=== PATIENT | female | born 1935 | race Caucasian/White ===

== ENCOUNTER 2021-01-14 01:06 | Emergency (ER) | payer MEDICARE, SELFPAY ==
[2021-01-14] VITALS (8 sets, daily range): BP systolic 136–152; BP diastolic 59–87; PULSE 73–75; RESP 14–22; TEMP 36.4; O2SAT 97–100
--- NOTE | ~2021-01-14 | XR_ITS ---
EXAMINATION: XR chest 2V DATE: 01/14/2021 01:43 INDICATION: Dizziness TECHNIQUE: frontal and lateral views of the chest were obtained. COMPARISON: Chest radiograph dated 01/25/[address] dated 12/04/2017 FINDINGS: The lungs remain clear with no focal airspace opacities, pulmonary edema, pleural effusion or pneumot horax. Heart size is normal. Moderate-sized hiatal hernia. Atherosclerotic thoracic aorta. Severe tho racolumbar spondylosis. IMPRESSION: 1. No acute cardiopulmonary disease. 2. Moderate-sized hiatal hernia. Reviewed, dictated and finalized at location A.
--- NOTE | 2021-01-14 01:18 | ECG_ITS ---
Measurements Intervals [place] Rate: 74 P: 44 [place]: 193 QRS: 3 QRSD: 72 T: 31 QT: 380 QTc: 424 Interpretive Statements SINUS RHYTHM CANNOT RULE OUT SEPTAL INFARCT, AGE INDETERMINATE CONSIDER INFERIOR INFARCT, AGE INDETERMINATE BASELINE ARTIFACT- II, III, AVR, AVF ABNORMAL ECG Electronically Signed On 01-14-2021 7:37:45 CDT by Alessandro Tao D.O.
--- NOTE | 2021-01-14 01:33 | PC.NURSE ---
Patient in Xray at this time.
--- NOTE | 2021-01-14 01:37 | ED.DIZZY ---
HPI - Dizziness History of Present Illness HPI Narrative: Dizziness since about 11 PM last night. Feels like light headedness. Only while standing. Mild nausea earlier in the day. No CP, SOB. She has chronic sinus issues, which have been worse recently. Related Data Allergies Allergy/AdvReac Type Severity Reaction Status Date / Time neomycin Allergy Unknown Other Verified 01/19/21 14:23 pregabalin Allergy Unknown Other Verified 01/19/21 14:23 Review of Systems Review of Systems: All systems reviewed & are unremarkable except as noted in HPI and below Constitutional: Constitutional: Denies chills, Denies fever(s) and Denies weakness ENT: Denies vertigo, Reports dizziness and Denies sore throat Cardiovascular: Cardiovascular: Denies chest pain Respiratory: Respiratory: Denies dyspnea Gastrointestinal: Gastrointestinal: Denies abdominal pain and Reports nausea Genitourinary: Genitourinary: Denies hematuria and Denies dysuria Musculoskeletal: Musculoskeletal: Denies back pain Neurologic: Denies confusion, Reports dizziness, Denies headache(s) and Denies weakness [facility] Past Medical History Medical History Anxiety Ataxia Benign essential hypertension BMI 24.0-24.9, adult Chronic rhinitis Colon cancer screening Constipation, chronic Cough Cutaneous cyst Elective procedure for unacceptable cosmetic appearance Encounter for routine adult health examination without abnormal findings Episodic weakness Follow up Hx of Cutler's palsy Hypokalemia Hyponatremia Left ankle swelling Left-sided chest pain LLQ abdominal pain Lower abdominal pain Lumbar radiculopathy Lumbar spondylosis Mixed hyperlipidemia Neuropathy Numbness and tingling of left side of face 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 [employer] Gender identity (if verbalized by the patient): Female Exam Const: General: healthy appearing, no acute distress and alert Orientation/consciousness: patient oriented x3 HENMT: Head: normal to inspection Ears: TM's normal bilaterally Mouth: Yes moist mucous membranes Eyes: Pupils: Equal, round and reactive pupils present EOM: EOMs intact bilaterally Neck: Neck: normal visual inspection Resp: Effort & Inspection: normal respiratory effort Auscultation: clear to auscultation bilaterally, no rales, no rhonchi and no wheezes Cardio: Jugular venous distension: no JVD Rate: regular rate Rhythm: regular rhythm Heart sounds: no murmurs GI: Inspection: non-distended GI Palp: Yes Soft to palpation and No Tenderness to palpation present (GI) Skin: General skin exam: normal color Neuro: General: patient oriented x3 and moves all extremities Speech: normal speech Extrem: General: no edema Psych: Appearance: well kempt Affect: normal affect Course Vital Signs Vital signs: Vital Signs Temperature 36.4 C 01/14/21 01:10 Pulse Rate 74 01/14/21 01:10 Respiratory Rate 14 01/14/21 01:10 Blood Pressure 137/87 01/14/21 01:10 Pulse Oximetry 97
[2021-01-14] MEDS: SODIUM CHLORIDE 0.9% IV 1,000 ML 999 ML IV CONT (01:42)
[2021-01-14] MEDS: MECLIZINE HCL 25 MG TABLET PO (01:42)
[2021-01-14 02:42] LABS: Alanine Aminotransferase 18 U/L (4-35); Albumin Level 3.6 g/dL (3.5-5.1); Alkaline Phosphatase 56 U/L (38-126); Anion Gap 6 mmol/L (8-16); Aspartate Amino Transferase 23 U/L (14-36); Bilirubin,Total 0.2 mg/dL (0.2-1.3); Blood Urea Nitrogen 22 mg/dL (7-17); Calcium 8.5 mg/dL (8.4-10.2); Carbon Dioxide 26 mmol/L (22-30); Chloride 105 mmol/L (98-107); Estimated CRCL calculation 46 ml/min; Estimated Glomerular Filt Rate > 60; Glucose 91 mg/dL (65-110); Potassium 3.7 mmol/L (3.4-5.0); Sodium 137 mmol/L (137-145)
[2021-01-14 02:53] LABS: Basophils Percent Auto 0.5 % (0.2-1.2); Eosinophils Absolute Auto 0.1 K/mm3 (0-0.3); Eosinophils Percent Auto 1.8 % (0-4.4); Hematocrit 36.3 % (37.0-47.0); Hemoglobin 11.4 g/dL (12.0-15.0); Immature Granulocyte Absolute 0.01 K/mm3 (0.00-0.031); Immature Granulocyte Percent A 0.2 % (0-0.5); Lymphocytes Absolute Auto 1.78 K/mm3 (0.9-3.2); Lymphocytes Percent Auto 31.2 % (18.3-44.2); Mean Corpuscular HGB Conc 31.4 g/dl (32-36); Mean Corpuscular Hemoglobin 28.8 pg (26-34); Mean Corpuscular Volume 91.7 fl (80-100); Mean Platelet Volume 9.2 fl (7.4-10.4); Monocytes Absolute Auto 0.6 K/mm3 (0.1-0.6); Monocytes Percent Auto 10.5 % (2.6-8.5); Neutrophils Absolute Auto 3.2 K/mm3 (1.3-6.7); Neutrophils Percent Auto 55.8 % (45.5-73.1); Platelet Count Result 243 k/mm3 (150-375); Red Blood Count 3.96 M/mm3 (4.2-5.4); White Blood Count 5.7 K/mm3 (4.5-10.0)
[2021-01-14 02:56] LABS: Add Urine Microscopic? YES; Appearance Urine Clear (Clear); Bilirubin Urine Negative (Negative); Blood Urine Negative (Negative); Color Urine Yellow (Yellow); Glucose Urine UA Negative (Negative); Ketones Urine Negative (Negative); Leukocyte Esterase Ur Negative LEU/UL (Negative); Nitrate Urine Negative (Negative); Protein Urine Negative (Negative); Specific Grav Ur 1.013 (1.001-1.035); Squamous Epithelial Cell Urine Rare /hpf (Few); Urobilinogen Urine Negative mg/dL (<2.0); WBC Urine 0-3 /hpf
== END 2021-01-14 04:31 ==
PROVIDERS: Emergency Provider Emergency Medicine; PCP Family Medicine
DX: R42 Dizziness and giddiness (principal); I10 Essential (primary) hypertension; E78.2 Mixed hyperlipidemia; G62.9 Polyneuropathy, unspecified; R73.03 Prediabetes; E04.1 Nontoxic single thyroid nodule; Z77.22 Contact with and (suspected) exposure to environmental tobacco smoke (acute) (chronic); R94.31 Abnormal electrocardiogram [ECG] [EKG]
CPT/HCPCS: 36415; 71046; 80053; 81001; 85025; 93005; 96360; 99283; A9270; J7030

== ENCOUNTER 2022-04-01 12:03 | Emergency (ER) | payer MEDICARE, BC, SELFPAY ==
--- NOTE | ~2022-04-01 | XR_ITS ---
EXAMINATION: XR foot LT min 3V DATE: 04/01/2022 12:47 INDICATION: Lateral pain and tenderness at the metatarsals post twisting injury TECHNIQUE: Dorsoplantar, two oblique and lateral views of the left foot were obtained. COMPARISON: 04/04/2015 FINDINGS: Diffuse osteopenia. The prior avulsion fracture at the lateral base of the fifth metatarsal has heale d in essentially anatomic alignment. No acute fractures. Stable appearance of a small amount of chron ic nonaggressive appearing periosteal reaction along the diaphysis of the second-fourth metatarsals. Mild to moderate polyarticular osteoarthritis involving the calcaneocuboid, talonavicular, first and second metatarsophalangeal and multiple tarsometatarsal and interphalangeal joints. No erosions to marks ggest inflammatory arthritis. Soft tissues are unremarkable. IMPRESSION: 1. 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 No acute osseous abnormali ty. Reviewed, dictated and finalized at location A. IMPRESSION: 1. 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 No a cute osseous abnormality.
[2022-04-01 12:07] VITALS: BP 163/78; PULSE 102; RESP 18; TEMP 36.9; O2SAT 97
--- NOTE | 2022-04-01 12:23 | ED.LOWEXIN ---
HPI - Extremity Injury (Lower) General Chief Complaint: Extremity Injury, Lower Stated Complaint: Left Foot Pain Time Seen by Provider: 04/01/22 12:15 Source: patient and family Mode of arrival: ambulatory Limitations: no limitations History of Present Illness HPI Narrative: 86 years old white female came to the ED with left foot pain laterally after getting out of a chair to stand up. No specific trauma, patient denies other injuries. History of osteopenia Related Data Allergies Allergy/AdvReac Type Severity Reaction Status Date / Time neomycin Allergy Unknown Other Verified 01/19/21 14:23 pregabalin Allergy Unknown Other Verified 01/19/21 14:23 Review of Systems Review of Systems: All systems reviewed & are unremarkable except as noted in HPI and below PMFSH Past Medical History Medical History Anxiety Ataxia Benign essential hypertension BMI 24.0-24.9, adult Chronic rhinitis Colon cancer screening Constipation, chronic Cough Cutaneous cyst Elective procedure for unacceptable cosmetic appearance Encounter for routine adult health examination without abnormal findings Episodic weakness Follow up Hx of Cutler's palsy Hypokalemia Hyponatremia Left ankle swelling Left-sided chest pain LLQ abdominal pain Lower abdominal pain Lumbar radiculopathy Lumbar spondylosis Mixed hyperlipidemia Neuropathy Numbness and tingling of left side of face 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, no gross motor deficit Course Course Emergency Course: Stable Vital Signs Vital signs: Vital Signs Temperature 36.9 C 04/01/22 12:07 Pulse Rate 102 H 04/01/22 12:07 Respiratory Rate 18 04/01/22 12:07 Blood Pressure 163/78 H 04/01/22 12:07 Pulse Oximetry 97 04/01/22 12:07 Oxygen Delivery Room Air 04/01/22 12:07 Temperature 36.9 C 04/01/22 12:07 Pulse Rate 102 H 04/01/22 12:07 Respiratory Rate 18 04/01/22 12:07 Blood Pressure 163/78 H 04/01/22 12:07 Pulse Oximetry 97 04/01/22 12:07 Oxygen Delivery Room Air 04/01/22 12:07 MDM - Extremity Injury (Lower) Differential Diagnosis Differential diagnosis: Likely other (Fracture, strain, sprain) Imaging Data Radiologist's impression: Impressions Foot X-Ray 04/01/22 12:56 IMPRESSION: 1. Mild to moderate polyarticular osteoarthritis throughout th
== END 2022-04-01 13:25 | disposition home or self-care (01) ==
PROVIDERS: Emergency Provider Emergency Medicine; PCP Family Medicine
DX: S93.602A Unspecified sprain of left foot, initial encounter (principal); X50.0XXA Overexertion from strenuous movement or load, initial encounter; I10 Essential (primary) hypertension; F41.9 Anxiety disorder, unspecified; K59.09 Other constipation; E78.2 Mixed hyperlipidemia; G62.9 Polyneuropathy, unspecified; R73.03 Prediabetes
CPT/HCPCS: 73630; 99283

== ENCOUNTER 2022-05-14 13:26 | Outpatient (CLI) | payer MEDICARE, BC, SELFPAY ==
--- NOTE | ~2022-05-14 | MMUS_ITS ---
EXAMINATION: MM diagnostic lee ann RT w wen, US breast RT limited HISTORY: Right breast tenderness, history of left mastectomy TECHNIQUE: Craniocaudal, mediolateral, and mediolateral oblique 3-D tomosynthesis images of the right breast were performed and synthetic 2-D images were generated. CAD analysis was submitted and interp reted. High resolution limited right breast ultrasound was performed. COMPARISON: 05/06/1917, 10/14/2015 BREAST PARENCHYMAL COMPOSITION: There are scattered areas of fibroglandular density. FINDINGS: MAMMOGRAPHIC FINDINGS: No suspicious mass, calcification, or architectural distortion are identified malignancy. There has been no suspicious interval change. No mammographic correlate is identified for the reported right b reast tenderness. ULTRASOUND: There is no evidence of focal abnormal solid or cystic mass in the vicinity of the patient's right br east pain. IMPRESSION: 1. No specific mammographic or sonographic correlate is identified for the patient's right breast estella n. Further evaluation at this time should be based on clinical assessment. Continued follow-up physic al examination is recommended. BI-RADS Category 1: Negative Reviewed, dictated and finalized at location A. ITION CONSULTANT IMPRESSION: 1. No specific mammographic or sonographic correlate is identified for the loi ent's right breast pain. Further evaluation at this time should be based on cli nical assessment. Continued follow-up physical examination is recommended. BI-RADS Category 1: Negative
== END 2022-05-14 13:27 | disposition home or self-care (01) ==
PROVIDERS: PCP Family Medicine; Visit Provider Nurse Practitioner Family
DX: N64.4 Mastodynia (principal)
CPT/HCPCS: 76642; 77061; 77065; G0279

== ENCOUNTER 2022-08-02 13:06 | Outpatient (CLI) | payer MEDICARE, BC, SELFPAY ==
--- NOTE | ~2022-08-02 | MR_ITS ---
EXAMINATION: MR brain/brain stem wo con DATE: 08/02/2022 13:45 INDICATION: Facial numbness. TECHNIQUE: Magnetic resonance imaging (MRI) of the brain and brainstem was performed without intraven ous contrast. COMPARISON: Brain MRI 07/04/16 FINDINGS: There are scattered areas of nonspecific increased T2-weighted signal intensity in the cere bral white matter, deep white nuclei, and rei. There is no intracranial hemorrhage, acute infarction, or abnormal intracranial mass lesion. The ventricles are normal in size. There are likely changes of ocular lens replacement surgeries. The paranasal sinuses are clear. The mastoid air cells are normal . IMPRESSION: 1. Extensive nonspecific cerebral white matter disease and disease of the deep white nuclei and rei, which likely represents chronic small vessel ischemic disease, worsened from 07/04/2016. Reviewed, dictated and finalized at location A. HOUSE SUPERVISOR IMPRESSION: 1. Extensive nonspecific cerebral white matter disease and disease of the deep white nuclei and rei, which likely represents chronic small vessel ischemic dis ease, worsened from 07/04/2016.
== END 2022-08-02 13:07 | disposition home or self-care (01) ==
PROVIDERS: PCP Family Medicine; Visit Provider Nurse Practitioner Family
DX: R20.2 Paresthesia of skin (principal); R93.0 Abnormal findings on diagnostic imaging of skull and head, not elsewhere classified
CPT/HCPCS: 70551

== ENCOUNTER 2022-11-26 09:24 | Observation (INO) | payer MEDICARE, BC, SELFPAY ==
[2022-11-26] VITALS (17 sets, daily range): BP systolic 140–178; BP diastolic 58–104; PULSE 78–100; RESP 13–27; TEMP 36.2–37; O2SAT 94–98; BMI 24.4
--- NOTE | ~2022-11-26 | CT_ITS ---
EXAMINATION: CTA brain carotid DATE: 11/26/2022 12:00 INDICATION: Left facial tingling. TECHNIQUE: Computed tomographic angiography (CTA) of the head was performed without and with 100 mL O mnipaque-350 intravenous contrast. CTA of the neck was performed with intravenous contrast. Automated exposure control and iterative reconstruction technique were employed. The dose-length product was 1 705.97 mGy-cm. Maximum intensity projection and volume rendered 3D-reconstructions were created by pradeep garcia technologist on a separate workstation. COMPARISON: Head CT 01/25/2017 FINDINGS: HEAD CTA: There are scattered areas of low attenuation in the cerebral white matter. There is an infa rct in left thalamus. There is no acute intracranial hemorrhage or abnormal mass lesion. The ventricl es are normal in size. There is mild mucosal thickening in the paranasal sinuses. The mastoid air astrid ls are normal. The vertebral arteries are codominant. There is no significant stenosis of basilar art wilfrid or the posterior cerebral arteries. There is no significant stenosis of intracranial internal car otid arteries or anterior or middle cerebral arteries. Anterior communicating artery is normal. The p osterior communicating arteries are normal. There is no aneurysm. NECK CTA: There are nodules in the thyroid measuring up to 13 mm, likely not clinically significant. Calcified mediastinal lymph nodes are consistent with old granulomatous disease. There is no signific ant stenosis of the vertebral arteries. There is plaque in the proximal internal carotid arteries. Th ere is 0% stenosis of the proximal right internal carotid artery relative to normal distal artery lum en diameter (NASCET criteria). There is 0% stenosis of the proximal left internal carotid artery rela tive to normal distal artery lumen diameter. There is severe cervical spondylosis. IMPRESSION: 1. 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 2. Stable extensive nonspecific cerebral white matter disease, which likely represents chronic small vessel ischemic disease. 3. No aneurysm or significant intracranial arterial stenosis. 4. 0% stenosis of the proximal internal carotid arteries relative to normal distal artery lumen diame ters (NASCET criteria). Reviewed, dictated and finalized at location A. IMPRESSION: 1. 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 2. Stable extensive nonspecific cerebral white matter disease, which likely rep resents chronic small vessel ischemic disease. 3. No aneurysm or significant intracranial arterial stenosis. 4. 0% stenosis of the proximal internal carotid arteries relative to normal dis martha artery lumen diameters (NASCET criteria).
--- NOTE | 2022-11-26 09:54 | ED.DIZZY ---
HPI - Dizziness General Chief Complaint: Neuro Symptoms/Deficit <Berto Kendrick PA-C - Last Filed: 11/26/22 15:26> Stated Complaint: facial numbness <ENRIQUETA Inigeuz Last Filed: 11/26/22 15:26> Time Seen by Provider: 11/26/22 09:37 <Berto Kendrick PA-C - Last Filed: 11/26/22 15:26> Source: patient <ENRIQUETA Iniguez Last Filed: 11/26/22 15:26> Mode of arrival: ambulatory <ENRIQUETA Iniguez Last Filed: 11/26/22 15:26> Limitations: no limitations <ENRIQUETA Iniguez Last Filed: 11/26/22 15:26> History of Present Illness HPI Narrative: This is an 87-year-old female with history of spinal stenosis, HTN, facial paresthesias who presents to the ED with chief complaint of left-sided facial numbness and tingling. Reports this has been an intermittent problem for several months this episode has been going on since yesterday afternoon. States she has been seen for this before and told she may have Cutler's palsy or a facial paresthesia. Patient states that she is coming here today because it is acutely worse and she is not able to get into neurology until December. Patient reports some drooping of the left corner of the mouth. Denies any fevers, chills, hearing loss, tinnitus, vision changes, dysarthria, falls, weakness. She is ambulatory with cane here. States she normally uses a rollator due to her chronic lower leg paresthesias. Per chart review MRI in July 2022 shows: 1. Extensive nonspecific cerebral white matter disease and disease of the deep white nuclei and rei, which likely represents chronic small vessel ischemic disease, worsened from 07/04/2016. <ENRIQUETA Iniguez Last Filed: 11/26/22 15:26> Related Data Home Medications: Home Medications Medication Instructions Recorded Confirmed aspirin 81 mg tablet,delayed 81 mg PO DAILY 04/24/22 11/26/22 release calcium carbonate 600 mg-vitamin 2 tablet PO DAILY 04/24/22 11/26/22 D3 5 mcg (200 unit) tablet polyethylene glycol 3350 17 17 g PO DAILY PRN Constipation 04/24/22 11/26/22 gram/dose oral powder (Miralax) vitamin B complex 1 tablet PO DAILY 04/24/22 11/26/22 acetaminophen 325 mg tablet 650 mg PO Q8H PRN Pain 11/26/22 11/26/22 (Tylenol) celecoxib 200 mg capsule (Celebrex) 400 mg PO DAILY arthritis 11/26/22 11/26/22 felodipine 10 mg tablet,extended 10 mg PO DAILY 11/26/22 11/26/22 release 24 hr losartan 25 mg tablet 25 mg PO DAILY 11/26/22 11/26/22 melatonin 1 mg tablet 1 mg PO HS PRN Insomnia 11/26/22 11/26/22 mv-mn-folic 200 mcg-vit K 15 2 cap PO DAILY 11/26/22 11/26/22 mcg-lutein 5 mg-zeaxanthin 1 mg capsule (PreserVision AREDS 2 Plus Multivit) <Berto Kendrick PA-C - Last Filed: 11/26/22 15:26> Allergies/Adverse Reactions: Allergies Allergy/AdvReac Type Severity Reaction Status Date / Time neomycin Allergy Unknown Other Verified 11/26/22 18:21 pregabalin Allergy Unknown Other Verified 11/26/22 18:21 <Berto Kendrick PA-C - Last Filed: 11/26/22 15:26> Review of Systems Review of Systems: CONSTITUTIONAL: Denies fever, chills, or sweats. EYES: Denies visual changes, redness, or discharge. ENT: Denies rhinorrhea, congestion, sore throat, or otalgia. CARDIOVASCULAR: Denies chest pain, palpitations, or edema. RESPIRATORY: Denies cough or dyspnea. GASTROINTESTINAL: Denies abdominal pain, nausea, vomiting, or diarrhea. GENITOURINARY: Denies dysuria or hematuria. SKIN: Denies rash or itching. MUSCULOSKELETAL: Denies back pain, joint pain, or myalgia. NEUROLOGIC: See HPI PSYCHIATRIC: Denies anxiety or depression. <Berto Kendrick PA-C - Last Filed: 11/26/22 15:26> [facility] Past Medical History Medical History: Medical History (Updated 11/26/22 @ 13:01 by Berto Kendrick PA-C) Anxiety Ataxia Benign essential hypertension BMI 22.0-22.9, adult BMI 23.0-23.9, adult BMI 24.0-24.9, adult Chronic rhinitis Colon cancer screening Constipation, chronic Cough Cutaneous cyst
[2022-11-26 10:37] LABS: Basophils Absolute Auto 0.1 K/mm3 (0.0-0.1); Basophils Percent Auto 0.9 % (0.2-1.2); Eosinophils Absolute Auto 0.2 K/mm3 (0-0.3); Eosinophils Percent Auto 3.4 % (0-4.4); Hematocrit 42.4 % (37.0-47.0); Immature Granulocyte Absolute 0.02 K/mm3 (0.00-0.031); Immature Granulocyte Percent A 0.4 % (0-0.5); Lymphocytes Absolute Auto 1.36 K/mm3 (0.9-3.2); Lymphocytes Percent Auto 24.6 % (18.3-44.2); Mean Platelet Volume 9.2 fl (7.4-10.4); Monocytes Absolute Auto 0.6 K/mm3 (0.1-0.6); Monocytes Percent Auto 10.3 % (2.6-8.5); Neutrophils Absolute Auto 3.3 K/mm3 (1.3-6.7); Neutrophils Percent Auto 60.4 % (45.5-73.1); Platelet Count Result 269 k/mm3 (150-375); Red Blood Count 4.51 M/mm3 (4.2-5.4); Red Cell Distribution Width 11.9 % (11.5-14.5); White Blood Count 5.5 K/mm3 (4.5-10.0)
[2022-11-26 10:44] LABS: INR 0.9; Prothrombin Time 13.1 Seconds (11.1-14.7)
[2022-11-26 10:45] LABS: Alanine Aminotransferase 23 U/L (6-35); Albumin Level 4.1 g/dL (3.5-5.1); Alkaline Phosphatase 57 U/L (38-126); Anion Gap 3 mmol/L (8-16); Aspartate Amino Transferase 30 U/L (14-36); Bilirubin,Total 0.5 mg/dL (0.2-1.3); Blood Urea Nitrogen 15 mg/dL (7-17); Calcium 9.4 mg/dL (8.4-10.2); Carbon Dioxide 32 mmol/L (22-30); Chloride 103 mmol/L (98-107); Estimated CRCL calculation 44 ml/min; Estimated Glomerular Filt Rate > 60; Glucose 93 mg/dL (65-110); Sodium 138 mmol/L (137-145)
--- NOTE | 2022-11-26 17:20 | ADMGEN ---
This patient, Patricia Fabian, was admitted to Medical Room 249-01. Patient/family oriented to hospital policies and general routines including ID bracelet, bed and alarms, visiting hours, pain management, procedures, bathroom and other care routines, personal items, smoking policy, room service/diet, and visiting hours. Information on how to activate the Rapid Response Team has been discussed. Patient/Family are encouraged to report perceived risks to care and to ask questions if they do not understand what they are told or what they should do.
--- NOTE | 2022-11-26 21:42 | PM.IMHP ---
H&P: HPI History of Present Illness Date/Time: 11/26/22 19:30 Chief Complaint: Numbness and tingling on the left side of the face. Narrative: This is a very pleasant 87-year-old female with hypertension, hyperlipidemia, and GERD who presented to the emergency department via pre vehicle from home for evaluation of numbness and tingling on the left side of the face. The patient provides the following history. She has had intermittent paresthesias on the left side of her face for years and on occasion she has some drooping of the left side of her mouth. At 1 point in time her doctor thought perhaps she had Cutler palsy but could not say for certain. Brain MRI done in July 2022 showed extensive nonspecific cerebral white matter disease and disease of the deep white nuclei and rei likely representing chronic small-vessel ischemic disease. She was referred to Neurology for evaluation of the symptoms however does not have an appointment until February. Today she had worsening symptoms including numbness and tingling on the left forehead and left cheek including the left side of her lips. She also reports having a fullness in her ears and when she tried to clean it out with a Q-tip she noticed a small amount of blood so she came in for evaluation. Aside from a small amount of blood on the Q-tip, none of these symptoms are new today or acutely worse. CT of the head and neck today showed an age-indeterminate infarct in the left thalamus which is new from 01/25/2017, and no aneurysm or significant intracranial stenosis, and no stenosis of the proximal internal carotid arteries, and stable extensive nonspecific cerebral white matter disease. ED provider discussed the case with Dr. Orellana who recommends admitting her for further evaluation. At the time my evaluation she is resting comfortably and has no specific complaints. She denies fever, chills, sweats, headache, ear pain, sinus congestion, sore throat, difficulty speaking and swallowing, chest pain, nausea, vomiting, diarrhea, dysuria, and edema. Review of Systems Review of Systems: Twelve systems were reviewed and are negative except for as per HPI. [facility] Past Medical History Medical History (Updated 11/27/22 @ 00:13 by Lis Rosado PA-C) Anxiety Benign essential hypertension Cancer of left breast Gastroesophageal reflux disease History of Cutler's palsy Lumbar radiculopathy Lumbar spondylosis Mixed hyperlipidemia Peripheral neuropathy Pre-diabetes Pulmonary nodule Transient ischemic attack Vascular malformation Surgical History Surgical History (Updated 11/26/22 @ 21:51 by Lis Rosado PA-C) History of appendectomy History of cataract extraction History of left knee replacement History of left mastectomy Family History Family History Father Carcinoma of colon Mother No problems noted. Sibling Neuropathy Other Malignant neoplasm of prostate Social History Social History (Updated 11/26/22 @ 21:52 by Lis Rosado PA-C) Social History: Surrogate medical decision maker: Nate Fabian, son. Code status: Full code. Smoking status: Never smoker Second hand tobacco smoke exposure: Yes Alcohol intake: current Drinks per week: 1 Substance use: never Substance use type: does not use Lack of Transportation: No Lack of Food: Never True Current Housing: I Have Housing Concerned About Future Housing: No Difficulty Paying Gas/Electric Bills: No Difficulty Paying for Meds: No Currently Unemployed: No Education: High School Diploma/GED Difficulty w/ Childcare or Family Care: No Living arrangements: alone Additional living arrangements comments: Independent living at [facility]. 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 Spiritual care concerns: No Meds Home M
[2022-11-27] VITALS: PULSE 81
--- NOTE | 2022-11-27 00:17 | ECHO_ITS ---
Patient Info Name: Patricia Fabian Age: 87 years : 1935 Gender: Female Ht: 62 in Wt: 133 lbs BSA: 1.64 m2 HR: 68 bpm BP: 142 / 57 mmHg Heart Rhythm: Sinus Rhythm Technical Quality: Good Exam Date: 11/27/2022 10:15 AM Exam Location: [facility] Pulmonary Patient Status: Outpatient Admit Date: 11/26/2022 Staff Ordering Physician: Lis Rosado PA-C Power Hair Clipper: Shari Boyer RDCS Attending Provider: Alfredo Michael MD Referring Physician: Ashlee WHYTE; Exam Type: CA echo doppler w bubble study Study Info Indications - neurologic symptoms, htn Complete two-dimensional, color flow and Doppler transthoracic echocardiogram is performed with agitated saline. Contrast/Agitated Saline Contrast/Ag. Saline: Agitated Saline Amount: 20.00 ml Administered By: Sallie Armstrong RDCS Existing IV Access: Yes IV Access Condition: patent with no signs of infiltration Summary 1. Left ventricular chamber dimension is normal. 2. Left ventricular systolic function is hyperdynamic, estimated at >70%. Abnormal LVOT contour without significant gradient. 3. There is mildly increased left ventricular wall thickness. 4. The left ventricular diastolic function is grade I diastolic dysfunction. 5. No clear evidence for [id number] atrial shunt with injection of agitated saline with and without Valsalva. 6. There is mild mitral valve regurgitation. 7. There is no aortic valve stenosis. 8. There is mild tricuspid valve regurgitation. 9. No pulmonary hypertension, estimated pulmonary arterial systolic pressure is 30 mmHg. Left Ventricle Left ventricular chamber dimension is normal. Left ventricular systolic function is hyperdynamic, estimated at >70%. Abnormal LVOT contour without significant gradient. There is mildly increased left ventricular wall thickness. The left ventricular diastolic function is grade I diastolic dysfunction. Right Ventricle Right ventricular chamber dimension is normal. Right ventricular systolic function is normal. Left Atria Left atrial chamber dimension is normal. Right Atria Right atrial chamber dimension is normal. Atrial Septum No clear evidence for [id number]-[id number] atrial shunt with injection of agitated saline with and without Valsalva. Aortic Valve The aortic valve is trileaflet. There is mild aortic valve sclerosis. There is no aortic valve stenosis. There is no aortic valve regurgitation. Pulmonic Valve The pulmonic valve is not well visualized. There is mild pulmonic regurgitation. Mitral Valve The mitral valve has thickened leaflets. There is mild mitral valve regurgitation. The mitral valve annulus is moderately calcified. Tricuspid Valve The tricuspid valve leaflets are normal. There is mild tricuspid valve regurgitation. No pulmonary hypertension, estimated pulmonary arterial systolic pressure is 30 mmHg. Pericardium/Pleural The pericardium appears normal. There is no pericardial effusion. Inferior Vena Cava Normal inferior vena cava with >50% collapse upon inspiration consistent with normal right atrial pressure, 5 mmHg. Aorta The aortic root size at the sinus of Valsalva is normal. There is mild aortic atherosclerosis. Left Ventricular Outflow Tract Name Value Normal LVOT 2D LVOT Diameter
[2022-11-27 04:00] VITALS: PULSE 65
[2022-11-27 05:06] VITALS: BP 142/59; PULSE 68; RESP 18; TEMP 36.1; O2SAT 97
[2022-11-27 08:00] VITALS: PULSE 78
[2022-11-27] MEDS: FERROUS SULFATE 324 MG TABLET PO (08:01)
[2022-11-27] MEDS: CELECOXIB 200 MG CAPSULE 400 MG PO (08:01)
[2022-11-27] MEDS: PANTOPRAZOLE 40 MG TABLET PO (08:02)
[2022-11-27] MEDS: ASPIRIN 81 MG ENTERIC TABLET PO (08:02)
[2022-11-27] MEDS: VITAMIN B COMPLEX CAPSULE 1 CAP PO (08:02)
[2022-11-27] MEDS: PRAVASTATIN SODIUM 20 MG TABLET PO (08:03)
[2022-11-27] MEDS: OPTI-GEN TAB 1 TABLET PO (08:03)
[2022-11-27] MEDS: FELODIPINE 5 MG TAB CR 10 MG PO (08:03)
[2022-11-27] MEDS: MIRABEGRON 25 MG ER TABLET PO (08:03)
[2022-11-27] MEDS: LOSARTAN POTASSIUM 25 MG TABLET PO (08:03)
--- NOTE | 2022-11-27 11:03 | WPDNEURCNPN ---
Assessment and Plan Assessment and plan (1) Peripheral neuropathy: Code(s): G62.9 - Polyneuropathy, unspecified Status: Acute (2) Facial paresthesia: Code(s): R20.2 - Paresthesia of skin Status: Acute Plan Left-sided facial symptomatology with no evidence of abnormalities on the MRI of the brain or CTA of the brain could be related to the local problem the investigations have been ordered to rule out the possibility of the TIA on the basis of the cardiac origin that is echocardiogram otherwise she can continue only on aspirin and I will make a thorough discussion with her while her her son is listening to our discussion she is taking all the medications accordingly she does have a 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 Consult date: 11/27/22 HPI: Patricia Fabian is a 87 year old femaleAdmitted to the hospital through the emergency room the complaints of facial paresthesia and left-sided facial numbness of intermittent in nature but of long duration though with recent x-rays survey gaona as per the patient she had been told in the past that it could be related to the Cutler's palsy the reason she came to the emergency room because it was worse than before she also reported that she noted the drooping of the left corner of the mouth but she gave no history of any other generalized symptomatology her medications included aspirin 81 mg daily losartan 25 mg daily she is allergic to neomycin and pregabalin and has ongoing history of in the past anxiety and ataxia also pre diabetes She drinks only 1 drink per week and initial exam in the emergency room was documented as normal except the subjectively altered sensation in V2 and V3 distribution on the left side. Vital signs were normal with blood pressure 160/72, CBC was normal X so as the CMP and complete lab was normal also.. Pertinent radiological investigations include CTA of the brain which documents infarct in the left thalamus which is new from January 25, 2017 and extensive nonspecific white matter changes but no aneurysm or intracranial arterial stenosis jann proximal internal carotid arteries bilaterally. MRI of the brain in July was with extensive nonspecific white matter disease and disease of the deep white nuclei and rei on the basis of chronic Review of Systems Review of Systems: All systems reviewed & are unremarkable except as noted in HPI and below PMFSH Past Medical History Medical History (Updated 11/27/22 @ 00:13 by Lis Rosado PA-C) Anxiety Benign essential hypertension Cancer of left breast Gastroesophageal reflux disease History of Cutler's palsy Lumbar radiculopathy Lumbar spondylosis Mixed hyperlipidemia Peripheral neuropathy Pre-diabetes Pulmonary nodule Transient ischemic attack Vascular malformation Surgical History Surgical History (Updated 11/26/22 @ 21:51 by Lis Rosado PA-C) History of appendectomy History of cataract extraction History of left knee replacement History of left mastectomy Family History Family History Father Carcinoma of colon Mother No problems noted. Sibling Neuropathy Other Malignant neoplasm of prostate Social History Social History (Updated 11/26/22 @ 21:52 by Lis Rosado PA-C) Social History: Surrogate medical decision maker: Nate Fabian, son. Code status: Full code. Smoking status: Never smoker Second hand tobacco smoke exposure: Yes Alcohol intake: current Drinks per week: 1 Substance use: never Substance use type: does not use Lack of Transportation: No Lack of Food: Never True Current Housing: I Have Housing Concerned About Future Housing: No Difficulty Paying Gas/Electric Bills: No Difficulty Paying for Meds: No Currently Unemployed: No Educatio
--- NOTE | 2022-11-27 12:35 | PM.DS ---
DS: Admitting Diagnosis Discharge Date 11/27/2022 Admitting Diagnosis Numbness and tingling on the left side of the face. DS: Discharge Diagnosis Discharge Diagnosis Plan The patient presented to the emergency department for evaluation of left-sided paresthesias as detailed in HPI. This is unfortunately been an ongoing issue for several years and seems to come and go. Today her symptoms worse than usual and she noticed a small amount of blood on a Q-tip when she went to clean out her left ear and this prompted her to come in for evaluation. CTA of the brain and carotids showed an age-indeterminate infarct in the left thalamus which is new from 01/25/2017, stable extensive nonspecific cerebral white matter disease which likely represents chronic small-vessel ischemic disease, no aneurysm or significant arterial stenosis, and 0.7 stenosis of the proximal internal carotid arteries. Brain MRI in July showed extensive nonspecific cerebral white matter disease in disease of the deep white nuclei and rei which likely represents chronic small-vessel ischemic disease. Due to her ongoing symptoms in inability to see a neurologist for almost another 6 months, she is being admitted for close monitoring and neurology consultation. She has minimal deficits on exam, mainly subjective change in touch and slight left-sided mouth droop. She will be monitor on telemetry. Echocardiogram with bubble has been ordered. Check vitamin B12 levels. Continue neurologic checks. She does have idiopathic peripheral neuropathy in her feet and was tried on Lyrica previously but she had allergic reaction to that. Her blood pressures have been running in the 150s to 160 systolic. Continue current antihypertensives and trend for now. The rest of her home medications will be reviewed and resumed as appropriate. DS: Summary Hospital Course Reason for hospitalization: Numbness and tingling on the left side of the face. Narrative: This is a very pleasant 87-year-old female with hypertension, hyperlipidemia, and GERD who presented to the emergency department via pre vehicle from home for evaluation of numbness and tingling on the left side of the face. The patient provides the following history. She has had intermittent paresthesias on the left side of her face for years and on occasion she has some drooping of the left side of her mouth. At 1 point in time her doctor thought perhaps she had Cutler palsy but could not say for certain. Brain MRI done in July 2022 showed extensive nonspecific cerebral white matter disease and disease of the deep white nuclei and rei likely representing chronic small-vessel ischemic disease. She was referred to Neurology for evaluation of the symptoms however does not have an appointment until February. Today she had worsening symptoms including numbness and tingling on the left forehead and left cheek including the left side of her lips. She also reports having a fullness in her ears and when she tried to clean it out with a Q-tip she noticed a small amount of blood so she came in for evaluation. Aside from a small amount of blood on the Q-tip, none of these symptoms are new today or acutely worse. CT of the head and neck today showed an age-indeterminate infarct in the left thalamus which is new from 01/25/2017, and no aneurysm or significant intracranial stenosis, and no stenosis of the proximal internal carotid arteries, and stable extensive nonspecific cerebral white matter disease. ED provider discussed the case with Dr. Orellana who recommends admitting her for further evaluation. At the time my evaluation she is resting comfortably and has no specific complaints. She denies fever, chills, sweats, headache, ear pain, sinus congestion, sore throat, difficulty speaking and swallowing, chest pain, nausea, vomiting, diarrhea, dysuria, and edema. Hospital Course: 87-year-old feel presents with an complaint of numbness and tingling on left side her face CTA scan of the head a
== END 2022-11-27 13:35 | disposition home or self-care (01) ==
LOC: ANHED 13:01 → ANH2MED 11-27 10:24 → ANH3MEDSUR 11-29 09:43
PROVIDERS: Physician Assistant; Admitting Provider Hospitalist; Emergency Provider Physician Assistant; PCP Family Medicine; Visit Provider Family Medicine
DX: R20.2 Paresthesia of skin (principal); R20.0 Anesthesia of skin; R29.810 Facial weakness; H93.90 Unspecified disorder of ear, unspecified ear; I11.9 Hypertensive heart disease without heart failure; G62.9 Polyneuropathy, unspecified; M48.00 Spinal stenosis, site unspecified; R90.82 White matter disease, unspecified; F41.9 Anxiety disorder, unspecified; K59.09 Other constipation; I08.3 Combined rheumatic disorders of mitral, aortic and tricuspid valves; E78.2 Mixed hyperlipidemia; R73.03 Prediabetes; Z77.22 Contact with and (suspected) exposure to environmental tobacco smoke (acute) (chronic); F10.90 Alcohol use, unspecified, uncomplicated; Z87.898 Personal history of other specified conditions; Z79.82 Long term (current) use of aspirin; Z79.1 Long term (current) use of non-steroidal anti-inflammatories (NSAID); Z79.899 Other long term (current) drug therapy; Z82.0 Family history of epilepsy and other diseases of the nervous system
CPT/HCPCS: 36415; 70496; 70498; 80053; 82607; 84443; 85025; 85610; 93306; 96375; 99285; A9270; G0378; Q9967

== ENCOUNTER 2023-08-02 10:50 | Inpatient (IN) | payer MEDICARE, BC, SELFPAY ==
[2023-08-02] VITALS (15 sets, daily range): BP systolic 151–186; BP diastolic 63–94; PULSE 85–112; RESP 14–19; TEMP 36.3–37.1; O2SAT 96–98; BMI 21.9
--- NOTE | ~2023-08-02 | MR_ITS ---
EXAMINATION: MR brain/brain stem wo con DATE: 08/03/2023 12:45 INDICATION: Confusion TECHNIQUE: Magnetic resonance imaging (MRI) of the brain and brainstem was performed without intraven ous contrast. Sequences included sagittal and axial T1-weighted SE, axial diffusion-weighted FS SE, a xial T2*-weighted GRE, axial T2-weighted FLAIR, and axial T2-weighted FSE. Postcontrast axial and cor onal T1-weighted SE was obtained. Apparent diffusion coefficient (ADC) maps were created. COMPARISON: None. FINDINGS: There are no areas of restricted diffusion to suggest acute infarction. Small old lacunar infarct at the left thalamus. No intracranial hemorrhage or abnormal intracranial mass lesion. There are scatter ed areas of nonspecific increased T2-weighted signal intensity in the pontine and cerebral white rosalba er, predominantly involving the deep and periventricular white matter. There are no intraparenchymal signal abnormalities seen on the other pulse sequences. The ventricles are symmetric and normal in si ze. There are no abnormal extra-axial fluid collections. Flow voids are seen in the cerebral arteries on the T2-weighted sequences consistent with their expected patency. Changes of bilateral intraocula r lens replacement. Visualized orbits and soft tissues are unremarkable. IMPRESSION: 1. 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 No acute intracranial process. 2. Moderate scattered nonspecific pontine common cerebral white matter T2 hyperintensity consistent w ith chronic small vessel ischemic disease. Reviewed, dictated and finalized at location A. URE FINISHER IMPRESSION: 1. 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 No acute intracranial process. 2. Moderate scattered nonspecific pontine common cerebral white matter T2 hyper intensity consistent with chronic small vessel ischemic disease.
--- NOTE | ~2023-08-02 | CT_ITS ---
EXAMINATION: CTA BRAIN/CAROTID DATE: 08/02/2023 14:32 INDICATION: Confusion with altered mental status TECHNIQUE: Computed tomographic angiography (CTA) of the head and neck was performed with 100 mL Omni paque-350 intravenous contrast. Multiplanar reconstructions and maximum intensity projection 3D-recon structions of the carotid arteries and of the intracranial arteries were created by the technologist on a separate workstation. Automated exposure control and iterative reconstruction technique were emp loyed.The dose-length product was 1059.02 mGy-cm. COMPARISON: None. FINDINGS: Carotid arteries: There is motion artifact at the level of the odontoid process which he does not affect assessment at the right carotid bulb where there is a small amount of atherosclerotic plaque with 0% stenosis of th e right carotid bulb relative to normal distal artery lumen diameter (NASCET criteria). There is reuben on artifact at the level of the left carotid bulb. There is a small amount of nonhemodynamically sign ificant atherosclerotic plaque at the distalmost left common carotid artery but no discernible athero sclerotic plaque at the level of the right carotid bulb. Calcified nodule at the right upper lobe. Vi sualized upper lungs are otherwise unremarkable. Severe cervical spondylosis. Intracranial arteries There is significant motion artifact at the level of the carotid canals at the petrous bones as well as at the level of the distal vertebral and proximal basilar arteries which are unable to be diagnost ically assessed at this level. The bilateral vertebral arteries are codominant. There is atherosclero tic calcification without hemodynamic significant stenosis at the bilateral vertebral arteries and at the bilateral carotid siphons. No other hemodynamically significant stenosis in the non obscured por tions of the vertebral, basilar and internal carotid arteries. There are no aneurysms identified. Wero th A1 and P1 segments are patent. Cerebral arterial arborization appears symmetric. IMPRESSION: 1. Limited assessment at the level of the left carotid bulb, distal vertebral and proximal basilar ar teries and at the petrous portion of the bilateral internal carotid arteries due to significant motio n artifact at these levels. 2. 0% stenosis of the right carotid bulb relative to normal distal artery lumen diameter (NASCET crit eria). 3. No discernible atherosclerotic plaque at the left carotid bulb however assessment is moderately li mited by motion. 4. Scattered nonhemodynamically significant atherosclerotic plaque at the visualized portions of the bilateral vertebral arteries and at the bilateral carotid siphons. No aneurysm, hemodynamically signi ficant stenosis or necrosis of the cerebral arteries At or above the level of the [place]. Reviewed, dictated and finalized at location A. CTION WAX MOLDER IMPRESSION: 1. Limited assessment at the level of the left carotid bulb, distal vertebral a nd proximal basilar arteries and at the petrous portion of the bilateral qa intern al carotid arteries due to significant motion artifact at these levels. 2. 0% stenosis of the right carotid bulb relative to normal distal artery lumen diameter (NASCET criteria). 3. No discernible atherosclerotic plaque at the left carotid bulb however asses sment is moderately limited by motion. 4. Scattered nonhemodynamically significant atherosclerotic plaque at the visua lized portions of the bilateral vertebral arteries and at the bilateral carotid siphons. No aneurysm, hemodynamically significant stenosis or necrosis of the cerebral arteries At or above the level of the [place].
--- NOTE | ~2023-08-02 | CT_ITS ---
EXAMINATION: CT brain wo con DATE: 08/02/2023 14:03 INDICATION: Confusion TECHNIQUE: Computed tomography (CT) of the head was performed without intravenous contrast. The mA wa s adjusted according to patient size. Iterative reconstruction technique was employed. Exam dose: 60 5.33 mGy-cm total exam DLP. COMPARISON: 11/26/2022 CTA brain carotid 08/02/2022 MRI brain/brainstem FINDINGS: Bilateral vertebral artery, basilar artery and carotid siphon internal carotid artery calci fications. Bilateral basal ganglia calcifications. There is prominent patchy diminished attenuation of the cerebral white matter, nonspecific, likely du e to chronic small vessel ischemic changes. Chronic lacunar infarct of left thalamus. No intracranial mass lesion or hemorrhage or cerebrovascular accident, midline shift or mass effect i s detected otherwise. No subdural or epidural hematoma. The orbital contents are unremarkable. Included paranasal sinuses and mastoid air cells are normally developed and aerated. No fracture or bone destruction of the cranial vault. IMPRESSION: Chronic lacunar infarct of the thalamus Cerebral atherosclerosis and chronic small vessel ischemic changes of the cerebral white matter No acute intracranial finding Reviewed, dictated and finalized at Location A. Reviewed, dictated and finalized at location B. ITY ENGINEER MEDICAL DEVICE IMPRESSION: Chronic lacunar infarct of the thalamus Cerebral atherosclerosis and chronic small vessel ischemic changes of the cereb ral white matter No acute intracranial finding
--- NOTE | ~2023-08-02 | CT_ITS ---
EXAMINATION: CT abdomen pelvis wo con DATE: 08/03/2023 13:17 INDICATION: right flank pain, mciroscopic hematuria TECHNIQUE: Computed tomography (CT) of the abdomen and pelvis was performed without intravenous contr ast. Automated exposure control and iterative reconstruction technique were employed. The dose-length product was 292.83 mGy-cm. COMPARISON: 09/20/2016; CT chest 12/04/2017. FINDINGS: Lower thorax: Multiple right lung pulmonary nodules, all of which demonstrate slight interval increas e in size since the prior study. Large hiatal hernia. Mitral annulus calcification. Liver: Normal. Biliary/Gallbladder: Gallbladder contains excreted contrast. No bile duct dilation. Pancreas: No mass. Stable chronic duct dilation. Spleen: Normal. Adrenals: Bilateral adrenal thickening, likely hyperplasia. Kidneys: No suspicious mass, obstructing stone, or hydronephrosis. Punctate bilateral nonobstructing calcifications. Subcentimeter left midpole hypodensity may represent hemorrhagic or proteinaceous cys t. GI tract: No small or large bowel dilation. The appendix is not confidently visualized. Diverticulosi s without diverticulitis. Mesentery/Peritoneum: No ascites, mass, or free air. Retroperitoneum: No mass. Atherosclerotic abdominal aortic and/or arterial calcifications. Pelvis: Excreted contrast in the urinary bladder. Contrast in the vaginal cuff, likely refluxed urine . Normal uterus. Ovaries not identified. Soft Tissues: Soft tissues and body wall unremarkable. Bones: No acute osseous finding. Multilevel severe degenerative disc disease. Grade 1/2 anterolisthe sis at L4-5 with severe central canal stenosis. IMPRESSION: Multiple right lung pulmonary nodules demonstrating slow interval growth since the prior study in 201 8. Given the slow growth, benign disease is favored. No CT evidence of obstructive uropathy. Bilateral adrenal hyperplasia. Reviewed, dictated and finalized at location K. NG MACHINE OPERATOR IMPRESSION: Multiple right lung pulmonary nodules demonstrating slow interval growth since the prior study in 2018. Given the slow growth, benign disease is favored. No CT evidence of obstructive uropathy. Bilateral adrenal hyperplasia.
--- NOTE | ~2023-08-02 | CT_ITS ---
EXAMINATION: CTA neck DATE: 08/03/2023 13:17 INDICATION: altered LOC, previous images insufficient TECHNIQUE: Computed tomographic angiography (CTA) of the neck was performed with 100 mL Omnipaque-350 intravenous contrast. Automated exposure control and iterative reconstruction technique were employe d. The dose-length product was 510.45 mGy-cm. Maximum intensity projection and volume rendered 3D-re constructions were created by the technologist on a separate workstation. COMPARISON: 08/02/2023. FINDINGS: CTA NECK: Aortic arch and proximal great vessels: Bovine arch anatomy. Moderate arch calcifications. Right common carotid, carotid bifurcation, and internal carotid artery: Mild calcification at the bif urcation.There is 0% stenosis of the proximal right internal carotid artery relative to normal distal artery lumen diameter (NASCET criteria). Left common carotid, carotid bifurcation, and internal carotid artery: Mild calcification at the bifu rcation.There is 0% stenosis of the proximal left internal carotid artery relative to normal distal a rtery lumen diameter (NASCET criteria). Vertebral arteries: No significant plaque or stenosis. Vertebral arteries co-dominant. Other findings: Cervical spondylosis. Thyroid nodules, previously evaluated by thyroid ultrasound. IMPRESSION: No carotid or vertebral artery occlusion, dissection, or significant stenosis. Reviewed, dictated and finalized at location K. CAR PUSHER
--- NOTE | ~2023-08-02 | MR_ITS ---
EXAMINATION: MRA brain wo con DATE: 08/03/2023 13:00 INDICATION: Altered level of consciousness EXAMINATION: MRA brain wo con TECHNIQUE: Magnetic resonance angiography (MRA) of the brain was performed without intravenous contrast by the 3 D [id number] technique. COMPARISON: Brain CT angiogram dated 08/02/2023 and 11/26/2022 FINDINGS: There is normal flow related signal seen within the vertebral, basilar and internal carotid arteries. Bilateral vertebral arteries are codominant. No evident hemodynamically significant stenosis or aneu rysms identified. Both A1 and P1 segments are patent. There appears to also be a patent anterior com municating artery. Flow in the cerebral arteries is symmetric. IMPRESSION: 1. No aneurysm or significant intracranial arterial stenosis. Reviewed, dictated and finalized at location A. NSE EXAMINER
--- NOTE | 2023-08-02 11:23 | ECG_ITS ---
Measurements Intervals [place] Rate: 89 P: 63 FL: 173 QRS: 37 QRSD: 76 T: 52 QT: 336 QTc: 411 Interpretive Statements SINUS RHYTHM POSSIBLE LEFT ATRIAL ENLARGEMENT [-0.1mV P WAVE IN V1/V2] ANTEROSEPTAL MYOCARDIAL INFARCTION , OF INDETERMINATE AGE [40+ ms Q WAVE IN V1-V4] ABNORMAL ECG COMPARED TO ECG 01/14/2021 01:21:41 NO SIGNIFICANT CHANGES Electronically Signed On 08-02-2023 15:27:14 TUMBLER TENDER by Greg Ureña M.D.
[2023-08-02 11:43] LABS: Basophils Percent Auto 0.6 % (0.2-1.2); Eosinophils Percent Auto 0.3 % (0-4.4); Hematocrit 44.2 % (37.0-47.0); Hemoglobin 14.3 g/dL (12.0-15.0); Immature Granulocyte Absolute 0.01 K/mm3 (0.00-0.031); Immature Granulocyte Percent A 0.1 % (0-0.5); Lymphocytes Absolute Auto 0.85 K/mm3 (0.9-3.2); Lymphocytes Percent Auto 12.1 % (18.3-44.2); Mean Corpuscular HGB Conc 32.4 g/dl (32-36); Mean Corpuscular Hemoglobin 30.6 pg (26-34); Mean Corpuscular Volume 94.4 fl (80-100); Mean Platelet Volume 9.1 fl (7.4-10.4); Monocytes Absolute Auto 0.5 K/mm3 (0.1-0.6); Monocytes Percent Auto 6.4 % (2.6-8.5); Neutrophils Absolute Auto 5.7 K/mm3 (1.3-6.7); Neutrophils Percent Auto 80.5 % (45.5-73.1); Platelet Count Result 299 k/mm3 (150-375); Red Blood Count 4.68 M/mm3 (4.2-5.4); Red Cell Distribution Width 12.1 % (11.5-14.5)
[2023-08-02 11:56] LABS: Alanine Aminotransferase 21 U/L (6-35); Albumin Level 4.3 g/dL (3.5-5.1); Alkaline Phosphatase 59 U/L (38-126); Anion Gap 5 mmol/L (8-16); Aspartate Amino Transferase 25 U/L (14-36); Bilirubin,Total 0.8 mg/dL (0.2-1.3); Blood Urea Nitrogen 19 mg/dL (7-17); Calcium 9.9 mg/dL (8.4-10.2); Carbon Dioxide 31 mmol/L (22-30); Chloride 98 mmol/L (98-107); Estimated CRCL calculation 41 ml/min; Estimated Glomerular Filt Rate > 60; Glucose 144 mg/dL (65-110); Sodium 134 mmol/L (137-145)
[2023-08-02 11:59] LABS: INR 0.9; Partial Thromboplastin Time 24.8 SECONDS (22.3-36.8); Prothrombin Time 12.1 Seconds (11.1-14.7)
--- NOTE | 2023-08-02 12:50 | ED.AMS ---
HPI - Altered Mental Status General Chief Complaint: Altered Mental Status Stated Complaint: confusion, not talking right Time Seen by Provider: 08/02/23 12:50 History of Present Illness HPI narrative: Patient is an 88-year-old female with history of prior TIA with left facial deficits at that time, HTN here with confusion. Daughter believes sometime this morning she must have become more altered because when she went to see her, her pants were on backwards and her shoes were on the wrong feet. She was also using her purse like an ipad and told her daughter that her manual was broken when describing her symptoms. Daughter is unsure of witnessed last known normal, believes it was likely some time yesterday by staff as she lives independently at an assisted living facility. She reportedly told EMS that her left face felt numb, she denies numbness now. Of note, she did have some diarrhea last week, otherwise no recent illnesses. Daughter does not believe she is on blood thinners. Related Data Home Medications Medication Instructions Recorded Confirmed aspirin 81 mg tablet,delayed 81 mg PO DAILY 04/24/22 07/11/23 release calcium carbonate 600 mg-vitamin 2 tablet PO DAILY 04/24/22 07/11/23 D3 5 mcg (200 unit) tablet polyethylene glycol 3350 17 17 g PO DAILY PRN Constipation 04/24/22 07/11/23 gram/dose oral powder (Miralax) vitamin B complex 1 tablet PO DAILY 04/24/22 07/11/23 acetaminophen 325 mg tablet 650 mg PO Q8H PRN Pain 11/26/22 07/11/23 (Tylenol) mv-mn-folic 200 mcg-vit K 15 2 cap PO DAILY 11/26/22 07/11/23 mcg-lutein 5 mg-zeaxanthin 1 mg capsule (PreserVision AREDS 2 Plus Multivit) Allergies Allergy/AdvReac Type Severity Reaction Status Date / Time neomycin Allergy Unknown Other Verified 07/11/23 11:02 pregabalin Allergy Unknown Other Verified 07/11/23 11:02 linzess AdvReac Severe diarrhea Uncoded 07/11/23 11:02 Review of Systems Review of Systems: ROS unobtainable: Yes unobtainable due to mental status PMFSH Past Medical History Medical History (Updated 08/02/23 @ 17:42 by Lis Rosado PA-C) Anxiety Benign essential hypertension Cancer of left breast Gastroesophageal reflux disease History of Cutler's palsy Lumbar radiculopathy Lumbar spondylosis Mixed hyperlipidemia Peripheral neuropathy Pre-diabetes Pulmonary nodule Transient ischemic attack Vascular malformation Surgical History Surgical History History of appendectomy History of cataract extraction History of left knee replacement History of left mastectomy Family History Family History Father Carcinoma of colon Mother No problems noted. Sibling Neuropathy Brain tumor Other Malignant neoplasm of prostate Social History Social History Social History: Surrogate medical decision maker: Nate Fabian, son. Code status: Full code. Smoking status: Never smoker Second hand tobacco smoke exposure: Yes Alcohol intake: current Drinks per week: 1 Substance use: never Substance use type: does not use Lack of Transportation: No Lack of Food: Never True Current Housing: I Have Housing Concerned About Future Housing: No Difficulty Paying Gas/Electric Bills: No Difficulty Paying for Meds: No Currently Unemployed: No Education: High School Diploma/GED Difficulty w/ Childcare or Family Care: No Living arrangements: alone Additional living arrangements comments: Independent living at [facility]. 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 Spiritual care concerns: No Exam Narrative: GENERAL: Well-appearing, well-nourished, and in no acute distress. HEAD: Normocephalic, atraumatic. EYES: PERRLA and
[2023-08-02 16:16] LABS: Troponin I < 0.012 ng/mL (0.000-0.034)
[2023-08-02] MEDS: SODIUM CHLORIDE 0.9% IV 1,000 ML 999 ML IV CONT (17:02)
[2023-08-02 17:19] LABS: Influenza A QL RT-PCR Negative (Negative); Influenza B QL RT-PCR Negative (Negative); RSV RNA, RT-PCR Negative (Negative); SARS-CoV-2 RNA PCR Negative (Negative)
[2023-08-02 17:23] LABS: Appearance Urine Clear (Clear); Bacteria Urine None Seen /hpf; Bilirubin Urine Negative (Negative); Blood Urine 2+ (Negative); Color Urine Yellow (Yellow); Glucose Urine UA Negative (Negative); Ketones Urine 2+ mg/dL (Negative); Leukocyte Esterase Ur 1+ LEU/UL (Negative); Need Manual Microscopic Reviewed; Nitrate Urine Negative (Negative); Non Pathogenic Casts 0-2; Protein Urine 1+ mg/dL (Negative); Squamous Epithelial Cell Urine Occasional /hpf (Few); Urobilinogen Urine 0.2 mg/dL (<2.0); WBC Urine 51-100 /hpf
[2023-08-02 17:38] LABS: Add Urine Microscopic? YES; Specific Grav Ur 1.039 (1.001-1.035)
--- NOTE | 2023-08-02 17:40 | PM.IMHP ---
H&P: HPI History of Present Illness Date/Time: 08/02/23 20:15 Chief Complaint: Confusion. Narrative: This is an 87-year-old female with hypertension, hyperlipidemia, and GERD who presented to the emergency department for evaluation of confusion. She remains confused and is not an accurate historian and thus a majority the following is obtained via a review of her EMR as well as information provided by her daughter. Daughter went to visit the patient this morning and she found the patient wearing her clothes backwards with shoes on the wrong feet. She was noted to be using her pursed as a laptop and told her daughter that she was working on something because ?her manual was broken.? Daughter called 911 and on EMS arrival she reportedly told them that the left side of her face felt numb. It is noted that she was previously admitted with left face paresthesias in November 2022 at which time her workup was really unremarkable. The patient is very independent and this confusion is extraordinarily unusual behavior for her. Her last known normal was about 16:00 yesterday. She has not had any recent illnesses though daughter reports she had diarrhea last week. No reports of recent changes in medications. No evidence of recent fall. At the time my evaluation the patient has no complaints though she remains quite confused. She is aware that she is in the hospital but does not remember why she was brought here today. She denies headache, visual changes, focal weakness, paresthesias, chest pain, slurred speech, difficulty swallowing, chest pain, and palpitations. In the ED: She was afebrile on arrival. Blood pressures have been running in the 160s to 180s systolic. Heart rate has been in the low 100s, in a sinus tachycardia. Labs were pretty unremarkable with the only outliers being a sodium of 131, carbon dioxide 31, BUN 19. Urine specific gravity was elevated with 1+ protein, 2+ ketones, 2+ blood, 1+ leukocyte esterase, 11 to 20 RBC, 51 to 100 WBC, and occasional squamous cells. No bacteria were noted. She was negative for influenza, RSV, and COVID. CTA of the head and neck showed no acute findings but was a bit limited due to motion artifact. Review of Systems Review of Systems: Twelve systems were reviewed and are negative except for as per HPI. [facility] Past Medical History Medical History (Updated 08/02/23 @ 17:54 by Lis Rosado PA-C) Anxiety Benign essential hypertension Cancer of left breast Gastroesophageal reflux disease History of Cutler's palsy Lumbar radiculopathy Lumbar spondylosis Mixed hyperlipidemia Peripheral neuropathy Pre-diabetes Pulmonary nodule Transient ischemic attack Vascular malformation Surgical History Surgical History History of appendectomy History of cataract extraction History of left knee replacement History of left mastectomy Family History Family History Father Carcinoma of colon Mother No problems noted. Sibling Neuropathy Brain tumor Other Malignant neoplasm of prostate Social History Social History Social History: Surrogate medical decision maker: Nate Fabian, son. Code status: Full code. Smoking status: Never smoker Second hand tobacco smoke exposure: Yes Alcohol intake: current Drinks per week: 1 Substance use: never Substance use type: does not use Do You Feel Safe in your Home?: Yes Lack of Transportation: No Lack of Food: Never True Current Housing: I Have Housing Concerned About Future Housing: No Difficulty Paying Gas/Electric Bills: No Difficulty Paying for Meds: No Currently Unemployed: No Education: High School Diploma/GED Difficulty w/ Childcare or Family Care: No Living arrangements: alone Additional living arrangements comments:
[2023-08-02 18:24] LABS: Ammonia < 9 umol/L (9-30)
[2023-08-02 18:33] LABS: Amphetamine Screen Urine Negative (Negative); Barbiturate Screen Urine Negative (Negative); Benzodiazepines Screen Urine Negative (Negative); Cannabinoid Screen Urine Negative (Negative); Cocaine Screen Urine Negative (Negative); Methadone Screen Urine Negative (Negative); Opiate Screen Urine Negative (Negative); Phencyclidine Screen Urine Negative (Negative)
--- NOTE | 2023-08-02 18:55 | ADMGEN ---
This patient, Patricia Fabian, was admitted to Medical Room 250-01. Patient/family oriented to hospital policies and general routines including ID bracelet, bed and alarms, visiting hours, pain management, procedures, bathroom and other care routines, personal items, smoking policy, room service/diet, and visiting hours. Information on how to activate the Rapid Response Team has been discussed. Patient/Family are encouraged to report perceived risks to care and to ask questions if they do not understand what they are told or what they should do.
--- NOTE | 2023-08-02 19:51 | PC.NURSE ---
Pt unable to answer questions due to confusion, Nate son answered questions to his knowledge and recalled information from previous visit
--- NOTE | 2023-08-02 19:58 | PC.NURSE ---
Verified meds with external records unable to verify OTC medication.
[2023-08-03] VITALS (9 sets, daily range): BP systolic 136–169; BP diastolic 56–61; PULSE 74–99; RESP 14–18; TEMP 36.5–37.1; O2SAT 96–97
--- NOTE | 2023-08-03 | ECHO_ITS ---
Patient Info Name: Patricia Fabian Age: 88 years : 1935 Gender: Female Ht: 62 in Wt: 130 lbs BSA: 1.62 m2 HR: 81 bpm BP: 160 / 61 mmHg Heart Rhythm: Sinus Rhythm Technical Quality: Good Exam Date: 08/03/2023 10:32 AM Exam Location: Echo Lab Patient Status: Inpatient Admit Date: 08/02/2023 Staff Ordering Physician: Hema Talley APRN Routing Clerk: Ricky Chavis RDCS Attending Provider: Sade Tello MD Referring Physician: Mayank BOWER; Exam Type: CA echo doppler w bubble study Study Info Indications - confusion Complete two-dimensional, color flow and Doppler transthoracic echocardiogram is performed with agitated saline. Summary 1. Mild left ventricular hypertrophy with hyperdynamic systolic function and grade 1 diastolic noncompliance. 2. Mild sclerosis of the aortic valve with well maintained leaflet excursion. 3. Trivial amount of mitral regurgitation. 4. Agitated saline contrast injection demonstrates no shunt. 5. Echocardiogram done in this laboratory in November of 2022 demonstrated identical findings. Left Ventricle Left ventricular chamber dimension is normal. Left ventricular systolic function is hyperdynamic, estimated at >70%. There is mild concentric increased left ventricular wall thickness. The left ventricular diastolic function is grade I diastolic dysfunction. Right Ventricle Right ventricular chamber dimension is normal. Left Atria Left atrial chamber dimension is normal. Right Atria Right atrial chamber dimension is normal. Atrial Septum Intact interatrial septum visualized by agitated saline imaging. Aortic Valve The aortic valve is trileaflet. There is mild aortic valve sclerosis. Pulmonic Valve The pulmonic valve is normal. Mitral Valve The mitral valve has normal leaflets. There is trace mitral valve regurgitation. The mitral valve annulus is mildly calcified. Tricuspid Valve The tricuspid valve leaflets are normal. Pericardium/Pleural The pericardium appears normal. Aorta The aortic root size at the sinus of Valsalva is normal. Left Ventricular Outflow Tract Name Value Normal LVOT 2D LVOT Diameter 1.8 cm LVOT Doppler LVOT Peak Gradient 12 mmHg LVOT Mean Gradient 9 mmHg LVOT VTI 34 cm LVOT VTI/AV VTI Ratio 1.0 LVOT Stroke Volume 84 ml LVOT CO 6.4 l/min LVOT CI 4.0 l/min/m2 Pulmonic Valve Name Value Normal RVOT Doppler RVOT Peak Gradient 4 mmHg PV Doppler PV Peak Gradient 3 mmHg Mitral Valve Name Value Normal
[2023-08-03 05:50] LABS: Basophils Percent Auto 0.4 % (0.2-1.2); Eosinophils Percent Auto 0.3 % (0-4.4); Hematocrit 41.6 % (37.0-47.0); Hemoglobin 13.6 g/dL (12.0-15.0); Immature Granulocyte Absolute 0.01 K/mm3 (0.00-0.031); Immature Granulocyte Percent A 0.1 % (0-0.5); Lymphocytes Absolute Auto 1.27 K/mm3 (0.9-3.2); Lymphocytes Percent Auto 16.6 % (18.3-44.2); Mean Corpuscular HGB Conc 32.7 g/dl (32-36); Mean Corpuscular Hemoglobin 30.9 pg (26-34); Mean Corpuscular Volume 94.5 fl (80-100); Mean Platelet Volume 9.3 fl (7.4-10.4); Monocytes Absolute Auto 0.9 K/mm3 (0.1-0.6); Monocytes Percent Auto 11.4 % (2.6-8.5); Neutrophils Absolute Auto 5.5 K/mm3 (1.3-6.7); Neutrophils Percent Auto 71.2 % (45.5-73.1); Platelet Count Result 288 k/mm3 (150-375); White Blood Count 7.7 K/mm3 (4.5-10.0)
[2023-08-03 05:51] LABS: Anion Gap 5 mmol/L (8-16); Blood Urea Nitrogen 16 mg/dL (7-17); Calcium 9.5 mg/dL (8.4-10.2); Carbon Dioxide 28 mmol/L (22-30); Chloride 100 mmol/L (98-107); Cholesterol 183 mg/dL (0-200); Estimated CRCL calculation 41 ml/min; Estimated Glomerular Filt Rate > 60; Glucose 98 mg/dL (65-110); HDL Direct 85 mg/dL; Potassium 3.8 mmol/L (3.4-5.0); Sodium 133 mmol/L (137-145); Triglycerides 55 mg/dL (<150)
[2023-08-03 06:02] LABS: LDL Cholesterol Direct 76 mg/dL
[2023-08-03] MEDS: PRAVASTATIN SODIUM 20 MG TABLET 40 MG PO (08:22)
[2023-08-03] MEDS: ASPIRIN 81 MG CHEWABLE TABLET PO (08:22)
[2023-08-03] MEDS: ACETAMINOPHEN 325 MG TABLET 650 MG PO (08:36)
--- NOTE | 2023-08-03 09:33 | WPDNEURCNPN ---
Assessment and Plan Assessment and plan (1) Confusion: Code(s): R41.0 - Disorientation, unspecified Status: Acute (2) Abnormal urinalysis: Code(s): R82.90 - Unspecified abnormal findings in urine Status: Acute (3) Numbness and tingling of left side of face: Code(s): R20.0 - Anesthesia of skin; R20.2 - Paresthesia of skin Status: Acute Plan Patricia Fabian is a 88 year old female with a history of prior L thalamic stroke, HTN, breast cancer, GERD, lumbar spondylosis, HLD, prediabetes presenting for evaluation of L facial numbness and confusion. She was found to have a UTI, which likely explains the change in mental status. Etiology of recurrent L facial numbness is unclear. She has had several episodes over the past few years, with multiple MRI's that have been negative. The old left thalamic stroke would not explain the symptoms as that would cause R facial numbness. CTA brain/carotid from November 2022 did not show any significant vessel disease on the R side that would explain her symptoms either. Could be dysfunction of trigeminal nerve. She denies any pain that would suggest trigeminal neuralgia. - Obtain MRI brain with and without contrast - Obtain MRA brain for evaluation of neurovascular compression of trigeminal nerve - CTA of the carotid arteries - Increase statin dose, goal LDL should be less than 70 given the old stroke - Check HgA1c Consult date: 08/03/23 Reason for consult: Altered mental status, L facial numbness HPI: Patricia Fabian is a 88 year old female with a history of prior L thalamic stroke, HTN, breast cancer, GERD, lumbar spondylosis, HLD, prediabetes presenting for evaluation of L facial numbness and confusion. Patient was brought in after daughter noted that patient was wearing her clothes backwards and shoes on the wrong feet. She was using her purse as a laptop. Daughter called EMS, and at that time, patient told them that the left side of her face felt numb. Patient previously had an episode of L facial paraesthesias in November 2022 -- she had a negative MRI brain, CTA brain/carotid, and negative shunt on bubble study. Patient is independent at baseline and confusion is very unusual for her. She did have diarrhea the week prior. In the ED she was afebrile. Her BP was in the 160-180s systolic. EKG showed sinus rhythm. Her sodium was slightly low at 131. Her UA was concerning for UTI. CT head showed chronic L lacunar infarct in the L thalamus. CTA brain/carotid had movement artifact so that carotids were not well-visualized, but did not bilateral vertebral and bilateral carotid siphon plaque formation. Her LDL is 76 from this admission. She takes a baby aspirin and pravastatin 20mg daily. She lives at [facility]. B12 level is normal. Patient has had episodes of intermittent paraesthesias on the L side of her face for years, and has also on occasion noted some drooping of the L side of her mouth. She has never had any alteration in consciousness of LOC with these episodes. They usually last a few days and then go away on their own. It happens a few times per month. There are no triggers. No stabbling pain. At one point her PCP thought maybe she had Cutler's Palsy. She had an MRI brain done in July 2022 that only showed nonspecific cerebral white matter disease but no other changes. Review of Systems Review of Systems: All systems reviewed & are unremarkable except as noted in HPI and below PMFSH Past Medical History Medical History Anxiety Benign essential hypertension Cancer of left breast Gastroesophageal reflux disease History of Cutler's palsy Lumbar radiculopathy Lumbar spondylosis Mixed hyperlipidemia Peripheral neuropathy Pre-diabetes Pulmonary nodule Transient ischemic attack Vascular malformation Surgical History Surgical History History of appendectomy His
--- NOTE | 2023-08-03 10:31 | PM.IMPN ---
Progress Note: A&P Assessment and Plan (1) Confusion: Code(s): R41.0 - Disorientation, unspecified Status: Acute Assessment and Plan: Patient is back to baseline mental status. Possibly related to encephalopathy from urine infection verses acute neurologic event. Neurology is consulted. (2) Abnormal urinalysis: Code(s): R82.90 - Unspecified abnormal findings in urine Status: Acute Assessment and Plan: UA suspicious for urinary tract infection. Started on ceftriaxone now completely oriented. Continue ceftriaxone pending urine culture. (3) Benign essential hypertension: Code(s): I10 - Essential (primary) hypertension Status: Acute Assessment and Plan: Continue home antihypertensives (4) Mixed hyperlipidemia: Code(s): E78.2 - Mixed hyperlipidemia Status: Acute Assessment and Plan: Lipid panel indicates slightly elevated LDL, increase pravastatin to 40 mg daily (5) Peripheral neuropathy: Qualifiers: Peripheral neuropathy type: polyneuropathy, unspecified Qualified Code(s): G62.9 - Polyneuropathy, unspecified Code(s): G62.9 - Polyneuropathy, unspecified Status: Acute Assessment and Plan: Stable, continue home medications Time Spent With Patient Time with patient: 25 - 35 minutes Subjective Date/time seen: 08/03/23 10:31 Interval history: This is an 88-year-old female patient admitted to the hospital due to altered mental status for and confusion. Patient has evidence of urinary tract infection and was started on Rocephin which has been continued. This morning she is back to baseline mental status completely normal. Patient is very alert and oriented. She lives at independent living at [facility]. Neurology is consulting for possible TIA. Patient reports that yesterday she had some left-sided cheek paresthesia but she states that this has been ongoing for several years and comes and goes. Patient reports that her last known well was actually yesterday morning and she started feeling bad after breakfast, around 10:00 am. Review of Systems Review of Systems: All systems reviewed & are unremarkable except as noted in HPI and below Exam Narrative: GENERAL: Well-appearing, well-nourished, and in no acute distress. Appears younger than stated age. HEAD: Normocephalic, atraumatic. ENT:? Mucous membranes moist. CHEST: Clear to auscultation.? No respiratory distress. HEART: Regular rate and rhythm. ? Normal peripheral pulses. ABDOMEN: Soft, nontender, nondistended. EXTREMITIES: Normal range of motion. No peripheral edema. SKIN: Warm dry normal color NEURO: Alert and oriented x3. PSYCH: Normal mood and affect Objective Data Vital Signs Vital Signs: Vital Signs - 24 hr 08/02/23 11:19 08/02/23 15:01 08/02/23 15:31 Temperature 36.4 C 36.7 C Pulse Rate 90 112 H Respiratory Rate 16 16 Blood Pressure 159/76 H 186/94 H 169/87 H Pulse Oximetry 97 98 Oxygen Delivery Room Air 08/02/23 16:13 08/02/23 12:00 08/02/23 13:00 Temperature 36.6 C 36.6 C 36.6 C Pulse Rate 110 H 112 H 112 H Respiratory Rate 19 18 18 Blood Pressure 180/82 H 176/78 H 182/80 H Pulse Oximetry 98 96 97 Oxygen Delivery 08/02/23 14:00 08/02/23 16:16 08/02/23 16:46 Temperature 36.6 C 36.6 C Pulse Rate 108 H 108 H 102 H Respiratory Rate 16 17 18 Blood Pressure 178/90 H 166/82 H 168/80 H Pulse Oximetry 98 98 97 Oxygen Delivery 08/02/23 17:31 08/02/23 17:46 08/02/23 18:01 Temperature 36.3 C L 37.1 C Pulse Rate 104 H 103 H 107 H Respiratory Rate 18 19 16 Blood Pressure 156/70 H 151/63 H 152/79 H Pulse Oximetry 97 96 Oxygen Delivery 08/02/23 19:28 08/02/23 19:38 08/03/23 06:17 Temperature 36.8 C 36.5 C Pulse Rate 94 91 81 Respiratory Rate 14 16 Blood Pressure 154/74 H 169/61 H Pulse Oximetry 97 97 Oxygen Delivery 08/02/23 20:00 08/02/23 20:00 08/03/23 00:00 Temperature Pu
[2023-08-03] MEDS: SODIUM CHLORIDE 0.9% IV 1,000 ML 150 ML IV CONT (11:26)
--- NOTE | 2023-08-03 12:20 | PC.NURSE ---
Patient taken down to MRI/CT
[2023-08-03 13:26] LABS: Hemoglobin A1C 5.7 % (<5.7)
--- NOTE | 2023-08-03 15:16 | PC.NURSE ---
Student, Rick Britt, charted assessment under financial writer. Assembler Dc Field Ring reviewed and agrees with all assessment findings.
[2023-08-04 05:56] LABS: Basophils Percent Auto 0.7 % (0.2-1.2); Eosinophils Absolute Auto 0.1 K/mm3 (0-0.3); Eosinophils Percent Auto 1.7 % (0-4.4); Hematocrit 39.4 % (37.0-47.0); Hemoglobin 12.8 g/dL (12.0-15.0); Immature Granulocyte Absolute 0.01 K/mm3 (0.00-0.031); Immature Granulocyte Percent A 0.2 % (0-0.5); Lymphocytes Absolute Auto 1.17 K/mm3 (0.9-3.2); Lymphocytes Percent Auto 19.6 % (18.3-44.2); Mean Corpuscular HGB Conc 32.5 g/dl (32-36); Mean Corpuscular Hemoglobin 30.7 pg (26-34); Mean Corpuscular Volume 94.5 fl (80-100); Mean Platelet Volume 9.4 fl (7.4-10.4); Monocytes Absolute Auto 0.6 K/mm3 (0.1-0.6); Monocytes Percent Auto 10.2 % (2.6-8.5); Neutrophils Absolute Auto 4.1 K/mm3 (1.3-6.7); Neutrophils Percent Auto 67.6 % (45.5-73.1); Platelet Count Result 254 k/mm3 (150-375); Red Blood Count 4.17 M/mm3 (4.2-5.4); Red Cell Distribution Width 12.2 % (11.5-14.5)
[2023-08-04 06:00] VITALS: BP 158/72; PULSE 79; RESP 18; TEMP 36.6; O2SAT 95
[2023-08-04 06:15] LABS: Alanine Aminotransferase 17 U/L (6-35); Albumin Level 3.6 g/dL (3.5-5.1); Alkaline Phosphatase 55 U/L (38-126); Anion Gap 4 mmol/L (8-16); Aspartate Amino Transferase 24 U/L (14-36); Bilirubin,Total 0.8 mg/dL (0.2-1.3); Blood Urea Nitrogen 18 mg/dL (7-17); Calcium 9.1 mg/dL (8.4-10.2); Carbon Dioxide 26 mmol/L (22-30); Chloride 104 mmol/L (98-107); Estimated CRCL calculation 40 ml/min; Estimated Glomerular Filt Rate > 60; Glucose 101 mg/dL (65-110); Potassium 3.5 mmol/L (3.4-5.0); Sodium 134 mmol/L (137-145)
--- NOTE | 2023-08-04 07:08 | PM.DS ---
DS: Admitting Diagnosis Discharge Date 08/04/2023 Admitting Diagnosis Confusion, abnormal urinalysis, benign essential hypertension, mixed hyperlipidemia, peripheral neuropathy DS: Discharge Diagnosis Discharge Diagnosis (1) Confusion: Code(s): R41.0 - Disorientation, unspecified Status: Acute (2) Abnormal urinalysis: Code(s): R82.90 - Unspecified abnormal findings in urine Status: Acute (3) Benign essential hypertension: Code(s): I10 - Essential (primary) hypertension Status: Acute (4) Mixed hyperlipidemia: Code(s): E78.2 - Mixed hyperlipidemia Status: Acute (5) Peripheral neuropathy: Qualifiers: Peripheral neuropathy type: polyneuropathy, unspecified Qualified Code(s): G62.9 - Polyneuropathy, unspecified Code(s): G62.9 - Polyneuropathy, unspecified Status: Acute DS: Summary Hospital Course Hospital Course: This is an 88-year-old female patient who was admitted to the hospital for severe alteration in mental status. She underwent stroke workup without any specific findings except old infarct. Her lipid panel was not optimized so we increased her pravastatin dose. She is on aspirin daily now. She received IV fluids and IV antibiotics with drastic improvement in mental status. Urine culture was negative but patient improved so much on antibiotics that we will continue to treat with Keflex on discharge. Status at Discharge Cognitive/behavioral status at discharge: Awake alert oriented and very pleasant Functional status at discharge: uses cane/walker Overall status at discharge: patient is back to baseline Time Spent with Patient Time attestation: Total time spent providing and/or coordinating discharge services: 35 minutes Time spent: Greater than 30 minutes Exam Narrative: GENERAL: Well-appearing, well-nourished, and in no acute distress. Appears younger than stated age. HEAD: Normocephalic, atraumatic. ENT:? Mucous membranes moist. CHEST: Clear to auscultation.? No respiratory distress. HEART: Regular rate and rhythm. ? Normal peripheral pulses. ABDOMEN: Soft, nontender, nondistended. EXTREMITIES: Normal range of motion. No peripheral edema. SKIN: Warm dry normal color NEURO: Alert and oriented x3. PSYCH: Normal mood and affect DS: Data Data Completed and Pending Completed studies during hospitalization: CT head, CTA head neck, brain MRI, brain MRA, abdomen pelvis CT noncontrast and CTA of the neck repeat imaging Labs on day of discharge: Labs from last 24 hours 08/04/23 08/03/23 05:16 05:14 WBC 6.0 RBC 4.17 L Hgb 12.8 Hct 39.4 MCV 94.5 MCH 30.7 MCHC 32.5 RDW 12.2 Plt Count 254 MPV 9.4 Immature Gran % (Auto) 0.2 Neut % (Auto) 67.6 Lymph % (Auto) 19.6 Camp % (Auto) 10.2 H Eos % (Auto) 1.7 Baso % (Auto) 0.7 Lymph # (Auto) 1.17 Camp # (Auto) 0.6 Eos # (Auto) 0.1 Baso # (Auto) 0.0 Abs Immat Gran (auto) 0.01 Absolute Neuts (auto) 4.1 Absolute Nucleated RBC 0.0 Nucleated RBC % 0.0 Sodium 134 L Potassium 3.5 Chloride 104 Carbon Dioxide 26 Anion Gap 4 L BUN 18 H Creatinine 0.70 Estim Creat Clear Calc 40 Estimated GFR > 60 Glucose 101 Hemoglobin A1c 5.7 Calcium 9.1 Magnesium 2.0 Total Bilirubin 0.8 AST 24 ALT 17 Alkaline Phosphatase 55 Total Protein 6.0 L Albumin 3.6 Imaging Radiologist's impression: Exam Type: ? ? CA echo doppler w bubble study Study Info Indications ?? ? - confusion Complete two-dimensional, color flow and Doppler transthoracic echocardiogram is performed with agitated saline. Account #: ? ? [id number] Summary ? 1. Mild left ventricular hypertrophy with hyperdynamic systolic function and grade 1 diastolic noncompliance. ? 2. Mild sclerosis of the aortic valve with well maintained leaflet excursion. ? 3. Trivial amount of mitral regurgitation. ? 4. Agitated saline contr
[2023-08-04] MEDS: ASPIRIN 81 MG CHEWABLE TABLET PO (08:12)
[2023-08-04] MEDS: PRAVASTATIN SODIUM 20 MG TABLET 40 MG PO (08:25)
[2023-08-04] MEDS: LOSARTAN POTASSIUM 25 MG TABLET PO (10:24)
[2023-08-04] MEDS: amLODIPine BESYLATE 5 MG TABLET 10 MG PO (10:24)
== END 2023-08-04 14:10 | DRG 690 ==
LOC: ANHED 17:47 → ANH3MEDSUR 18:08 → ANH2MED 18:27
PROVIDERS: Emergency Medicine; Physician Assistant; Admitting Provider Hospitalist; Emergency Provider Student in an Organized Health Care Education/Training Program; PCP Family Medicine; Visit Provider Nurse Practitioner
DX: N39.0 Urinary tract infection, site not specified (principal); I10 Essential (primary) hypertension; K21.9 Gastro-esophageal reflux disease without esophagitis; E78.2 Mixed hyperlipidemia; G62.9 Polyneuropathy, unspecified; M47.26 Other spondylosis with radiculopathy, lumbar region; R41.0 Disorientation, unspecified; R73.03 Prediabetes; R91.1 Solitary pulmonary nodule; F41.9 Anxiety disorder, unspecified; Z20.822 Contact with and (suspected) exposure to COVID-19; Z96.652 Presence of left artificial knee joint; Z79.82 Long term (current) use of aspirin; Z86.73 Personal history of transient ischemic attack (TIA), and cerebral infarction without residual deficits; Z85.3 Personal history of malignant neoplasm of breast
CPT/HCPCS: 36415; 70450; 70496; 70498; 70544; 70551; 74176; 80048; 80053; 80061; 80307; 81001; 82140; 82607; 83036; 83735; 84443; 84484; 85025; 85610; 85730; 87040; 87086; 87637; 93005; 93306; 96361; 96365; 96375; 97161; 99285; A9270; G0378; J0696; J7030; Q9967

== ENCOUNTER 2023-08-17 14:38 | Emergency (ER) | payer MEDICARE, BC, SELFPAY ==
[2023-08-17 14:41] VITALS: BP 149/62; PULSE 98; RESP 17; TEMP 36.9; O2SAT 96
[2023-08-17 15:23] LABS: Basophils Percent Auto 0.5 % (0.2-1.2); Eosinophils Percent Auto 0.5 % (0-4.4); Hemoglobin 12.6 g/dL (12.0-15.0); Immature Granulocyte Absolute 0.02 K/mm3 (0.00-0.031); Immature Granulocyte Percent A 0.2 % (0-0.5); Lymphocytes Absolute Auto 1.49 K/mm3 (0.9-3.2); Lymphocytes Percent Auto 17.9 % (18.3-44.2); Mean Corpuscular HGB Conc 33.2 g/dl (32-36); Mean Corpuscular Hemoglobin 31.2 pg (26-34); Mean Corpuscular Volume 94.1 fl (80-100); Mean Platelet Volume 8.8 fl (7.4-10.4); Monocytes Absolute Auto 0.7 K/mm3 (0.1-0.6); Monocytes Percent Auto 8.6 % (2.6-8.5); Neutrophils Percent Auto 72.3 % (45.5-73.1); Platelet Count Result 313 k/mm3 (150-375); Red Blood Count 4.04 M/mm3 (4.2-5.4); Red Cell Distribution Width 12.1 % (11.5-14.5); White Blood Count 8.3 K/mm3 (4.5-10.0)
[2023-08-17 15:25] LABS: Appearance Urine Clear (Clear); Bilirubin Urine Negative (Negative); Blood Urine Negative (Negative); Color Urine Dark Yellow (Yellow); Glucose Urine UA Negative (Negative); Ketones Urine Negative (Negative); Leukocyte Esterase Ur Negative LEU/UL (Negative); Nitrate Urine Negative (Negative); Protein Urine Negative (Negative); Specific Grav Ur 1.021 (1.001-1.035); pH Urine 5.5 (5.0-9.0)
[2023-08-17 15:26] LABS: Add Urine Microscopic? NO
[2023-08-17 15:34] LABS: INR 0.9; Partial Thromboplastin Time 23.2 SECONDS (22.3-36.8); Prothrombin Time 12.4 Seconds (11.1-14.7)
[2023-08-17 15:38] LABS: Lactic Acid Reflex 2.2 mmol/L (0.7-2.0)
[2023-08-17 15:39] LABS: Alanine Aminotransferase 21 U/L (6-35); Albumin Level 3.9 g/dL (3.5-5.1); Alkaline Phosphatase 57 U/L (38-126); Anion Gap 5 mmol/L (8-16); Aspartate Amino Transferase 28 U/L (14-36); Bilirubin,Total 0.4 mg/dL (0.2-1.3); Blood Urea Nitrogen 21 mg/dL (7-17); Calcium 9.3 mg/dL (8.4-10.2); Carbon Dioxide 27 mmol/L (22-30); Chloride 97 mmol/L (98-107); Estimated CRCL calculation 38 ml/min; Estimated Glomerular Filt Rate > 60; Glucose 126 mg/dL (65-110); Potassium 4.1 mmol/L (3.4-5.0); Sodium 129 mmol/L (137-145)
[2023-08-17 15:58] LABS: Influenza A QL RT-PCR Negative (Negative); Influenza B QL RT-PCR Negative (Negative); RSV RNA, RT-PCR Negative (Negative); SARS-CoV-2 RNA PCR Negative (Negative)
--- NOTE | 2023-08-17 16:44 | ED.GENADULT ---
HPI - General Adult General Chief complaint: Urogenital-Female Stated complaint: UTI like [id number] [id number] Time Seen by Provider: 08/17/23 14:53 History of Present Illness HPI narrative: 88-year-old female presenting to the emergency department for evaluation of intermittent abdominal pain. Patient had a recent urinary tract infection and was admitted. Patient was discharged approximately 2 weeks ago. Patient states that she began to have some various lower abdominal pains. Related Data Home Medications Medication Instructions Recorded Confirmed aspirin 81 mg tablet,delayed 81 mg PO DAILY 04/24/22 07/11/23 release calcium carbonate 600 mg-vitamin 2 tablet PO DAILY 04/24/22 07/11/23 D3 5 mcg (200 unit) tablet polyethylene glycol 3350 17 17 g PO DAILY PRN Constipation 04/24/22 07/11/23 gram/dose oral powder (Miralax) vitamin B complex 1 tablet PO DAILY 04/24/22 07/11/23 acetaminophen 325 mg tablet 650 mg PO Q8H PRN Pain 11/26/22 07/11/23 (Tylenol) mv-mn-folic 200 mcg-vit K 15 2 cap PO DAILY 11/26/22 07/11/23 mcg-lutein 5 mg-zeaxanthin 1 mg capsule (PreserVision AREDS 2 Plus Multivit) vibegron 75 mg tablet (Gemtesa) 75 mg PO DAILY 08/02/23 08/02/23 Allergies Allergy/AdvReac Type Severity Reaction Status Date / Time neomycin Allergy Unknown Other Verified 08/17/23 14:41 pregabalin Allergy Unknown Other Verified 08/17/23 14:41 linzess AdvReac Severe diarrhea Uncoded 07/11/23 11:02 Review of Systems Review of Systems: All systems reviewed & are unremarkable except as noted in HPI and below PMFSH Past Medical History Medical History Anxiety Benign essential hypertension Cancer of left breast Gastroesophageal reflux disease History of Cutler's palsy Lumbar radiculopathy Lumbar spondylosis Mixed hyperlipidemia Peripheral neuropathy Pre-diabetes Pulmonary nodule Transient ischemic attack Vascular malformation Surgical History Surgical History History of appendectomy History of cataract extraction History of left knee replacement History of left mastectomy Family History Family History Father Carcinoma of colon Mother No problems noted. Sibling Neuropathy Brain tumor Other Malignant neoplasm of prostate Social History Social History Social History: Surrogate medical decision maker: Nate Fabian, son. Code status: Full code. Smoking status: Never smoker Second hand tobacco smoke exposure: Yes Alcohol intake: current Drinks per week: 1 Substance use: never Substance use type: does not use Do You Feel Safe in your Home?: Yes Lack of Transportation: No Lack of Food: Never True Current Housing: I Have Housing Concerned About Future Housing: No Difficulty Paying Gas/Electric Bills: No Difficulty Paying for Meds: No Currently Unemployed: No Education: High School Diploma/GED Difficulty w/ Childcare or Family Care: No Living arrangements: alone Additional living arrangements comments: Independent living at [facility]. 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 Spiritual care concerns: No Exam Narrative: APPEARANCE: Well appearing, no pain, no distress, well-nourished. HEAD: normocephalic, atraumatic. EYES: PERRLA/EOMI, conjunctivae clear. NOSE: Normal no drainage EARS:TMS clear with good light reflex. THROAT: Pharynx clear, no exudate. NECK: Supple. No adenopathy, no masses. RESPIRATORY: Airway patent, respirations nonlabored. Clear to auscultation bilaterally, no rales, rhonchi, wheezing. CARDIOVASCULAR: Regular rate and rhythm without murmurs rubs or gallops. ABDOMINAL: Soft, nontender, nondistended, normal bowel sound
[2023-08-17 16:51] VITALS: BP 140/84; PULSE 89; RESP 16; O2SAT 99
[2023-08-17 18:20] LABS: Reflex Lactic Acid Yes or No Add Lactic
== END 2023-08-17 16:53 | disposition home or self-care (01) ==
PROVIDERS: Emergency Provider Emergency Medicine; PCP Family Medicine
DX: R10.9 Unspecified abdominal pain (principal); Z20.822 Contact with and (suspected) exposure to COVID-19; I10 Essential (primary) hypertension; E78.2 Mixed hyperlipidemia; R73.03 Prediabetes; G62.9 Polyneuropathy, unspecified; K21.9 Gastro-esophageal reflux disease without esophagitis; Z96.652 Presence of left artificial knee joint; Z85.3 Personal history of malignant neoplasm of breast; Z87.440 Personal history of urinary (tract) infections; Z98.49 Cataract extraction status, unspecified eye; Z90.12 Acquired absence of left breast and nipple; Z79.82 Long term (current) use of aspirin; Z77.22 Contact with and (suspected) exposure to environmental tobacco smoke (acute) (chronic)
CPT/HCPCS: 36415; 80053; 81003; 83605; 85025; 85610; 85730; 87637; 99283

== ENCOUNTER 2023-09-08 10:37 | Emergency (ER) | payer MEDICARE, BC, SELFPAY ==
[2023-09-08 10:48] VITALS: BP 153/60; PULSE 93; RESP 18; TEMP 37.2; O2SAT 97
--- NOTE | 2023-09-08 10:50 | ED.GENADULT ---
HPI - General Adult General Chief complaint: Unspecified Stated complaint: ELEVATED BLOOD PRESSURE Source: patient, RN notes reviewed and old records reviewed Mode of arrival: ambulatory Limitations: no limitations History of Present Illness HPI narrative: 80-year-old female presents to [facility] with complaint of elevated blood pressure and feeling jittery this started on Saturday. Patient states Saturday was blood pressure check at [facility] and her blood pressure was 148/68. Patient states checked today and it was 150\70 patient denies any other symptoms. Patient denies chest pain, shortness of breath, recent illness. Related Data Home Medications Medication Instructions Recorded Confirmed aspirin 81 mg tablet,delayed 81 mg PO DAILY 04/24/22 09/08/23 release calcium carbonate 600 mg-vitamin 2 tablet PO DAILY 04/24/22 09/08/23 D3 5 mcg (200 unit) tablet polyethylene glycol 3350 17 17 g PO DAILY PRN Constipation 04/24/22 09/08/23 gram/dose oral powder (Miralax) vitamin B complex 1 tablet PO DAILY 04/24/22 09/08/23 acetaminophen 325 mg tablet 650 mg PO Q8H PRN Pain 11/26/22 09/08/23 (Tylenol) mv-mn-folic 200 mcg-vit K 15 2 cap PO DAILY 11/26/22 09/08/23 mcg-lutein 5 mg-zeaxanthin 1 mg capsule (PreserVision AREDS 2 Plus Multivit) Allergies Allergy/AdvReac Type Severity Reaction Status Date / Time neomycin Allergy Unknown Other Verified 09/08/23 10:52 pregabalin Allergy Unknown Other Verified 09/08/23 10:52 vibegron [From Gemtesa] AdvReac Other Verified 09/08/23 11:02 linzess AdvReac Severe diarrhea Uncoded 08/19/23 16:26 Review of Systems Constitutional: Constitutional: Reports no additional constitutional complaints, Denies body ache(s), Denies chills, Denies fatigue, Denies fever(s) and Denies headache(s) Comments: Feeling jittery Eyes: Eyes: Reports no additional eye complaints and Denies blurry vision ENT: Reports system reviewed and no additional complaints, except as documented, Denies vertigo, Denies dizziness, Denies ear discharge, Denies otalgia, Denies facial pain, Denies headache(s), Denies nasal congestion, Denies nasal discharge, Denies sinus pain, Denies sinus pressure and Denies sore throat Cardiovascular: Cardiovascular: Reports no additional cardiovascular complaints, Denies chest pain, Denies chest pain at rest, Denies rapid heart rate and Denies dyspnea Respiratory: Respiratory: Reports no additional respiratory complaints, Denies chest congestion, Denies cough, Denies pain on inspiration, Denies pain with cough and Denies dyspnea Gastrointestinal: Gastrointestinal: Denies abdominal pain, Denies diarrhea, Denies nausea and Denies vomiting Integumentary/Breasts: Skin/Breast: Denies rash Neurologic: Reports system reviewed and no additional complaints, except as documented, Denies vertigo, Denies dizziness and Denies headache(s) Endocrine: Endocrine: Denies fatigue [facility] Past Medical History Medical History Anxiety Benign essential hypertension Cancer of left breast Confusion Diarrhea Gastroesophageal reflux disease History of Cutler's palsy Lumbar radiculopathy Lumbar spondylosis Mixed hyperlipidemia Peripheral neuropathy Pre-diabetes Pulmonary nodule Transient ischemic attack Vascular malformation Surgical History Surgical History History of appendectomy History of cataract extraction History of left knee replacement History of left mastectomy Family History Family History Father Carcinoma of colon Mother No problems noted. Sibling Neuropathy Brain tumor Other Malignant neoplasm of prostate Social History Social History Social History: Surrogate medical decision maker: Nate Grossman
[2023-09-08 11:08] LABS: Glucose Point of Care 107 mg/dl (65-105)
== END 2023-09-08 11:08 | disposition home or self-care (01) ==
PROVIDERS: Emergency Provider Registered Nurse; PCP Family Medicine
DX: R45.0 Nervousness (principal); I10 Essential (primary) hypertension; K21.9 Gastro-esophageal reflux disease without esophagitis; E78.2 Mixed hyperlipidemia; R73.03 Prediabetes; G62.9 Polyneuropathy, unspecified; Z86.73 Personal history of transient ischemic attack (TIA), and cerebral infarction without residual deficits; Z85.3 Personal history of malignant neoplasm of breast; Z90.12 Acquired absence of left breast and nipple; Z96.652 Presence of left artificial knee joint; Z79.82 Long term (current) use of aspirin; F41.9 Anxiety disorder, unspecified
CPT/HCPCS: 82948; 99212; G0463

== ENCOUNTER 2023-09-25 07:40 | Emergency (ER) | payer MEDICARE, BC, SELFPAY ==
--- NOTE | ~2023-09-25 | XR_ITS ---
Clinical Indication: Cough PA and lateral views of the chest: Comparison: None Findings: The lungs are clear, aside from calcified right upper lobe granuloma, without evidence of f ocal consolidation or pleural effusion. Cardiomediastinal silhouette is within normal limits. Bones and soft tissues are unremarkable. Impression: No significant abnormality. Reviewed, dictated and finalized at [facility]. Impression: No significant abnormality.
[2023-09-25 07:36] VITALS: BP 190/82; PULSE 79; RESP 18; TEMP 36.9; O2SAT 97
[2023-09-25 07:41] VITALS: O2SAT 99
--- NOTE | 2023-09-25 07:56 | ED.GENADULT ---
HPI - General Adult General Chief complaint: Unspecified Stated complaint: anxiety Time Seen by Provider: 09/25/23 07:43 History of Present Illness HPI narrative: Patient is an 80-year-old female who presents ER with reports of anxiety. She reports she is very sensitive anxiety in today was triggered by having some postnasal drip overnight. She reports her mind is working faster and she becomes overwhelmed. She has been started on Effexor for this. No episodic anti anxiety medications. No fevers or chills or sweats. No chest pain or chest pressure. No nausea or vomiting. No additional concerns. Related Data Home Medications Medication Instructions Recorded Confirmed aspirin 81 mg tablet,delayed 81 mg PO DAILY 04/24/22 09/11/23 release calcium carbonate 600 mg-vitamin 2 tablet PO DAILY 04/24/22 09/11/23 D3 5 mcg (200 unit) tablet polyethylene glycol 3350 17 17 g PO DAILY PRN Constipation 04/24/22 09/11/23 gram/dose oral powder (Miralax) vitamin B complex 1 tablet PO DAILY 04/24/22 09/11/23 acetaminophen 325 mg tablet 650 mg PO Q8H PRN Pain 11/26/22 09/11/23 (Tylenol) mv-mn-folic 200 mcg-vit K 15 2 cap PO DAILY 11/26/22 09/11/23 mcg-lutein 5 mg-zeaxanthin 1 mg capsule (PreserVision AREDS 2 Plus Multivit) Allergies Allergy/AdvReac Type Severity Reaction Status Date / Time neomycin Allergy Unknown Other Verified 09/11/23 11:29 pregabalin Allergy Unknown Other Verified 09/11/23 11:29 vibegron [From Gemtesa] AdvReac Other Verified 09/11/23 11:29 linzess AdvReac Severe diarrhea Uncoded 09/11/23 11:29 Review of Systems Review of Systems: All systems reviewed & are unremarkable except as noted in HPI and below Constitutional: Constitutional: Reports no additional constitutional complaints ENT: Reports nasal congestion and Reports sore throat Cardiovascular: Cardiovascular: Reports no additional cardiovascular complaints Respiratory: Respiratory: Reports no additional respiratory complaints Gastrointestinal: Gastrointestinal: Reports no additional gastrointestinal complaints PMFSH Past Medical History Medical History Anxiety Benign essential hypertension Cancer of left breast Confusion Diarrhea Gastroesophageal reflux disease History of Cutler's palsy Lumbar radiculopathy Lumbar spondylosis Mixed hyperlipidemia Peripheral neuropathy Pre-diabetes Pulmonary nodule Transient ischemic attack Vascular malformation Surgical History Surgical History History of appendectomy History of cataract extraction History of left knee replacement History of left mastectomy Family History Family History Father Carcinoma of colon Mother No problems noted. Sibling Neuropathy Brain tumor Other Malignant neoplasm of prostate Social History Social History Social History: Surrogate medical decision maker: Nate Fabian, amrita. Code status: Full code. Smoking status: Never smoker Second hand tobacco smoke exposure: Yes Alcohol intake: current Drinks per week: 1 Substance use: never Substance use type: does not use Do You Feel Safe in your Home?: Yes Lack of Transportation: No Lack of Food: Never True Current Housing: I Have Housing Concerned About Future Housing: No Difficulty Paying Gas/Electric Bills: No Difficulty Paying for Meds: No Currently Unemployed: No Education: High School Diploma/GED Difficulty w/ Childcare or Family Care: No Living arrangements: alone Additional living arrangements comments: Independent living at [facility]. 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 Spiritual care concerns: No Exam Narrative:
[2023-09-25] MEDS: ALPRAZolam (*CRX) 0.5 MG TABLET PO (08:03)
--- NOTE | 2023-09-25 08:10 | PC.NURSE ---
Pt to XR
[2023-09-25 08:15] LABS: Basophils Percent Auto 0.5 % (0.2-1.2); Eosinophils Absolute Auto 0.1 K/mm3 (0-0.3); Eosinophils Percent Auto 0.6 % (0-4.4); Hematocrit 42.2 % (37.0-47.0); Hemoglobin 14.1 g/dL (12.0-15.0); Immature Granulocyte Absolute 0.01 K/mm3 (0.00-0.031); Immature Granulocyte Percent A 0.1 % (0-0.5); Lymphocytes Absolute Auto 1.99 K/mm3 (0.9-3.2); Lymphocytes Percent Auto 25.1 % (18.3-44.2); Mean Corpuscular HGB Conc 33.4 g/dl (32-36); Mean Corpuscular Hemoglobin 31.1 pg (26-34); Mean Corpuscular Volume 93.2 fl (80-100); Mean Platelet Volume 8.5 fl (7.4-10.4); Monocytes Absolute Auto 0.8 K/mm3 (0.1-0.6); Monocytes Percent Auto 9.6 % (2.6-8.5); Neutrophils Absolute Auto 5.1 K/mm3 (1.3-6.7); Neutrophils Percent Auto 64.1 % (45.5-73.1); Platelet Count Result 311 k/mm3 (150-375); Red Blood Count 4.53 M/mm3 (4.2-5.4); Red Cell Distribution Width 11.9 % (11.5-14.5); White Blood Count 7.9 K/mm3 (4.5-10.0)
[2023-09-25 08:19] LABS: Appearance Urine Clear (Clear); Bacteria Urine None Seen /hpf; Bilirubin Urine Negative (Negative); Blood Urine Non-Hemolyzed Trace (Negative); Color Urine Yellow (Yellow); Glucose Urine UA Negative (Negative); Ketones Urine Negative (Negative); Leukocyte Esterase Ur Negative LEU/UL (Negative); Nitrate Urine Negative (Negative); Non Pathogenic Casts 0-2; Protein Urine Negative (Negative); RBC Urine 0-2 /hpf (0-2); Specific Grav Ur 1.007 (1.001-1.035); Squamous Epithelial Cell Urine None Seen /hpf (Few); Urobilinogen Urine 0.2 mg/dL (<2.0); WBC Urine 0-5 /hpf (0-3)
[2023-09-25 08:27] LABS: Alanine Aminotransferase 26 U/L (6-35); Albumin Level 4.3 g/dL (3.5-5.1); Alkaline Phosphatase 61 U/L (38-126); Anion Gap 7 mmol/L (4-12); Aspartate Amino Transferase 26 U/L (14-36); Bilirubin,Total 0.8 mg/dL (0.2-1.3); Blood Urea Nitrogen 16 mg/dL (7-17); Calcium 9.7 mg/dL (8.4-10.2); Carbon Dioxide 27 mmol/L (22-30); Chloride 93 mmol/L (98-107); Estimated CRCL calculation 42 ml/min; Estimated Glomerular Filt Rate > 60; Glucose 122 mg/dL (65-110); Potassium 4.4 mmol/L (3.4-5.0); Sodium 127 mmol/L (137-145)
[2023-09-25 08:30] VITALS: BP 153/76; PULSE 72; RESP 20; O2SAT 98
[2023-09-25 08:30] LABS: Add Urine Microscopic? YES
--- NOTE | 2023-09-25 09:15 | PC.NURSE ---
PO challenge of celia crackers and apple juice given to pt.
--- NOTE | 2023-09-25 09:41 | PC.NURSE ---
[facility] called, no available transport at this time. Daughter Bonifacio called, currently at work, will be coming to take pt home to [facility].
[2023-09-25 09:43] VITALS: BP 145/69; PULSE 64; RESP 18; O2SAT 98
== END 2023-09-25 10:24 | disposition home or self-care (01) ==
PROVIDERS: Emergency Provider Emergency Medicine; PCP Family Medicine
DX: F41.9 Anxiety disorder, unspecified (principal); E87.1 Hypo-osmolality and hyponatremia; Z79.82 Long term (current) use of aspirin; I10 Essential (primary) hypertension; K21.9 Gastro-esophageal reflux disease without esophagitis; E78.5 Hyperlipidemia, unspecified; Z86.73 Personal history of transient ischemic attack (TIA), and cerebral infarction without residual deficits
CPT/HCPCS: 36415; 71046; 80053; 81001; 85025; 99283; A9270

== ENCOUNTER 2023-11-08 15:09 | Inpatient (IN) | payer MEDICARE, BC, SELFPAY ==
[2023-11-08] VITALS (10 sets, daily range): BP systolic 117–193; BP diastolic 47–81; PULSE 83–97; RESP 16–21; TEMP 37.1; O2SAT 94–98
--- NOTE | ~2023-11-08 | MR_ITS ---
EXAMINATION: MR brain/brain stem wo/w con DATE: 11/09/2023 10:43 INDICATION: Altered mental status. TECHNIQUE: Magnetic resonance imaging (MRI) of the brain and brainstem was performed without and with 11 mL MultiHance intravenous contrast. COMPARISON: Brain MRI 08/03/2023, head CT 11/08/2023 FINDINGS: There are scattered areas of nonspecific increased T2-weighted signal intensity in the cere bral white matter, deep white nuclei, and rei. There is an old infarct in the right cerebellum. There is an old infarct in the left thalamus. There is no intracranial hemorrhage, acute infarction, or ab normal intracranial mass lesion. The ventricles are normal in size. There are likely changes of ocula r lens replacement surgeries. There is mild mucosal thickening in the ethmoid sinuses. The mastoid ai r cells are normal. IMPRESSION: 1. 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 2. Stable extensive nonspecific cerebral white matter disease and disease of the deep white nuclei and rei, which likely represents chronic small vessel ischemic disease. Reviewed, dictated and finalized at location A. IMPRESSION: 1. 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 2. Stable extensive nonspecific cerebral white matter disease and disease of th e deep white nuclei and rei, which likely represents chronic small vessel ische heather disease.
--- NOTE | ~2023-11-08 | XR_ITS ---
EXAMINATION: XR chest 1V portable DATE: 11/08/2023 20:19 INDICATION: Cough. Altered mental status. TECHNIQUE: frontal view of the chest was obtained. COMPARISON: Chest radiograph dated 09/25/23 and 01/14/2021 FINDINGS: Patient is rotated towards the left. Calcified nodules in the right midlung and calcified mediastinal lymph nodes consistent with old granulomatous disease. Chronic mild streaky lingular atelectasis/sca rring near the apex of the heart. No other airspace opacities, pulmonary edema, pleural effusion or p neumothorax. Heart size is normal. Retrocardiac opacity corresponding to a large sized hiatal hernia. Tortuous and atherosclerotic thoracic aorta. Severe thoracolumbar spondylosis. IMPRESSION: 1. Chronic mild lingular atelectasis/scarring. No acute cardiopulmonary disease. Reviewed, dictated and finalized at location A. IMPRESSION: 1. Chronic mild lingular atelectasis/scarring. No acute cardiopulmonary disease .
--- NOTE | ~2023-11-08 | CT_ITS ---
EXAMINATION: CT brain wo con DATE: 11/08/2023 16:38 INDICATION: Altered level of consciousness. TECHNIQUE: Computed tomography (CT) of the head was performed without intravenous contrast. The mA wa s adjusted according to patient size. Iterative reconstruction technique was employed. The dose-lengt h product was 1362.00 mGy-cm. COMPARISON: Head CT 08/02/2023 FINDINGS: There are scattered areas of low attenuation in the cerebral white matter. There is an old infarct in the left thalamus. There is no intracranial hemorrhage, acute infarction, or abnormal intr acranial mass lesion. The ventricles are normal in size. The mastoid air cells are normal. There is m ild mucosal thickening in the ethmoid sinuses. There are likely changes of ocular lens replacement marks rgeries. IMPRESSION: 1. 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 2. Stable extensive nonspecific cerebral white matter disease, which likely represents chronic small vessel ischemic disease. Reviewed, dictated and finalized at location A. IMPRESSION: 1. 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 2. Stable extensive nonspecific cerebral white matter disease, which likely rep resents chronic small vessel ischemic disease.
--- NOTE | ~2023-11-08 | US_ITS ---
Procedure: Duplex Doppler examination of the bilateral carotids. Indication: Altered mental status Technique: Real time, color-flow and pulse wave Doppler examination of the bilateral carotids was performed. Findings: Zepeda scale ultrasonography of the right neck demonstrated no significant plaque. There was demonstrat ion of normal color-flow and Doppler waveforms within the right common, internal and external carotid arteries. The peak systolic velocities in the right common, internal and external carotid arteries w ere demonstrated to be 94 cm/sec, 94 cm/sec and 96 cm/sec respectively. The right ICA/CCA ratio was 1 .0.The proximal right internal carotid artery demonstrates 0% stenosis relative to the normal distal artery lumen diameter. Zepeda scale sonography of the left neck demonstrated moderate calcified plaques in the left common car otid artery. There was demonstration of normal color-flow and wave forms within the left common, inte rnal and external carotid arteries. The peak systolic velocities in the left common, internal and ext ernal carotid arteries were demonstrated to be 100 andcm/sec, 86 cm/sec and 62 cm/sec respectively. T he left ICA/CCA ratio was 0.8. The proximal left internal carotid artery demonstrates 0% stenosis rel ative to the normal distal artery lumen diameter. There was antegrade flow demonstrated in the bilateral vertebral arteries. Impression: No hemodynamically significant stenosis of the bilateral internal carotid arteries. Antegrade flow in the bilateral vertebral arteries. Note: The methodology used is an indirect measurement validated against a direct method (such as the NASCET criteria) that compares diameters at the stenosis to the distal ICA. Reviewed, dictated and finalized at location . Impression: No hemodynamically significant stenosis of the bilateral internal carotid arter ies. Antegrade flow in the bilateral vertebral arteries. Note: The methodology used is an indirect measurement validated against a direct meth od (such as the NASCET criteria) that compares diameters at the stenosis to the distal ICA.
--- NOTE | 2023-11-08 15:33 | ECG_ITS ---
SEE SCANNED COPY FOR CONFIRMED REPORT MTDD
[2023-11-08] MEDS: LORazepam INJ (*CRX) 2 MG/ML VIAL 0.5 MG IV PUSH (15:50)
[2023-11-08 16:18] LABS: Appearance Urine Cloudy (Clear); Bacteria Urine None Seen /hpf; Bilirubin Urine Negative (Negative); Blood Urine Non-Hemolyzed Trace (Negative); Color Urine Yellow (Yellow); Glucose Urine UA Negative (Negative); Ketones Urine Negative (Negative); Leukocyte Esterase Ur Trace LEU/UL (Negative); Need Manual Microscopic Reviewed; Nitrate Urine Negative (Negative); Protein Urine Negative (Negative); Specific Grav Ur 1.009 (1.001-1.035); Squamous Epithelial Cell Urine None Seen /hpf (Few); Urobilinogen Urine 0.2 mg/dL (<2.0); WBC Urine 0-5 /hpf (0-3); pH Urine 8.5 (5.0-9.0)
[2023-11-08 16:19] LABS: Add Urine Microscopic? YES
[2023-11-08 16:28] LABS: Glucose Point of Care 116 mg/dl (65-105)
[2023-11-08 16:37] LABS: Basophils Percent Auto 0.5 % (0.2-1.2); Eosinophils Absolute Auto 0.1 K/mm3 (0-0.3); Eosinophils Percent Auto 1.4 % (0-4.4); Hemoglobin 13.2 g/dL (12.0-15.0); Immature Granulocyte Absolute 0.02 K/mm3 (0.00-0.031); Immature Granulocyte Percent A 0.3 % (0-0.5); Lymphocytes Percent Auto 14.3 % (18.3-44.2); Mean Corpuscular Hemoglobin 31.6 pg (26-34); Mean Corpuscular Volume 95.7 fl (80-100); Mean Platelet Volume 8.8 fl (7.4-10.4); Monocytes Absolute Auto 0.8 K/mm3 (0.1-0.6); Monocytes Percent Auto 10.4 % (2.6-8.5); Neutrophils Absolute Auto 5.6 K/mm3 (1.3-6.7); Neutrophils Percent Auto 73.1 % (45.5-73.1); Platelet Count Result 309 k/mm3 (150-375); Red Blood Count 4.18 M/mm3 (4.2-5.4); Red Cell Distribution Width 12.4 % (11.5-14.5); White Blood Count 7.7 K/mm3 (4.5-10.0)
[2023-11-08 16:48] LABS: INR 0.9; Prothrombin Time 12.1 Seconds (11.1-14.7)
[2023-11-08 16:49] LABS: Alanine Aminotransferase 24 U/L (6-35); Alkaline Phosphatase 61 U/L (38-126); Anion Gap 5 mmol/L (4-12); Aspartate Amino Transferase 26 U/L (14-36); Bilirubin,Total 0.6 mg/dL (0.2-1.3); Blood Urea Nitrogen 19 mg/dL (7-17); Calcium 9.3 mg/dL (8.4-10.2); Carbon Dioxide 29 mmol/L (22-30); Chloride 99 mmol/L (98-107); Estimated Glomerular Filt Rate > 60; Glucose 110 mg/dL (65-110); Potassium 3.6 mmol/L (3.4-5.0); Sodium 133 mmol/L (137-145)
[2023-11-08 17:01] LABS: Troponin I < 0.012 ng/mL (0.000-0.034)
--- NOTE | 2023-11-08 18:06 | ED.AMS ---
HPI - Altered Mental Status General Chief Complaint: Altered Mental Status <Dixon Dawson MD - Last Filed: 11/08/23 18:21> Stated Complaint: ams <Dixon Dawson MD - Last Filed: 11/08/23 18:21> Time Seen by Provider: 11/08/23 15:30 <Dixon Dawson MD - Last Filed: 11/08/23 18:21> Source: family <Dixon Dawson MD - Last Filed: 11/08/23 18:21> Mode of arrival: wheelchair <Dixon Dawson MD - Last Filed: 11/08/23 18:21> Limitations: altered mental status <Dixon Dawson MD - Last Filed: 11/08/23 18:21> History of Present Illness HPI narrative: 88-year-old with a history of anxiety, hypertension, TIA, confusion was brought in by daughter with a sudden onset of change in mental status, daughter states that she was fine this morning on Saturday had mental status change she is being very aggressive and not talking. Daughter thinks she may be having UTI . No history of falls denies any fever or chills. <Dixon Dawson MD - Last Filed: 11/08/23 18:21> Related Data Home Medications: Home Medications Medication Instructions Recorded Confirmed buspirone 10 mg tablet mg 11/08/23 escitalopram oxalate 20 mg tablet mg 11/08/23 hydroxyzine HCl 25 mg tablet mg 11/08/23 <Dixon Dawson MD - Last Filed: 11/08/23 18:21> Allergies/Adverse Reactions: Allergies Allergy/AdvReac Type Severity Reaction Status Date / Time linaclotide [From Linzess] Allergy Mild Unknown Verified 11/05/23 09:50 neomycin Allergy Unknown Other Verified 11/05/23 09:50 pregabalin Allergy Unknown Other Verified 11/05/23 09:50 vibegron [From Gemtesa] AdvReac Other Verified 11/05/23 09:50 <Dixon Dawson MD - Last Filed: 11/08/23 18:21> Review of Systems Review of Systems: ROS unobtainable: Yes unobtainable due to mental status <Dixon Dawson MD - Last Filed: 11/08/23 18:21> PMFSH Past Medical History Medical History: Medical History Anxiety Benign essential hypertension Cancer of left breast Chronic cough Confusion Diarrhea Gastroesophageal reflux disease History of Cutler's palsy Lumbar radiculopathy Lumbar spondylosis Mixed hyperlipidemia Peripheral neuropathy Pre-diabetes Pulmonary nodule Transient ischemic attack Vascular malformation <Dixon Dawson MD - Last Filed: 11/08/23 18:21> Surgical History Surgical History: Surgical History History of appendectomy History of cataract extraction History of left knee replacement History of left mastectomy <Dixon Dawson MD - Last Filed: 11/08/23 18:21> Family History Family History: Family History Father Carcinoma of colon Mother No problems noted. Sibling Neuropathy Brain tumor Other Malignant neoplasm of prostate <Dixon Dawson MD - Last Filed: 11/08/23 18:21> Social History Social History: Social History Social History: Surrogate medical decision maker: Nate Fabian, son. Code status: Full code. Smoking status: Never smoker Second hand tobacco smoke exposure: Yes Alcohol intake: current Drinks per week: 1 Substance use: never Substance use type: does not use Do You Feel Safe in your Home?: Yes Lack of Transportation: No Lack of Food: Never True Current Housing: I Have Housing Concerned About Future Housing: No Difficulty Paying Gas/Electric Bills: No Difficulty Paying for Meds: No Currently Unemployed: No Education: High School Diploma/GED Difficulty w/ Childcare or Family Care: No Living arrangements: alone Additional living arrangements comments: Independent living at [facility]. 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
[2023-11-08 19:30] LABS: SARS-CoV-2 RNA PCR Negative (Negative)
[2023-11-09] VITALS (11 sets, daily range): BP systolic 121–170; BP diastolic 53–65; PULSE 78–109; RESP 14–20; TEMP 36.6–37.8; O2SAT 96–99
--- NOTE | 2023-11-09 01:12 | PC.NURSE ---
Per EDP Dr. Galaviz cancel crisis and patient will be admitted here.
--- NOTE | 2023-11-09 02:15 | ADMGEN ---
This patient, Patricia Fabian, was admitted to [facility] Surg Room 315-02. Patient/family oriented to hospital policies and general routines including ID bracelet, bed and alarms, visiting hours, pain management, procedures, bathroom and other care routines, personal items, smoking policy, room service/diet, and visiting hours. Information on how to activate the Rapid Response Team has been discussed. Patient/Family are encouraged to report perceived risks to care and to ask questions if they do not understand what they are told or what they should do.
--- NOTE | 2023-11-09 05:37 | PC.NURSE ---
This RN called pt daughter Bonifacio to discuss admission questions and went over home meds.
--- NOTE | 2023-11-09 09:31 | PM.IMHP ---
H&P: HPI History of Present Illness Date/Time: 11/09/23 09:31 Chief Complaint: confusion Narrative: 88-year-old female with history of depression and anxiety 1st noted in 2016 around the time she moved into assisted living. Since that time her has . She initially was treated with Effexor low-dose and did well with that. she did counseling as well. She stopped the counseling as she was doing better. The Effexor was discontinued at some point. More recently she was given Lexapro. However this made her nauseated and caused more depression. She was in the process of tapering off that to start Effexor XR 37.5 mg daily again but had not started it yet. She was taking 5 mg of Lexapro. Recently to she had been given a prescription for guaifenesin with codeine for a cough and congestion. She is no longer taking that stopped it a few days ago. She presented to the emergency department because of sudden onset of confusion when she was on her way to exercise on November 07. The confusion progressed to agitation and combative behavior. She was brought to the emergency room her CT of the brain was unchanged from July when she was admitted for similar symptoms. She has not received any of her home medications since admission yesterday. And today she is back at her baseline mental status. Daughter is at bedside and confirms this. Mrs. Fabian denied any chest pain or breathing issues. No GI or issues other than frequent urination. Her constipation is controlled by Metamucil. No abnormal bleeding. No focal weakness or numbness. No dizziness. No loss of consciousness. No recent falls. In retrospect patient and daughter recall that her depression began at about the time she started taking Linzess for constipation. She also had a similar reaction to a medication for overactive bladder, Gemtesa. in the past she saw Dr. Gilbert for Psychiatry. More recently she has been treated by her primary care providers and the nurse practitioner affiliated with the psychiatrist for [facility]. She was not aware of a heart valve issue but did have an echocardiogram that showed mild mitral regurgitation and aortic valve sclerosis in July of this year. In July she was admitted for similar episode. She was treated for urinary infection with p.o. Keflex even though her urine culture was negative. She rapidly improved at that time as she did at this time. At home she does administer her own medications. She does not use the pill organizer but takes them out of the bottle. Review of Systems Review of Systems: All systems reviewed & are unremarkable except as noted in HPI and below PMFSH Past Medical History Medical History (Updated 11/09/23 @ 09:57 by Adam Bailey MD) Anxiety Benign essential hypertension Cancer of left breast Chronic cough Confusion Depression Diarrhea Gastroesophageal reflux disease History of Cutler's palsy History of completed stroke Lumbar radiculopathy Lumbar spondylosis Mixed hyperlipidemia Peripheral neuropathy Pre-diabetes Pulmonary nodule Transient ischemic attack Vascular malformation Surgical History Surgical History History of appendectomy History of cataract extraction History of left knee replacement History of left mastectomy Family History Family History Father Carcinoma of colon Mother No problems noted. Sibling Neuropathy Brain tumor Other Malignant neoplasm of prostate Social History Social History (Updated 11/09/23 @ 09:48 by Adam Bailey MD) Social History: Surrogate medical decision maker: Nate Fabian, son. Code status: DNR. Smoking status: Never smoker Second hand tobacco smoke exposure: Yes Alcohol intake: never Drinks per week: 1 Substance use: never Do You Feel Safe in your Ho
[2023-11-09 11:19] LABS: Cholesterol 193 mg/dL (0-200); HDL Direct 94 mg/dL; Hemoglobin A1C 5.6 % (<5.7); Triglycerides 63 mg/dL (<150)
[2023-11-09 11:24] LABS: Anion Gap 5 mmol/L (4-12); Blood Urea Nitrogen 20 mg/dL (7-17); CRP < 0.5 mg/dL (<1.0); Calcium 9.8 mg/dL (8.4-10.2); Carbon Dioxide 31 mmol/L (22-30); Chloride 97 mmol/L (98-107); Estimated CRCL calculation 41 ml/min; Estimated Glomerular Filt Rate > 60; Glucose 160 mg/dL (65-110); Potassium 4.1 mmol/L (3.4-5.0); Sodium 133 mmol/L (137-145)
[2023-11-09 11:31] LABS: LDL Cholesterol Direct 87 mg/dL
[2023-11-09 12:38] LABS: Folic Acid > 20.0 ng/mL (2.76->20)
[2023-11-09 14:14] LABS: Creatinine Urine 50.8 mg/dL
[2023-11-09 14:16] LABS: Sodium Urine Random 90 meq/L
[2023-11-09] MEDS: PANTOPRAZOLE 40 MG TABLET PO (14:52)
[2023-11-09] MEDS: FELODIPINE 5 MG TAB CR 10 MG PO (14:52)
[2023-11-09] MEDS: LOSARTAN POTASSIUM 50 MG TABLET PO (14:53)
[2023-11-09] MEDS: ASPIRIN 81 MG ENTERIC TABLET PO (14:53)
--- NOTE | 2023-11-09 21:18 | PC.NURSE ---
Patient has been disoriented and getting out of bed since creative services writer took shift at 1900. Patient is not able to be directed and doesn't follow any verbal commands or practice any safety precautions. House sup contacted for sitter and non available at this time.
[2023-11-09] MEDS: ACETAMINOPHEN 325 MG TABLET 650 MG PO (23:07)
[2023-11-10] VITALS (11 sets, daily range): BP systolic 130–149; BP diastolic 58–88; PULSE 75–93; RESP 14–16; TEMP 36.4–37.3; O2SAT 97–98
[2023-11-10] MEDS: FELODIPINE 5 MG TAB CR 10 MG PO (08:50)
[2023-11-10] MEDS: ACETAMINOPHEN 325 MG TABLET 650 MG PO ×2 (08:50→14:05)
[2023-11-10] MEDS: PANTOPRAZOLE 40 MG TABLET PO (08:50)
[2023-11-10] MEDS: ASPIRIN 81 MG ENTERIC TABLET PO (08:50)
[2023-11-10] MEDS: ROSUVASTATIN 20 MG TABLET PO (08:50)
[2023-11-10] MEDS: LOSARTAN POTASSIUM 50 MG TABLET PO (08:50)
--- NOTE | 2023-11-10 10:33 | P.PNIM_ITS ---
Progress Note: A&P Assessment and Plan (1) Altered mental status: Code(s): R41.82 - Altered mental status, unspecified Status: Acute Assessment and Plan: * suspect drug reaction with underlying depression and anxiety * TIA is possible given known cerebral vascular disease however is clinically less likely * seizure and postictal confusion is clinically unlikely * hypoglycemia is clinically unlikely * no evidence for acute infection * reviewed echocardiogram results from July 2023 * monitor on telemetry * obtain TSH and vitamin B12 * MRI brain pending * withhold psychotropic medications * initiate PT and OT * 11/08 discussed at length with patient and daughter outpatient psychiatric consultation and resumption of CBT, also discussed transition to assisted living for medication administration and closer monitoring (2) History of completed stroke: Code(s): Z86.73 - Personal history of transient ischemic attack (TIA), and cerebral infarction without residual deficits Status: Acute Assessment and Plan: * continue antihypertensives and statin * 11/08 added low-dose aspirin * 11/09 added rosuvastatin * 11/08 carotid doppler negative (as was prior MRA and CTA) * 11/08 MRI brain showed old stroke left thalamus plus old stroke in right cerebellum (latter not seen on prior scan) * 11/08-11/09 telemetry with no afib * 11/09 discussed findings and treatment and Mrs. Fabian's wishes by phone with sonNate (3) Low sodium levels: Code(s): E87.1 - Hypo-osmolality and hyponatremia Status: Acute Assessment and Plan: * Sodium levels in recent passive range from 07/13 133. 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, age, or both * TSH and urine sodium WNL (4) Peripheral neuropathy: Qualifiers: Peripheral neuropathy type: polyneuropathy, unspecified Qualified Code(s): G62.9 - Polyneuropathy, unspecified Code(s): G62.9 - Polyneuropathy, unspecified Status: Acute Assessment and Plan: * by history * clinically mild * etiology unclear (5) Mixed hyperlipidemia: Code(s): E78.2 - Mixed hyperlipidemia Status: Acute Assessment and Plan: * 11/09 changed from pravastatin to rosuvastatin for secondary stroke prevention (6) Benign essential hypertension: Code(s): I10 - Essential (primary) hypertension Status: Acute Assessment and Plan: * continue felodipine and losartan (7) History of left mastectomy: Code(s): Z90.12 - Acquired absence of left breast and nipple Status: Acute Assessmen
--- NOTE | 2023-11-10 10:33 | PM.IMPN ---
Progress Note: A&P Assessment and Plan (1) Altered mental status: Code(s): R41.82 - Altered mental status, unspecified Status: Acute Assessment and Plan: suspect drug reaction with underlying depression and anxiety TIA is possible given known cerebral vascular disease however is clinically less likely seizure and postictal confusion is clinically unlikely hypoglycemia is clinically unlikely no evidence for acute infection reviewed echocardiogram results from July 2023 monitor on telemetry obtain TSH and vitamin B12 MRI brain pending withhold psychotropic medications initiate PT and OT 11/08 discussed at length with patient and daughter outpatient psychiatric consultation and resumption of CBT, also discussed transition to assisted living for medication administration and closer monitoring (2) History of completed stroke: Code(s): Z86.73 - Personal history of transient ischemic attack (TIA), and cerebral infarction without residual deficits Status: Acute Assessment and Plan: continue antihypertensives and statin 11/08 added low-dose aspirin 11/09 added rosuvastatin 11/08 carotid doppler negative (as was prior MRA and CTA) 11/08 MRI brain showed old stroke left thalamus plus old stroke in right cerebellum (latter not seen on prior scan) 11/08-11/09 telemetry with no afib 11/09 discussed findings and treatment and Mrs. Fabian's wishes by phone with son, Nate (3) Low sodium levels: Code(s): E87.1 - Hypo-osmolality and hyponatremia Status: Acute Assessment and Plan: Sodium levels in recent passive range from 07/13 133. 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, age, or both TSH and urine sodium WNL (4) Peripheral neuropathy: Qualifiers: Peripheral neuropathy type: polyneuropathy, unspecified Qualified Code(s): G62.9 - Polyneuropathy, unspecified Code(s): G62.9 - Polyneuropathy, unspecified Status: Acute Assessment and Plan: by history clinically mild etiology unclear (5) Mixed hyperlipidemia: Code(s): E78.2 - Mixed hyperlipidemia Status: Acute Assessment and Plan: 11/09 changed from pravastatin to rosuvastatin for secondary stroke prevention (6) Benign essential hypertension: Code(s): I10 - Essential (primary) hypertension Status: Acute Assessment and Plan: continue felodipine and losartan (7) History of left mastectomy: Code(s): Z90.12 - Acquired absence of left breast and nipple Status: Acute Assessment and Plan: clinically no sign of CA recurrence (8) Depression: Code(s): F32.A - Depression, unspecified Status: Acute Assessment and Plan: associated with anxiety not responding well to current regimen consider trial of Effexor XR 37.5 mg (responded well to that in past) (9) Gastroesophageal reflux disease: Code(s): K21.9 - Gastro-esophageal reflux disease without esophagitis Status: Acute Assessment and Plan: continue low dose PPI (10) Fever: Qualifiers: Fever type: unspecified Qualified Code(s): R50.9 - Fever, unspecified Code(s): R50.9 - Fever, unspecified Status: Acute Assessment and Plan: 11/09 100.0 w/o focal symptoms or findings 11/08 CRP undetectable Monitor and f/u CBC, CRP Subjective Date/time seen: 11/10/23 10:33 Interval history: Confuse last night. Had a low-grade temperature today of 100.0 not feeling well overall. Symptoms. Tired. Denied pain. Denied shortness of breath. Denied nausea and I GI or difficulties. Denied focal weakness. Does not want to return to her apt. Feels she cannot manage independently. Review of Systems Review of Systems: All systems reviewed & are unremarkable except as noted in HPI and below Exam Narrative: HEENT: EOMI, PERRL, sclerae nonicteric, pharyngeal mucosa
[2023-11-10] MEDS: VENLAFAXINE HCL XR 37.5 MG CAP PO (14:05)
[2023-11-10] MEDS: MELATONIN 5 MG TABLET PO (20:56)
[2023-11-11] VITALS (9 sets, daily range): BP systolic 126–169; BP diastolic 54–62; PULSE 66–95; RESP 14–18; TEMP 36.3–36.6; O2SAT 96–97
[2023-11-11 06:41] LABS: Basophils Percent Auto 0.7 % (0.2-1.2); Eosinophils Absolute Auto 0.2 K/mm3 (0-0.3); Eosinophils Percent Auto 2.9 % (0-4.4); Hematocrit 40.7 % (37.0-47.0); Hemoglobin 13.3 g/dL (12.0-15.0); Immature Granulocyte Absolute 0.03 K/mm3 (0.00-0.031); Immature Granulocyte Percent A 0.5 % (0-0.5); Lymphocytes Absolute Auto 1.24 K/mm3 (0.9-3.2); Lymphocytes Percent Auto 20.8 % (18.3-44.2); Mean Corpuscular HGB Conc 32.7 g/dl (32-36); Mean Corpuscular Volume 94.9 fl (80-100); Mean Platelet Volume 8.6 fl (7.4-10.4); Monocytes Absolute Auto 0.8 K/mm3 (0.1-0.6); Monocytes Percent Auto 12.8 % (2.6-8.5); Neutrophils Absolute Auto 3.7 K/mm3 (1.3-6.7); Neutrophils Percent Auto 62.3 % (45.5-73.1); Platelet Count Result 312 k/mm3 (150-375); Red Blood Count 4.29 M/mm3 (4.2-5.4)
[2023-11-11 07:17] LABS: Alanine Aminotransferase 22 U/L (6-35); Albumin Level 3.8 g/dL (3.5-5.1); Alkaline Phosphatase 55 U/L (38-126); Anion Gap 6 mmol/L (4-12); Aspartate Amino Transferase 23 U/L (14-36); Bilirubin,Total 0.9 mg/dL (0.2-1.3); Blood Urea Nitrogen 16 mg/dL (7-17); CRP 0.5 mg/dL (<1.0); Calcium 9.2 mg/dL (8.4-10.2); Carbon Dioxide 27 mmol/L (22-30); Chloride 94 mmol/L (98-107); Estimated CRCL calculation 41 ml/min; Estimated Glomerular Filt Rate > 60; Glucose 117 mg/dL (65-110); Potassium 3.9 mmol/L (3.4-5.0); Sodium 127 mmol/L (137-145)
[2023-11-11 07:37] LABS: Glucose Point of Care 119 mg/dl (65-105)
[2023-11-11] MEDS: FELODIPINE 5 MG TAB CR 10 MG PO (08:48)
[2023-11-11] MEDS: LOSARTAN POTASSIUM 50 MG TABLET PO (08:48)
[2023-11-11] MEDS: ASPIRIN 81 MG ENTERIC TABLET PO (08:48)
[2023-11-11] MEDS: VENLAFAXINE HCL XR 37.5 MG CAP PO (08:49)
[2023-11-11] MEDS: ROSUVASTATIN 20 MG TABLET PO (08:49)
[2023-11-11] MEDS: PANTOPRAZOLE 40 MG TABLET PO (08:49)
--- NOTE | 2023-11-11 14:00 | P.PNIM_ITS ---
Progress Note: A&P Assessment and Plan (1) Altered mental status: Code(s): R41.82 - Altered mental status, unspecified Status: Acute Assessment and Plan: * suspect drug reaction with underlying depression and anxiety * TIA is possible given known cerebral vascular disease however is clinically less likely * seizure and postictal confusion is clinically unlikely * hypoglycemia is clinically unlikely * no evidence for acute infection * reviewed echocardiogram results from July 2023 * monitor on telemetry * obtain TSH and vitamin B12 * MRI brain pending * withhold psychotropic medications * initiate PT and OT * 11/08 discussed at length with patient and daughter outpatient psychiatric consultation and resumption of CBT, also discussed transition to assisted living for medication administration and closer monitoring 11/10:Patient continuesTo feelDepressedAnd is lookingForFacilityPlacement rather thanReturn to independentLiving status (2) History of completed stroke: Code(s): Z86.73 - Personal history of transient ischemic attack (TIA), and cerebral infarction without residual deficits Status: Acute Assessment and Plan: * continue antihypertensives and statin * 11/08 added low-dose aspirin * 11/09 added rosuvastatin * 11/08 carotid doppler negative (as was prior MRA and CTA) * 11/08 MRI brain showed old stroke left thalamus plus old stroke in right cerebellum (latter not seen on prior scan) * 11/08-11/09 telemetry with no afib * 11/09 discussed findings and treatment and Mrs. Fabian's wishes by phone with son, Nate 11/10:Complaints of intermittent visionDisturbance but deniesWeakness or difficultySwallowing. (3) Low sodium levels: Code(s): E87.1 - Hypo-osmolality and hyponatremia Status: Acute Assessment and Plan: * Sodium levels in recent passive range from 127 to 133. 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, age, or both * TSH and urine sodium WNL 11/10:Sodium 127 again today (4) Peripheral neuropathy: Qualifiers: Peripheral neuropathy type: polyneuropathy, unspecified Qualified Code(s): G62.9 - Polyneuropathy, unspecified Code(s): G62.9 - Polyneuropathy, unspecified Status: Acute Assessment and Plan: * by history * clinically mild * etiology unclear (5) Mixed hyperlipidemia: Code(s): E78.2 - Mixed hyperlipidemia Status: Acute Assessment and Plan: * 11/09 changed from pravastatin to rosuvastatin for secondary stroke prevention (6) Benign essential hypertension: Code(s): I10 - Essential (primary) hypertension Status: Acute Assessment and Plan: * continue felodipine and losartan
--- NOTE | 2023-11-11 14:00 | PM.IMPN ---
Progress Note: A&P Assessment and Plan (1) Altered mental status: Code(s): R41.82 - Altered mental status, unspecified Status: Acute Assessment and Plan: suspect drug reaction with underlying depression and anxiety TIA is possible given known cerebral vascular disease however is clinically less likely seizure and postictal confusion is clinically unlikely hypoglycemia is clinically unlikely no evidence for acute infection reviewed echocardiogram results from July 2023 monitor on telemetry obtain TSH and vitamin B12 MRI brain pending withhold psychotropic medications initiate PT and OT 11/08 discussed at length with patient and daughter outpatient psychiatric consultation and resumption of CBT, also discussed transition to assisted living for medication administration and closer monitoring 11/10:Patient continuesTo feelDepressedAnd is lookingForFacilityPlacement rather thanReturn to independentLiving status (2) History of completed stroke: Code(s): Z86.73 - Personal history of transient ischemic attack (TIA), and cerebral infarction without residual deficits Status: Acute Assessment and Plan: continue antihypertensives and statin 11/08 added low-dose aspirin 11/09 added rosuvastatin 11/08 carotid doppler negative (as was prior MRA and CTA) 11/08 MRI brain showed old stroke left thalamus plus old stroke in right cerebellum (latter not seen on prior scan) 11/08-11/09 telemetry with no afib 11/09 discussed findings and treatment and Mrs. Fabian's wishes by phone with son, Nate 11/10:Complaints of intermittent visionDisturbance but deniesWeakness or difficultySwallowing. (3) Low sodium levels: Code(s): E87.1 - Hypo-osmolality and hyponatremia Status: Acute Assessment and Plan: Sodium levels in recent passive range from 127 to 133. 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, age, or both TSH and urine sodium WNL 11/10:Sodium 127 again today (4) Peripheral neuropathy: Qualifiers: Peripheral neuropathy type: polyneuropathy, unspecified Qualified Code(s): G62.9 - Polyneuropathy, unspecified Code(s): G62.9 - Polyneuropathy, unspecified Status: Acute Assessment and Plan: by history clinically mild etiology unclear (5) Mixed hyperlipidemia: Code(s): E78.2 - Mixed hyperlipidemia Status: Acute Assessment and Plan: 11/09 changed from pravastatin to rosuvastatin for secondary stroke prevention (6) Benign essential hypertension: Code(s): I10 - Essential (primary) hypertension Status: Acute Assessment and Plan: continue felodipine and losartan (7) History of left mastectomy: Code(s): Z90.12 - Acquired absence of left breast and nipple Status: Acute Assessment and Plan: clinically no sign of CA recurrence (8) Depression: Code(s): F32.A - Depression, unspecified Status: Acute Assessment and Plan: associated with anxiety not responding well to current regimen consider trial of Effexor XR 37.5 mg (responded well to that in past) 11/10:PlansTo reestablish with outpatient psychiatry (9) Gastroesophageal reflux disease: Code(s): K21.9 - Gastro-esophageal reflux disease without esophagitis Status: Acute Assessment and Plan: continue low dose PPI (10) Fever: Qualifiers: Fever type: unspecified Qualified Code(s): R50.9 - Fever, unspecified Code(s): R50.9 - Fever, unspecified Status: Acute Assessment and Plan: 11/09 100.0 w/o focal symptoms or findings 11/08 CRP undetectable Monitor and f/u CBC, CRP Time Spent With Patient Time with patient: 25 - 35 minutes Subjective Date/time seen: 11/11/23 14:01 Interval history: Patient denies fever chills over the last 24 hours states that she just feels run down and tired. Awaiting placement as patient previously l
[2023-11-11] MEDS: MELATONIN 5 MG TABLET PO (20:14)
[2023-11-11 20:37] LABS: Glucose Point of Care 116 mg/dl (65-105)
[2023-11-12] VITALS: PULSE 76
[2023-11-12 04:00] VITALS: PULSE 70
[2023-11-12 04:27] VITALS: BP 139/49; PULSE 77; RESP 16; TEMP 36.1; O2SAT 98
--- NOTE | 2023-11-12 07:44 | PM.DS ---
DS: Admitting Diagnosis Discharge Date 11/12/2023 Admitting Diagnosis Altered mental status, low sodium levels, peripheral neuropathy, mixed hyperlipidemia, history of left mastectomy, depression, history of completed stroke, GERD DS: Discharge Diagnosis Discharge Diagnosis (1) Altered mental status: Code(s): R41.82 - Altered mental status, unspecified Status: Acute (2) Low sodium levels: Code(s): E87.1 - Hypo-osmolality and hyponatremia Status: Acute (3) History of completed stroke: Code(s): Z86.73 - Personal history of transient ischemic attack (TIA), and cerebral infarction without residual deficits Status: Chronic (4) Peripheral neuropathy: Qualifiers: Peripheral neuropathy type: polyneuropathy, unspecified Qualified Code(s): G62.9 - Polyneuropathy, unspecified Code(s): G62.9 - Polyneuropathy, unspecified Status: Chronic (5) Mixed hyperlipidemia: Code(s): E78.2 - Mixed hyperlipidemia Status: Chronic (6) Benign essential hypertension: Code(s): I10 - Essential (primary) hypertension Status: Chronic (7) History of left mastectomy: Code(s): Z90.12 - Acquired absence of left breast and nipple Status: Chronic (8) Depression: Code(s): F32.A - Depression, unspecified Status: Chronic (9) Gastroesophageal reflux disease: Code(s): K21.9 - Gastro-esophageal reflux disease without esophagitis Status: Chronic (10) Fever: Qualifiers: Fever type: unspecified Qualified Code(s): R50.9 - Fever, unspecified Code(s): R50.9 - Fever, unspecified Status: Resolved DS: Summary Hospital Course Hospital Course: From history and physical: 88-year-old female with history of depression and anxiety 1st noted in 2017 around the time she moved into assisted living.? Since that time her has .? She initially was treated with Effexor low-dose and did well with that. ? she did counseling as well.? She stopped the counseling as she was doing better.? The Effexor was discontinued at some point.? More recently she was given Lexapro.? However this made her nauseated and caused more depression.? She was in the process of tapering off that to start Effexor XR 37.5 mg daily again but had not started it yet.? She was taking 5 mg of Lexapro.? Recently to she had been given a prescription for guaifenesin with codeine for a cough and congestion.? She is no longer taking that stopped it a few days ago. ? She presented to the emergency department because of sudden onset of confusion when she was on her way to exercise on November 07.? The confusion progressed to agitation and combative behavior.? She was brought to the emergency room her CT of the brain was unchanged from July when she was admitted for similar symptoms.? She has not received any of her home medications since admission yesterday.? And today she is back at her baseline mental status.? Daughter is at bedside and confirms this. Mrs. Fabian denied any chest pain or breathing issues.? No GI or issues other than frequent urination. Her constipation is controlled by Metamucil.? No abnormal bleeding.? No focal weakness or numbness.? No dizziness.? No loss of consciousness.? No recent falls. ? In retrospect patient and daughter recall that her depression began at about the time she started taking Linzess for constipation.? She also had a similar reaction to a medication for overactive bladder, Gemtesa. ?in the past she saw Dr. Gilbert for Psychiatry.? More recently she has been treated by her primary care providers and the nurse practitioner affiliated with the psychiatrist for [facility]. ? She was not aware of a heart valve issue but did have an echocardiogram that showed mild mitral regurgitation and aortic valve sclerosis in July of this year.? In July she was admitted for similar episode.? She was treated for urinary infection with p.
[2023-11-12] MEDS: PANTOPRAZOLE 40 MG TABLET PO (07:59)
[2023-11-12] MEDS: FELODIPINE 5 MG TAB CR 10 MG PO (07:59)
[2023-11-12] MEDS: VENLAFAXINE HCL XR 37.5 MG CAP PO (07:59)
[2023-11-12] MEDS: ROSUVASTATIN 20 MG TABLET PO (07:59)
[2023-11-12] MEDS: ASPIRIN 81 MG ENTERIC TABLET PO (07:59)
[2023-11-12] MEDS: LOSARTAN POTASSIUM 50 MG TABLET PO (07:59)
[2023-11-12 08:00] VITALS: PULSE 87
[2023-11-12 11:49] LABS: Hematocrit 41.3 % (37.0-47.0); Hemoglobin 13.7 g/dL (12.0-15.0); Mean Corpuscular HGB Conc 33.2 g/dl (32-36); Mean Corpuscular Hemoglobin 31.4 pg (26-34); Mean Corpuscular Volume 94.7 fl (80-100); Mean Platelet Volume 8.7 fl (7.4-10.4); Platelet Count Result 338 k/mm3 (150-375); Red Blood Count 4.36 M/mm3 (4.2-5.4); White Blood Count 7.5 K/mm3 (4.5-10.0)
[2023-11-12 12:01] LABS: Anion Gap 5 mmol/L (4-12); Blood Urea Nitrogen 15 mg/dL (7-17); Calcium 9.2 mg/dL (8.4-10.2); Carbon Dioxide 31 mmol/L (22-30); Chloride 95 mmol/L (98-107); Estimated CRCL calculation 48 ml/min; Estimated Glomerular Filt Rate > 60; Glucose 90 mg/dL (65-110); Potassium 3.9 mmol/L (3.4-5.0); Sodium 131 mmol/L (137-145)
[2023-11-12 13:42] LABS: Appearance Urine Clear (Clear); Bacteria Urine None Seen /hpf; Bilirubin Urine Negative (Negative); Blood Urine Trace (Negative); Color Urine Yellow (Yellow); Glucose Urine UA Negative (Negative); Ketones Urine Negative (Negative); Leukocyte Esterase Ur Negative LEU/UL (Negative); Nitrate Urine Negative (Negative); Non Pathogenic Casts 0-2; Protein Urine Negative (Negative); Specific Grav Ur 1.014 (1.001-1.035); Squamous Epithelial Cell Urine None Seen /hpf (Few); WBC Urine 0-5 /hpf (0-3)
[2023-11-12 13:44] LABS: Add Urine Microscopic? YES
[2023-11-12 14:00] VITALS: BP 130/52; PULSE 68; RESP 18; TEMP 36.6; O2SAT 99
== END 2023-11-12 14:40 | DRG 641 ==
LOC: ANHED 11-09 01:05 → ANH3MEDSUR 11-09 02:08
PROVIDERS: Family Medicine; Internal Medicine; Admitting Provider Internal Medicine; Emergency Provider Emergency Medicine; PCP Family Medicine; Visit Provider Nurse Practitioner
DX: E87.1 Hypo-osmolality and hyponatremia (principal); R44.3 Hallucinations, unspecified; I10 Essential (primary) hypertension; K21.9 Gastro-esophageal reflux disease without esophagitis; E78.2 Mixed hyperlipidemia; M47.26 Other spondylosis with radiculopathy, lumbar region; G62.9 Polyneuropathy, unspecified; R73.03 Prediabetes; T43.215A Adverse effect of selective serotonin and norepinephrine reuptake inhibitors, initial encounter; F50.9 Eating disorder, unspecified; F41.9 Anxiety disorder, unspecified; Z20.822 Contact with and (suspected) exposure to COVID-19; Z96.652 Presence of left artificial knee joint; Z86.73 Personal history of transient ischemic attack (TIA), and cerebral infarction without residual deficits; Z85.3 Personal history of malignant neoplasm of breast
CPT/HCPCS: 36415; 70450; 70553; 71045; 80048; 80053; 80061; 81001; 82570; 82607; 82746; 82948; 83036; 84300; 84443; 84484; 85025; 85027; 85610; 86140; 87635; 93005; 93880; 96374; 97110; 97116; 97161; 97165; 99285; A9270; A9577; G0378; J2060

== ENCOUNTER 2024-02-17 12:54 | Emergency (ER) | payer MEDICARE, BC, SELFPAY ==
--- NOTE | 2024-02-17 13:02 | ED.FEMALEGU ---
HPI - Female Genitourinary General Chief complaint: Urogenital-Female Stated complaint: Uti Symptoms Time Seen by Provider: 02/17/24 13:10 Source: patient Mode of arrival: ambulatory Limitations: no limitations History of Present Illness HPI Narrative: Surely is a 88-year-old female patient presenting to the clinic today with complaints of burning with urination that began yesterday. She denies any urinary frequency or urgency. She denies any back pain, abdominal pain, fever, chills, or body aches. Related Data Allergies Allergy/AdvReac Type Severity Reaction Status Date / Time linaclotide [From Linzess] Allergy Mild Unknown Verified 12/31/23 13:20 neomycin Allergy Unknown Other Verified 12/31/23 13:20 pregabalin Allergy Unknown Other Verified 12/31/23 13:20 vibegron [From Gemtesa] AdvReac Other Verified 12/31/23 13:20 Review of Systems Review of Systems: Pertinent positives per HPI. Patient denies any fever, chills, rash, headache, visual changes, dizziness, cough, runny nose, sore throat, shortness of breath, chest pain, palpitations, nausea, vomiting, diarrhea, constipation, abdominal pain PMFSH Past Medical History Medical History Anxiety Benign essential hypertension Cancer of left breast Chronic cough Confusion Depression Diarrhea Gastroesophageal reflux disease History of Cutler's palsy History of completed stroke Lumbar radiculopathy Lumbar spondylosis Mixed hyperlipidemia Peripheral neuropathy Pre-diabetes Pulmonary nodule Transient ischemic attack Vascular malformation Surgical History Surgical History History of appendectomy History of cataract extraction History of left knee replacement History of left mastectomy Family History Family History Father Carcinoma of colon Mother No problems noted. Sibling Neuropathy Brain tumor Other Malignant neoplasm of prostate Social History Social History Social History: Surrogate medical decision maker: Nate Fabian, amrita. Code status: DNR. Smoking status: Never smoker Second hand tobacco smoke exposure: Yes Alcohol intake: never Drinks per week: 1 Substance use: never Do You Feel Safe in your Home?: Yes Lack of Transportation: No Lack of Food: Never True Current Housing: I Have Housing Concerned About Future Housing: No Difficulty Paying Gas/Electric Bills: No Difficulty Paying for Meds: No Currently Unemployed: No Education: High School Diploma/GED Difficulty w/ Childcare or Family Care: No [facility] Additional living arrangements comments: Independent living at [facility]. 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 Spiritual care concerns: No Comments At the time of my signature, I reviewed and agree with the nursing past medical, surgical, social, and family history. There is no relevant family history pertinent to the patient complaint. Exam Narrative: General: Well-developed, well nourished, in no apparent distress. Head: Normocephalic, atraumatic. Cardio: Regular rate and rhythm, s1 and s2 normal, no murmur appreciated. Resp: Clear to auscultation bilaterally, no rhonchi, rales, wheezing or rubs. Abdomen: Soft, pliable, bowel sounds present in all quadrants, non-tender to palpation, no organomegly, no CVAT tenderness. Course Course Emergency Course: Portions of this record may have been created with voice recognition software. Level of Care: Express Care Visit Vital Signs Vital signs: Vital signs reviewed MDM - Female Genitourinary MDM Narrative Medical decision making narrative: At the time of visit
[2024-02-17 13:08] VITALS: BP 152/70; PULSE 92; RESP 16; TEMP 36.6; O2SAT 98
[2024-02-17 13:16] LABS: EDUAAPPEAR Clear; EDUABILI Negative; EDUABLOOD Negative; EDUACOLOR1 Yellow; EDUAGLUCOSE Negative; EDUAKETONE 1+; EDUALEUKO Negative; EDUANITRATE Negative; EDUAPH 5.5; EDUAPROTEIN Trace
== END 2024-02-17 14:34 | disposition home or self-care (01) ==
PROVIDERS: Emergency Provider Nurse Practitioner Family; PCP Family Medicine
DX: R30.0 Dysuria (principal); I10 Essential (primary) hypertension; K21.9 Gastro-esophageal reflux disease without esophagitis; E78.2 Mixed hyperlipidemia; G62.9 Polyneuropathy, unspecified; Z86.73 Personal history of transient ischemic attack (TIA), and cerebral infarction without residual deficits; Z85.3 Personal history of malignant neoplasm of breast; Z90.12 Acquired absence of left breast and nipple; Z96.652 Presence of left artificial knee joint
CPT/HCPCS: 81003; 87086; 99213; G0463

== ENCOUNTER 2024-04-17 17:24 | Emergency (ER) | payer MEDICARE, BC, SELFPAY ==
--- NOTE | ~2024-04-17 | XR_ITS ---
XR chest 2V Ordering provider: Zari Lin PA-C History: 88 years Female with . SOB . Comparison: November 08, 2023 FINDINGS: MEDIASTINUM: The cardiac silhouette is not enlarged. Sliding hiatus hernia is noted. LUNGS: No infiltrates, effusions or pneumothorax. Granuloma in the right upper lobe unchanged. OTHER: No free air under the diaphragm. Degenerative changes of the spine. IMPRESSION: No acute cardiopulmonary pathology. Reviewed, dictated and finalized at location A.
[2024-04-17 17:36] VITALS: BP 186/101; PULSE 101; RESP 18; TEMP 36.5; O2SAT 100
--- NOTE | 2024-04-17 17:39 | ED.RECABL ---
HPI - Recheck/Abnormal Lab/Rx General Chief Complaint: Recheck/Abnormal Lab/Rx Stated Complaint: high blood pressure Time Seen by Provider: 04/17/24 17:39 Focused HPI: This is a 88 year old female that presents to the ER for elevated blood pressure. Her blood pressure gets checked every Saturday. Reports it was elevated to the 190s-200s today. She takes Felodipine and Losartan for hypertension. She believes she took these this morning. She lives in assisted living and is given all of her medications. Reports recently starting Mirabegron and Meloxicam. Reports some shortness of breath and feeling flushed. Denies chest pain, headache. GENERAL: Well-appearing, well-nourished, and in no acute distress. HEAD: Normocephalic, atraumatic. CHEST: Clear to auscultation. ?No respiratory distress. HEART: Regular rate and rhythm.? NEURO: ?Alert and oriented x3. Patient screened in triage and initial orders placed.? ?Additional care and disposition to be based upon?diagnostic testing and treatment. Related Data Allergies Allergy/AdvReac Type Severity Reaction Status Date / Time linaclotide [From Linzess] Allergy Mild Unknown Verified 03/16/24 13:10 neomycin Allergy Unknown Other Verified 03/16/24 13:10 pregabalin Allergy Unknown Other Verified 03/16/24 13:10 vibegron [From Gemtesa] AdvReac Other Verified 03/16/24 13:10 [facility] Past Medical History Medical History (Updated 03/16/24 @ 13:45 by Brayan Ojeda MD) Anxiety Benign essential hypertension Cancer of left breast Chronic cough Confusion Depression Diarrhea Gastroesophageal reflux disease History of Cutler's palsy History of completed stroke Lumbar radiculopathy Lumbar spondylosis Mixed hyperlipidemia Peripheral neuropathy Pre-diabetes Pulmonary nodule Thalamic pain syndrome Transient ischemic attack Vascular malformation Surgical History Surgical History History of appendectomy History of cataract extraction History of left knee replacement History of left mastectomy Family History Family History Father Carcinoma of colon Mother No problems noted. Sibling Neuropathy Brain tumor Other Malignant neoplasm of prostate Social History Social History Social History: Surrogate medical decision maker: Nate Fabian, son. Code status: DNR. Smoking status: Never smoker Second hand tobacco smoke exposure: Yes Alcohol intake: never Drinks per week: 1 Substance use: never Do You Feel Safe in your Home?: Yes Lack of Transportation: No Lack of Food: Never True Current Housing: I Have Housing Concerned About Future Housing: No Difficulty Paying Gas/Electric Bills: No Difficulty Paying for Meds: No Currently Unemployed: No Education: High School Diploma/GED Difficulty w/ Childcare or Family Care: No Living arrangements: [facility] Additional living arrangements comments: Independent living at [facility]. 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 Spiritual care concerns: No Course Vital Signs Vital signs: Vital Signs Temperature 97.7 F 04/17/24 17:36 Pulse Rate 101 H 04/17/24 17:36 Respiratory Rate 18 04/17/24 17:36 Blood Pressure 186/101 H 04/17/24 17:36 Pulse Oximetry 100 04/17/24 17:36 Oxygen Delivery Room Air 04/17/24 17:36 Temperature 97.7 F 04/17/24 17:36 Pulse Rate 101 H 04/17/24 17:36 Respiratory Rate 18 04/17/24 17:36 Blood Pressure 186/101 H 04/17/24 17:36 Pulse Oximetry 100 04/17/24 17:36 Oxygen Delivery Room Air 04/17/24 17:36 Discharge Plan Discharge Prescriptions: No Action calcium-vitamin D3-vitamin K 500-500-40 mg-unit-mcg tablet,chewable 1 tablet PO DAILY Qty: 90 0RF aspirin 81 mg Tablet,Delayed Release (Dr/Ec) 81 mg PO QAM Qty: 90 3RF benzonatate 100 mg capsule 100 mg PO TID PRN (Reason: cough) Qty: 30 0RF esomeprazole magnesium 20 mg capsule,delayed release(DR/EC) 20 mg PO DAILY Qty: 90 2RF felodipine 10 mg tablet extended release 24 hr 10 mg PO DAILY Qty: 90 1RF rosuvastatin 20 mg tablet 20 mg PO QAM Qty: 90 3RF biotin 1 mg tablet See Rx Instructions .ROUTE .COMPLEX Qty: 90 3RF Dose Instruction: TAKE ONE TABLET BY MOUTH EVERY DAY IN THE EVENING DIRECTED Rx Instructions: TAKE ONE TABLET BY MOUTH EVERY DAY IN THE EVENING DIRECTED PreserVision AREDS 4,296 mcg-226 mg-90 mg capsule 1 cap PO BID Qty: 60 5RF buspirone 10 mg tablet 10 mg PO BID Qty: 180 4RF meloxicam 15 mg tablet 15 mg PO DAILY Qty: 90 0RF losartan 50 mg tablet See Rx Instructions .ROUTE .COMPLEX Qty: 90 0RF Dose Instruction: TAKE ONE TABLET BY MOUTH EVERY DAY Rx Instructions: TAKE ONE TABLET BY MOUTH EVERY DAY mirabegron [Myrbetriq] 25 mg tablet extended release 24 hr 25 mg PO DAILY Qty: 30 4RF ferrous sulfate [FeroSul] 325 mg (65 mg iron) tablet See Rx Instructions .ROUTE .COMPLEX Qty: 14 0RF Dose Instruction: TAKE ONE TABLET BY MOUTH IN THE EVENING Rx Instructions: TAKE ONE TABLET BY MOUTH IN THE EVENING melatonin 5 mg tablet See Rx Instructions .ROUTE .COMPLEX Qty: 90 0RF Dose Instruction: TAKE ONE TABLET BY MOUTH EVERY DAY AT BEDTIME Rx Instructions: TAKE ONE TABLET BY MOUTH EVERY DAY AT BEDTIME Follow-up/Referrals: Abelino Rock MD [Primary Care Provider] -
--- NOTE | 2024-04-17 17:43 | ECG_ITS ---
Test Date: 2024-04-17 17:47:05 Measurements Intervals [place] Rate: 96 P: 43 ID: [id number] QRS: 4 QRSD: 81 T: 46 QT: 334 QTc: 422 Interpretive Statements SINUS RHYTHM POSSIBLE LEFT ATRIAL ENLARGEMENT CANNOT R/O SEPTAL INFARCT, AGE INDETERMINATE CONSIDER INFERIOR INFARCT, AGE INDETERMINATE BASELINE ARTIFACT- I, II, III, AVR, AVL, AVF ABNORMAL ECG No previous ECG available for comparison Electronically Signed On 04-17-2024 18:22:46 CDT by Alessandro Tao D.O.
[2024-04-17 17:55] LABS: Basophils Percent Auto 0.6 % (0.2-1.2); Eosinophils Absolute Auto 0.1 K/mm3 (0-0.3); Eosinophils Percent Auto 1.4 % (0-4.4); Hematocrit 41.1 % (37.0-47.0); Hemoglobin 13.7 g/dL (12.0-15.0); Immature Granulocyte Absolute 0.03 K/mm3 (0.00-0.031); Immature Granulocyte Percent A 0.4 % (0-0.5); Lymphocytes Percent Auto 25.2 % (18.3-44.2); Mean Corpuscular HGB Conc 33.3 g/dl (32-36); Mean Corpuscular Hemoglobin 31.6 pg (26-34); Mean Corpuscular Volume 94.9 fl (80-100); Mean Platelet Volume 8.9 fl (7.4-10.4); Monocytes Absolute Auto 0.7 K/mm3 (0.1-0.6); Monocytes Percent Auto 9.2 % (2.6-8.5); Neutrophils Absolute Auto 4.5 K/mm3 (1.3-6.7); Neutrophils Percent Auto 63.2 % (45.5-73.1); Platelet Count Result 288 k/mm3 (150-375); Red Blood Count 4.33 M/mm3 (4.2-5.4); Red Cell Distribution Width 12.3 % (11.5-14.5); White Blood Count 7.2 K/mm3 (4.5-10.0)
[2024-04-17 18:05] LABS: INR 0.9; Prothrombin Time 12.5 Seconds (11.1-14.7)
[2024-04-17 18:14] LABS: Alanine Aminotransferase 29 U/L (6-35); Albumin Level 4.5 g/dL (3.5-5.1); Alkaline Phosphatase 81 U/L (38-126); Anion Gap 6 mmol/L (4-12); Aspartate Amino Transferase 30 U/L (14-36); Bilirubin,Total 0.5 mg/dL (0.2-1.3); Blood Urea Nitrogen 17 mg/dL (7-17); Calcium 9.8 mg/dL (8.4-10.2); Carbon Dioxide 31 mmol/L (22-30); Chloride 97 mmol/L (98-107); Estimated CRCL calculation 40 ml/min; Estimated Glomerular Filt Rate > 60; Glucose 129 mg/dL (65-110); Potassium 4.4 mmol/L (3.4-5.0); Sodium 134 mmol/L (137-145)
[2024-04-17 18:23] LABS: NT Pro B Type Natriuretic Pept 144 pg/mL (19.9-100)
--- NOTE | 2024-04-17 19:14 | ED_ITS ---
HPI - Recheck/Abnormal Lab/Rx General Chief Complaint: Recheck/Abnormal Lab/Rx Stated Complaint: high blood pressure Time Seen by Provider: 04/17/24 17:39 Source: patient History of Present Illness HPI narrative: 88 YEARS OLD WHITE FEMALE CAME FROM [facility] WITH ELEVATED BLOOD PRESSURE. SHE IS TELLING ME THAT SHE CHECKED HER BLOOD PRESSURE ONCE A WEEK, BLOOD PRESSURE WAS 212 OVER HIGH NUMBER, PATIENT WAS ASYMPTOMATIC, DID NOT RECEIVE ANY MEDICATION AT THAT TIME, CAME TO OUR EMERGENCY ROOM WITH BLOOD PRESSURE 186/101. PATIENT DENIES ANY FEVER, CHILLS, NAUSEA, VOMITING, CHEST PAIN, SHORTNESS OF BREATH, HEADACHE, BACK PAIN OR ABDOMINAL PAIN. PATIENT GOT ANXIOUS ABOUT ELEVATED BLOOD PRESSURE AND SHE HAD NUMBNESS OF THE FACE AFTER 5 FIND OUT THAT HER BLOOD PRESSURE IS HIGH. Related Data Allergies Allergy/AdvReac Type Severity Reaction Status Date / Time linaclotide [From Linzess] Allergy Mild Unknown Verified 03/16/24 13:10 neomycin Allergy Unknown Other Verified 03/16/24 13:10 pregabalin Allergy Unknown Other Verified 03/16/24 13:10 vibegron [From Gemtesa] AdvReac Other Verified 03/16/24 13:10 Review of Systems Review of Systems: All systems reviewed & are unremarkable except as noted in HPI and below PMFSH Past Medical History Medical History Anxiety Benign essential hypertension Cancer of left breast Chronic cough Confusion Depression Diarrhea Gastroesophageal reflux disease History of Cutler's palsy History of completed stroke Lumbar radiculopathy Lumbar spondylosis Mixed hyperlipidemia Peripheral neuropathy Pre-diabetes Pulmonary nodule Thalamic pain syndrome Transient ischemic attack Vascular malformation Surgical History Surgical History History of appendectomy History of cataract extraction History of left knee replacement History of left mastectomy Family History Family History Father Carcinoma of colon Mother No problems noted. Sibling Neuropathy Brain tumor Other Malignant neoplasm of prostate Social History Social History Social History: Surrogate medical decision maker: Nate Fabian, son. Code status: DNR. Smoking status: Never smoker Second hand tobacco smoke exposure: Yes Alcohol intake: never Drinks per week: 1 Substance use: never Do You Feel Safe in your Home?: Yes Lack of Transportation: No Lack of Food: Never True Current Housing: I Have Housing Concerned About Future Housing: No Difficulty Paying Gas/Electric Bills: No Difficulty Paying for Meds: No Currently Unemployed: No Education: High School Diploma/GED Difficulty w/ Childcare or Family Care: No Living arrangements: [facility] Additional living arrangements comments: Independent living at [facility]. 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 Spiritual care concerns: No Exam Narrative: GENERAL APPEARANCE: WELL-DEVELOPED, WELL-NOURISHED SKIN: NORMAL COLOR HEAD: NORMOCEPHALIC, NONTRAUMATIC EYES: CLEAR CONJUNCTIVA ENT: OROPHARYNX NORMAL, EARS NORMAL, NOSE NORMAL NECK: SUPPLE, NONTENDER CHEST AND RESPIRATORY: AIRWAY PATENT, NO RESPIRATORY DISTRESS, NO ACCESSORY MUSCLE USE HEART: REGULAR RATE/RHYTHM ABDOMEN: SOFT, NONTENDER, NO ORGANOMEGALY, QUIET BOWEL SOUNDS VASCULAR: NORMAL PERIPHERAL PULSES, NORMAL CAPILLARY REFILL. 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, NO GROSS MOTOR DEFICIT Course Vital Signs Vital signs: Vital Signs Temperature 36.5 C 04/17/24 17:36 Pulse Rate 101 H 04/17/24 17:36 Respiratory Rate 18 04/17/24 17:36 Blood Pressure 186/101 H 04/17/24 17:36 Pulse Oximetry 100 04/17/24 17:36 Oxygen Delivery Room Air 04/17/24 17:36 Temperature 36.5 C 04/17/24 17:36 Pulse Rate 80 04/17/24 19:27 Respiratory Rate 17 04/17/24 19:27 Blood Pressure 163/63 H 04/17/24 19:27 Pulse Oximetry 98 04/17/24 19:27 Oxygen Delivery Room Air 04/17/24 18:15 MDM - Recheck/Abnormal Lab/Rx MDM Narrative Medical decision making narrative: DIFFERENTIAL DIAGNOSIS INCLUDE ANXIETY, INSOMNIA, STRESS REACTION. PATIENT BLOOD PRESSURE AT THE [facility]ED [facility] WAS 212 OVER HIGH NUMBER, ON ARR IVAL TO THE ED 186/101, 1 A1C THE PATIENT WAS 163/63. PATIENT DID NOT RECEIVE ANY MEDICATIONS AT THE ASSISTING LIVING OR ON ARRIVAL TO OUR EMERGENCY ROOM. CURRENTLY PATIENT IS ASYMPTOMATIC, BLOOD WORKUP TODAY SHOWED NO ACUTE ABNORMALITIES Lab Data 04/17/24 17:47 04/17/24 17:47 Labs: Lab Results 04/17/24 04/17/24 Range/Units 17:47 17:47 WBC 7.2 (4.5-10.0) K/mm3 RBC 4.33 (4.2-5.4) M/mm3 Hgb 13.7 (12.0-15.0) g/dL Hct 41.1 (37.0-47.0) % MCV 94.9 (80-100) fl MCH 31.6 (26-34) pg MCHC 33.3 (32-36) g/dl RDW 12.3 (11.5-14.5) % Plt Count 288 (150-375) k/mm3 MPV 8.9 (7.4-10.4) fl Immature Gran % (Auto) 0.4 (0-0.5) % Neut % (Auto) 63.2 (45.5-73.1) % Lymph % (Auto) 25.2 (18.3-44.2) % Geary % (Auto) 9.2 H (2.6-8.5) % Eos % (Auto) 1.4 (0-4.4) % Baso % (Auto) 0.6 (0.2-1.2) % Lymph # (Auto) 1.80 (0.9-3.2) K/mm3 Geary # (Auto) 0.7 H (0.1-0.6) K/mm3 Eos # (Auto) 0.1 (0-0.3) K/mm3 Baso # (Auto) 0.0 (0.0-0.1) K/mm3 Abs Immat Gran (auto) 0.03 (0.00-0.031) K/mm3 Absolute Neuts (auto) 4.5 (1.3-6.7) K/mm3 Absolute Nucleated RBC 0.000 (0.0-0.012) K/mm3 Nucleated RBC % 0.0 (0.0-0.2) % PT 12.5 (11.1-14.7) Seconds INR 0.9 APTT 26.0 (22.3-36.8) Seconds Sodium 134 L (137-145) mmol/L Potassium 4.4 (3.4-5.0) mmol/L Chloride 97 L (98-107) mmol/L Carbon Dioxide 31 H (22-30) mmol/L Anion Gap 6 (4-12) mmol/L BUN 17 (7-17) mg/dL Creatinine 0.70 (0.7-1.0) mg/dL Estim Creat Clear Calc 40 ml/min Estimated GFR > 60 (59 - ) Glucose 129 H (65-110) mg/dL Calcium 9.8 (8.4-10.2) mg/dL Total Bilirubin 0.5 (0.2-1.3) mg/dL AST 30 (14-36) U/L ALT 29 (6-35) U/L Alkaline Phosphatase 81 (38-126) U/L NT-Pro-B Natriuret Pep 144 H Cancelled (19.9-100) pg/mL Total Protein 8.0 (6.3-8.2) g/dL Albumin 4.5 (3.5-5.1) g/dL Discharge Plan Discharge Clinical Impression: Hypertension, uncontrolled Patient Disposition: [facility] Condition: Improved Instructions: Hypertension in the Older Adult (ED) Additional Instructions: RETURN IF SYMPTOMS ARE WORSENING , CALL YOUR FAMILY PHYSICIAN FOR APPOINTMENT, TAKE TYLENOL NEEDED FOR ACHES AND PAIN, CONTINUE HOME MEDICATIONS. TAKE CLONIDINE 0.1 MG P.O. NEEDED MAXIMUM TWICE A DAY, IF SYSTOLIC BLOOD PRESSURE 170 OR ABOVE. Prescriptions: New clonidine HCl 0.1 mg tablet 0.1 mg PO ONCE PRN (Reason: hypertensive emergency) Qty: 30 0RF Rx Instructions: TAKE 1 TABLET NEEDED FOR SYSTOLIC BLOOD PRESSURE 170 AND ABOVE MAXIMUM 2 TABLETS A DAY. No Action calcium-vitamin D3-vitamin K 500-500-40 mg-unit-mcg tablet,chewable 1 tablet PO DAILY Qty: 90 0RF aspirin 81 mg Tablet,Delayed Release (Dr/Ec) 81 mg PO QAM Qty: 90 3RF benzonatate 100 mg capsule 100 mg PO TID PRN (Reason: cough) Qty: 30 0RF esomeprazole magnesium 20 mg capsule,delayed release(DR/EC) 20 mg PO DAILY Qty: 90 2RF felodipine 10 mg tablet extended release 24 hr 10 mg PO DAILY Qty: 90 1RF rosuvastatin 20 mg tablet 20 mg PO QAM Qty: 90 3RF biotin 1 mg tablet See Rx Instructions .ROUTE .COMPLEX Qty: 90 3RF Dose Instruction: TAKE ONE TABLET BY MOUTH EVERY DAY IN THE EVENING DIRECTED Rx Instructions: TAKE ONE TABLET BY MOUTH EVERY DAY IN THE EVENING DIRECTED PreserVision AREDS 4,296 mcg-226 mg-90 mg capsule 1 cap PO BID Qty: 60 5RF buspirone 10 mg tablet 10 mg PO BID Qty: 180 4RF meloxicam 15 mg tablet 15 mg PO DAILY Qty: 90 0RF losartan 50 mg tablet See Rx Instructions .ROUTE .COMPLEX Qty: 90 0RF Dose Instruction: TAKE ONE TABLET BY MOUTH EVERY DAY Rx Instructions: TAKE ONE TABLET BY MOUTH EVERY DAY mirabegron [Myrbetriq] 25 mg tablet extended release 24 hr 25 mg PO DAILY Qty: 30 4RF ferrous sulfate [FeroSul] 325 mg (65 mg iron) tablet See Rx Instructions .ROUTE .COMPLEX Qty: 14 0RF Dose Instruction: TAKE ONE TABLET BY MOUTH IN THE EVENING Rx Instructions: TAKE ONE TABLET BY MOUTH IN THE EVENING melatonin 5 mg tablet See Rx Instructions .ROUTE .COMPLEX Qty: 90 0RF Dose Instruction: TAKE ONE TABLET BY MOUTH EVERY DAY AT BEDTIME Rx Instructions: TAKE ONE TABLET BY MOUTH EVERY DAY AT BEDTIME Follow-up/Referrals: Abelino Rock MD [Primary Care Provider] -
[2024-04-17 19:27] VITALS: BP 163/63; PULSE 80; RESP 17; O2SAT 98
[2024-04-17 19:50] VITALS: BP 163/63; PULSE 80; RESP 17; O2SAT 99
== END 2024-04-17 19:55 ==
PROVIDERS: Physician Assistant; Emergency Provider Emergency Medicine; PCP Family Medicine
DX: I10 Essential (primary) hypertension (principal); E78.2 Mixed hyperlipidemia; R73.03 Prediabetes; G62.9 Polyneuropathy, unspecified; K21.9 Gastro-esophageal reflux disease without esophagitis; Z66 Do not resuscitate; Z96.652 Presence of left artificial knee joint; Z85.3 Personal history of malignant neoplasm of breast; Z86.73 Personal history of transient ischemic attack (TIA), and cerebral infarction without residual deficits; Z98.49 Cataract extraction status, unspecified eye; Z90.12 Acquired absence of left breast and nipple; Z79.899 Other long term (current) drug therapy; Z79.82 Long term (current) use of aspirin; R94.31 Abnormal electrocardiogram [ECG] [EKG]
CPT/HCPCS: 36415; 71046; 80053; 83880; 85025; 85610; 85730; 93005; 99283

== ENCOUNTER 2024-05-25 14:33 | Outpatient (CLI) | payer MEDICARE, BC, SELFPAY ==
--- NOTE | ~2024-05-25 | CT_ITS ---
Noncontrast CT scan of the cervical spine Technique: Multiple contiguous axial [address] images of the cervical spine were obtained and rec onstructed in 2D sagittal and coronal planes on the acquisition scanner. Dose reduction technique was used on this scan by utilizing automated exposure control, adjustment of the mA and/or kV according to patient size. The dose-length product (DLP) was 127.14 mGy-cm. Clinical History: Pain Findings: No fracture or subluxation. Vertebral bodies maintain normal height and alignment. At C2-C3, there is no definite disc bulge or herniation. No definite spinal canal stenosis or neural foraminal narrowing. At C3-C4, there is advanced degenerative disc 9. There is minimal disc osteophyte convex. No canal st enosis or cord compression. There is probable mild left neural foraminal narrowing. Right neural fora men preserved. At C4-C5, there is severe degenerative disc narrowing. There is mild disc osteophyte complex without canal stenosis or cord compression. There is bilateral neural foraminal narrowing, right worse than l eft. At C5-C6, there is severe degenerative disc narrowing. No canal stenosis or cord compression. There i s bilateral neural foraminal narrowing, right worse than left. At C6-C7, there is severe degenerative disc narrowing. No canal stenosis or cord compression. There i s bilateral neural foraminal narrowing. There is extensive uncovertebral degenerative change throughout the cervical spine. No prevertebral soft tissue swelling. Paravertebral soft tissues are unremarkable. Impression: No fracture or subluxation of the cervical spine. Moderate to advanced degenerative spondylosis of the cervical spine, as above. Reviewed, dictated and finalized at [facility]. [employer]MENT [employer]TER Impression: No fracture or subluxation of the cervical spine. Moderate to advanced degenerative spondylosis of the cervical spine, as above.
--- NOTE | ~2024-05-25 | US_ITS ---
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 TECHNIQUE: Multiple ultrasound images of the thyroid were obtained. COMPARISON: None. FINDINGS: The right thyroid lobe measures 3.4 x 1.1 x 1.8 cm. The left thyroid lobe measures 4.4 x 1.0 x 1.6 c m. No significant interval change in a 1.1 cm solid wider than tall isoechoic right thyroid nodule w ith smooth to ill-defined margins and without echogenic foci (TI-RADS 3, mildly suspicious , FNA if > =2.5 cm, annual followup is >=1.5 cm). 1 mm increase in size of a now 1 cm solid wider than tall hypo echoic nodule also smooth to ill-defined margins and without echogenic foci at the inferior right thy roid lobe (TI-RADS 4, moderately suspicious , FNA if >=1.5 cm, annual followup is >=1 cm). 6 mm solid wider than tall nodule with smooth margins and without echogenic foci in the left thyroid lobe, also TI RADS 4. 1.2 cm solid wider than tall isoechoic nodule with smooth margins inferior to this most l ikely within a pyramidal lobe, also TI-RADS 3. IMPRESSION: 1. Multinodular goiter with a few 1.1 cm or smaller TI RADS3 and TI-RADS 4 nodules for which annual u ltrasound follow-up would be recommended. Reviewed, dictated and finalized at location A. COMPTROLLER IMPRESSION: 1. Multinodular goiter with a few 1.1 cm or smaller TI RADS3 and TI-RADS 4 nodu les for which annual ultrasound follow-up would be recommended.
== END 2024-05-25 14:34 | disposition home or self-care (01) ==
PROVIDERS: PCP Family Medicine; Visit Provider Nurse Practitioner Family
DX: E04.2 Nontoxic multinodular goiter (principal); M47.892 Other spondylosis, cervical region
CPT/HCPCS: 72125; 76536

== ENCOUNTER 2024-10-31 19:35 | Emergency (ER) | payer MEDICARE, BC, SELFPAY ==
--- NOTE | ~2024-10-31 | XR_ITS ---
XR chest 1V Ordering provider: Duarte Malloy MD History: 89 years Female with . CHEST PAIN . . Comparison: April 17, 2024 FINDINGS: MEDIASTINUM: The cardiac silhouette is slightly enlarged. Prominent humberto. LUNGS: No infiltrates, effusions or pneumothorax. Underlying fibrotic changes. Granulomas in the right midzone. OTHER: No free air under the diaphragm. IMPRESSION: No acute cardiopulmonary pathology. Reviewed, dictated and finalized at location A.
--- NOTE | 2024-10-31 19:37 | ECG_ITS ---
Test Date: 2024-10-31 20:09:08 Measurements Intervals [place] Rate: 60 P: 37 MT: 185 QRS: 1 QRSD: 76 T: 27 QT: 407 QTc: 407 Interpretive Statements SINUS RHYTHM WITH SINUS ARRHYTHMIA POSSIBLE LEFT ATRIAL ENLARGEMENT [-0.1mV P-WAVE IN V1/V2] POSSIBLE LEFT VENTRICULAR HYPERTROPHY [VOLTAGE CRITERIA PLUS LAE OR QRS WIDENING] POSSIBLE ANTEROSEPTAL MYOCARDIAL INFARCTION , OF INDETERMINATE AGE [30 ms Q WAVE IN V1-V4] ABNORMAL ECG Compared to ECG 04/17/2024 17:47:05 No significant changes Electronically Signed On 11-01-2024 08:08:26 CDT by Kishan Perrin M.D.
[2024-10-31 19:47] VITALS: BP 171/61; PULSE 61; RESP 20; O2SAT 94
[2024-10-31 19:49] VITALS: BP 171/61; PULSE 63; RESP 14; TEMP 36.6; O2SAT 95
--- NOTE | 2024-10-31 19:53 | ED_ITS ---
HPI - Chest Pain General Chief Complaint: Chest Pain Stated Complaint: chest pain Time Seen by Provider: 10/31/24 19:46 History of Present Illness HPI narrative: Patient presenting here with 30 minutes of chest pain central chest that is nonradiating, without shortness of breath or nausea, started at intermediate while she was doing puzzles, and has now gone away completely. Related Data Allergies Allergy/AdvReac Type Severity Reaction Status Date / Time linaclotide (From Linzess) Allergy Mild Unknown Verified 10/31/24 19:41 neomycin Allergy Unknown Other Verified 10/31/24 19:41 pregabalin Allergy Unknown Other Verified 10/31/24 19:41 vibegron (From Gemtesa) AdvReac Other Verified 10/31/24 19:41 Review of Systems 2 Review of Systems: All systems reviewed & are unremarkable except as noted in HPI and below PMFSH Past Medical History Medical History Anxiety Benign essential hypertension Cancer of left breast Chronic cough Confusion Depression Diarrhea Gastroesophageal reflux disease History of Cutler's palsy History of completed stroke Lumbar radiculopathy Lumbar spondylosis Mixed hyperlipidemia Peripheral neuropathy Pre-diabetes Pulmonary nodule Thalamic pain syndrome Transient ischemic attack Vascular malformation Surgical History Surgical History History of appendectomy History of cataract extraction History of left knee replacement History of left mastectomy Family History Family History Father Carcinoma of colon Mother No problems noted. Sibling Neuropathy Brain tumor Other Malignant neoplasm of prostate Social History Social History Social History: Surrogate medical decision maker: Nate Fabian, son. Code status: DNR. Smoking status: Never smoker Second hand tobacco smoke exposure: Yes Alcohol intake: never Drinks per week: 1 Substance use: never Do You Feel Safe in your Home?: Yes Lack of Transportation: No Lack of Food: Never True Current Housing: I Have Housing Concerned About Future Housing: No Difficulty Paying Gas/Electric Bills: No Difficulty Paying for Meds: No Currently Unemployed: No Education: High School Diploma/GED Difficulty w/ Childcare or Family Care: No Living arrangements: [facility] Additional living arrangements comments: Independent living at [facility]. 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 Spiritual care concerns: No Exam 2 Narrative: EXAMINATION OF ORGAN SYSTEMS/BODY AREAS: Constitutional: Vital signs per nursing GENERAL:[No acute distress, non-toxic appearing.] HEAD: Normal with no signs of head trauma. EYES: EOMI, conjunctiva normal ENT: Hearing grossly intact LUNGS: Nonlabored breathing. Clear to auscultation bilaterally HEART: [Regular rate and rhythm], normal equal radial and DP pulses ABD: [Soft], [nontender to palpation] EXT: Normal range of motion SKIN: [No rashes or lesions.] NEURO: [Alert and oriented x 3. No gross focal sensory or strength deficits.] PSYCH: Normal affect Course Vital Signs Vital signs: Vital Signs Pulse Rate 61 10/31/24 19:47 Respiratory Rate 20 10/31/24 19:47 Blood Pressure 171/61 H 10/31/24 19:47 Pulse Oximetry 94 10/31/24 19:47 Temperature 97.9 F 10/31/24 19:49 Pulse Rate 62 10/31/24 22:08 Respiratory Rate 19 10/31/24 22:08 Blood Pressure 154/64 H 10/31/24 22:08 Pulse Oximetry 98 10/31/24 22:08 Oxygen Delivery Room Air 10/31/24 19:49 MDM - Chest Pain MDM Narrative Medical decision making narrative: ED COURSE AND MEDICAL DECISION MAKINF presenting with chest pain. She is very well-appearing here in no distress and pain has resolved. EKG done in triage negative for acute ischemic changes. Cardiac workup is initiated. EKG: Performed in triage and interpreted by me. Normal sinus rhythm. Rate 60. Normal axis. MT normal. QRS duration normal. QTc normal. No pathologic Q waves. No ST segment elevation or depression to suggest acute ischemia. No RV strain pattern. HEART score is 2 with no acute ischemic changes on EKG and negative troponin making ACS unlikely. No DVT symptoms or shortness of breath making PE unlikely. Presentation not consistent with dissection or aneurysm without radiation of pain or pulse deficits. CXR negative for mediastinal widening. No abdominal pain or signs of sepsis that would be concerning for esophageal perforation or mediastinitis. No cardiomegaly or JVD to suggest pericardial effusion/tamponade. Repeat troponin still negative. On repeat evaluation just prior to discharge, the patient is no acute distress. I had a long discussion with the patient and with shared decision making, she is comfortable with outpatient management. She was given clear return instructions by myself in person as well as on discharge paperwork. Procedures: Pulse oximetry interpretation - not hypoxic. EKG interpretation. Review of medical records. Lab Data 10/31/24 19:47 10/31/24 19:47 Labs: Lab Results 10/31/24 10/31/24 Range/Units 19:47 21:38 WBC 7.8 (4.5-10.0) K/mm3 RBC 3.99 L (4.2-5.4) M/mm3 Hgb 12.5 (12.0-15.0) g/dL Hct 39.5 (37.0-47.0) % MCV 99.0 (80-100) fl MCH 31.3 (26-34) pg MCHC 31.6 L (32-36) g/dl RDW 11.8 (11.5-14.5) % Plt Count 285 (150-375) k/mm3 MPV 8.9 (7.4-10.4) fl Immature Gran % (Auto) 0.4 (0-0.5) % Neut % (Auto) 60.4 (45.5-73.1) % Lymph % (Auto) 24.9 (18.3-44.2) % [place] % (Auto) 12.8 H (2.6-8.5) % Eos % (Auto) 1.1 (0-4.4) % Baso % (Auto) 0.4 (0.2-1.2) % Lymph # (Auto) 1.95 (0.9-3.2) K/mm3 [place] # (Auto) 1.0 H (0.1-0.6) K/mm3 Eos # (Auto) 0.1 (0-0.3) K/mm3 Baso # (Auto) 0.0 (0.0-0.1) K/mm3 Abs Immat Gran (auto) 0.03 (0.00-0.031) K/mm3 Absolute Neuts (auto) 4.7 (1.3-6.7) K/mm3 Absolute Nucleated RBC 0.000 (0.0-0.012) K/mm3 Nucleated RBC % 0.0 (0.0-0.2) % PT 12.4 (11.1-14.7) Seconds INR 0.9 APTT 24.5 (22.3-36.8) Seconds Sodium 132 L (137-145) mmol/L Potassium 4.3 (3.4-5.0) mmol/L Chloride 95 L (98-107) mmol/L Carbon Dioxide 31 H (22-30) mmol/L Anion Gap 6 (4-12) mmol/L BUN 22 H (7-17) mg/dL Creatinine 0.70 (0.7-1.0) mg/dL Estim Creat Clear Calc 37 ml/min Estimated GFR > 60 (59 - ) Glucose 89 (65-110) mg/dL Calcium 9.4 (8.4-10.2) mg/dL Total Bilirubin 0.4 (0.2-1.3) mg/dL AST 32 (14-36) U/L ALT 22 (6-35) U/L Alkaline Phosphatase 56 (38-126) U/L Troponin I < 0.012 < 0.012 (0.000-0.034) ng/mL Total Protein 7.0 (6.3-8.2) g/dL Albumin 4.2 (3.5-5.1) g/dL Lipase 242 (23-300) U/L Discharge Plan Discharge Clinical Impression: Chest pain Patient Disposition: [place] Snf/Asst Living Condition: Stable Instructions: Chest Pain (ED) Additional Instructions: Please follow up with your doctor; you can always return for any further issues. Patient Language: Danish Prescriptions: No Action calcium-vitamin D3-vitamin K 500-500-40 mg-unit-mcg tablet,chewable 1 tablet PO DAILY Qty: 90 0RF losartan 100 mg tablet 100 mg PO DAILY Qty: 90 0RF clonidine HCl 0.1 mg tablet 0.1 mg PO ONCE PRN (Reason: hypertensive emergency) Qty: 30 0RF Rx Instructions: TAKE 1 TABLET NEEDED FOR SYSTOLIC BLOOD PRESSURE 170 AND ABOVE MAXIMUM 2 TABLETS A DAY. aspirin 81 mg Tablet,Delayed Release (Dr/Ec) 81 mg PO QAM Qty: 90 3RF esomeprazole magnesium 20 mg capsule,delayed release(DR/EC) 20 mg PO DAILY Qty: 90 2RF felodipine 10 mg tablet extended release 24 hr 10 mg PO DAILY Qty: 90 1RF rosuvastatin 20 mg tablet 20 mg PO QAM Qty: 90 3RF biotin 1 mg tablet See Rx Instructions .ROUTE .COMPLEX Qty: 90 3RF Dose Instruction: TAKE ONE TABLET BY MOUTH EVERY DAY IN THE EVENING DIRECTED Rx Instructions: TAKE ONE TABLET BY MOUTH EVERY DAY IN THE EVENING DIRECTED PreserVision AREDS 4,296 mcg-226 mg-90 mg capsule 1 cap PO BID Qty: 60 5RF mirabegron [Myrbetriq] 25 mg tablet extended release 24 hr 25 mg PO DAILY Qty: 30 4RF hydrocortisone 1 % cream 1 applic topical BID PRN (Reason: rash) Qty: 28.35 0RF biotin 1,000 mcg tablet,chewable 1,000 mcg PO DAILY Qty: 90 0RF meloxicam 15 mg tablet 15 mg PO DAILY Qty: 90 0RF vitamin B complex Capsule 1 cap PO DAILY Qty: 1 0RF Rx Instructions: OTC ferrous sulfate [FeroSul] 325 mg (65 mg iron) tablet 325 mg PO DAILY Qty: 90 0RF buspirone 15 mg tablet 15 mg PO BID Qty: 60 2RF nebivolol [Bystolic] 20 mg tablet 20 mg PO DAILY Qty: 90 0RF tramadol 50 mg tablet 50 mg PO BID PRN (Reason: pain) Qty: 60 0RF docusate sodium 100 mg capsule 100 mg PO DAILY Qty: 90 0RF loratadine [Claritin] 10 mg tablet 10 mg PO DAILY Qty: 30 0RF senna 8.6 mg capsule 8.6 mg PO DAILY PRN (Reason: constipation) Qty: 90 0RF eszopiclone [Lunesta] 2 mg tablet 2 mg PO QHS Qty: 30 0RF Follow-up/Referrals: Abelino Rock MD [Primary Care Provider] - 2 Days
[2024-10-31 19:55] LABS: Basophils Percent Auto 0.4 % (0.2-1.2); Eosinophils Absolute Auto 0.1 K/mm3 (0-0.3); Eosinophils Percent Auto 1.1 % (0-4.4); Hematocrit 39.5 % (37.0-47.0); Hemoglobin 12.5 g/dL (12.0-15.0); Immature Granulocyte Absolute 0.03 K/mm3 (0.00-0.031); Immature Granulocyte Percent A 0.4 % (0-0.5); Lymphocytes Absolute Auto 1.95 K/mm3 (0.9-3.2); Lymphocytes Percent Auto 24.9 % (18.3-44.2); Mean Corpuscular HGB Conc 31.6 g/dl (32-36); Mean Corpuscular Hemoglobin 31.3 pg (26-34); Mean Platelet Volume 8.9 fl (7.4-10.4); Monocytes Percent Auto 12.8 % (2.6-8.5); Neutrophils Absolute Auto 4.7 K/mm3 (1.3-6.7); Neutrophils Percent Auto 60.4 % (45.5-73.1); Platelet Count Result 285 k/mm3 (150-375); Red Blood Count 3.99 M/mm3 (4.2-5.4); Red Cell Distribution Width 11.8 % (11.5-14.5); White Blood Count 7.8 K/mm3 (4.5-10.0)
[2024-10-31 20:02] LABS: Alanine Aminotransferase 22 U/L (6-35); Albumin Level 4.2 g/dL (3.5-5.1); Alkaline Phosphatase 56 U/L (38-126); Anion Gap 6 mmol/L (4-12); Aspartate Amino Transferase 32 U/L (14-36); Bilirubin,Total 0.4 mg/dL (0.2-1.3); Blood Urea Nitrogen 22 mg/dL (7-17); Calcium 9.4 mg/dL (8.4-10.2); Carbon Dioxide 31 mmol/L (22-30); Chloride 95 mmol/L (98-107); Estimated CRCL calculation 37 ml/min; Estimated Glomerular Filt Rate > 60; Glucose 89 mg/dL (65-110); Lipase 242 U/L (23-300); Potassium 4.3 mmol/L (3.4-5.0); Sodium 132 mmol/L (137-145)
[2024-10-31 20:03] LABS: INR 0.9; Prothrombin Time 12.4 Seconds (11.1-14.7)
[2024-10-31 20:04] LABS: Partial Thromboplastin Time 24.5 Seconds (22.3-36.8)
[2024-10-31 20:14] LABS: Troponin I < 0.012 ng/mL (0.000-0.034)
--- OUTSIDE RECORDS SUMMARY | 2024-10-31 20:15 | XMS_ITS | Encounter Summary ---
Author Organization [facility] Address [address] [place] [address] Phone Care Team Providers Care Senior Hadoop Developer Name Role Phone Colton Osullivan MD Primary Care Provider Rick Mcqueen DO Unavailable [phone] Reason for Visit * Reason Comments Medication Refill Encounter Details Date Type Department Care Team (Late st Contact Info) Description 08/21/2020 Refill [facility] - G[facility]enterology - [address] [place] [id number] Rikc Mcqueen, DO [address] [place] [address] [place] [address] Medication Refill Social History Tobacco Use Types Packs/Day Years Used Date Smoking Tobacco: Never Smokeless Tobacco: Never Alcohol Use Standard Drinks/Week Comments Yes 0 (1 standard drink = 0.6 oz pur e alcohol) Very Little Comments No Sex and Gender Information Value Date Recorded Sex Assigned at Not on file Legal Sex Female 11:38 PM CDT Gender Identity Not on file Sexual Orientation Not on file Occupation Industry Job Start Date Job End Date retired Not on file Not on file Not on file documented as of this encounter Miscellaneous Notes * Telephone Encounter - Rayna Vasquez CMA - 08/22/2020 8:23 AM 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
--- OUTSIDE RECORDS SUMMARY | 2024-10-31 20:15 | XMS_ITS | Patient Health Record ---
Author Organization [facility] [employer] [facility] Address [address] [place] [address] Care Team Providers Care Meal Grinder Tender Name Role Phone HERNAN SANFORD MD Primary Care Provider Unavail able Sterling Gilbert Unavailable [phone] Migration, Provider Unavailable Unavailable Allergies Allergen (clinical drug ingredient) Drug/Non Drug Allergy documented on EMR Reaction Allergy Type Onset Date Status pregabalin Lyrica Unknown Drug Allergy 01/19/2021 Activ e pregabalin Pregabalin Unknown Drug Allergy 01/19/2021 Acti ve Triple Antibiotic Unknown Drug Allergy Active neomycin Neomycin Unknown Drug Allergy 01/19/2021 Active Results Component Value Reference Range Notes UDT Reviewed date:01/20/2024 02:50:29 PM Interpretation: Performing Lab: Notes/Report: THC N 0 - 50 ng/ml Cocaine N 0 - 300 ng/ml Amphetamine N 0 - 1000 ng/ml Buprenorphine (BUP) N 0 - 10 ng/ml Secobarbital (Bar) N 0 - 300 ng/ml Oxazepam (BZO) N 0 - 300 ng/ml 4-tdsqavwlpf-7,3-xopfvbxj-2,3-diphenylpyrrolidine (DINO P) N 0 - 300 ng/ml Methamphetamine (MET) N 0 - 1000 ng/ml Methylenedioxymethamphetamine (MDMA) N 0 - 500 ng/ml Morphine (MOP 300/[id number]) N 0 - 300 ng/ml Methadone (MTD) N 0 - 300 ng/ml Phencyclidine (PCP) N 0 - 25 ng/ml Nortriptyline (TCA) N 0 - 1000 ng/ml Oxycodone N 0 - 300 ng/ml x N 0 - 300 ng/ml Reason For Referral No Information Medications Medication SIG (Take, Route, Frequency, Duration) Notes Start Date End Date Status Benzonatate 100 MG TAKE 1 CAPSULE BY [facility] THREE TIMES DAILY NEEDED FOR COUGH Oral for 10 Days Active busPIRone HCl 15 MG 1 tablet Oral Twice a day Active Melatonin 5 MG 1 tablet in the even ing Orally Once a day Active Rosuvastatin Calcium 20 MG TAKE 1 TABLET BY MOUTH EVERY MORNING Oral for 90 Days Active Aspirin Low Dose 81 MG TAKE 1 TABLET BY MOUTH EVERY MORNING Oral for 90 Days Active Esomeprazole Magnesium 20 MG TAKE 1 CAPSULE BY MOUTH DAILY Oral for 90 Days Active Losartan Potassium 50 MG TAKE 1 TABLET B Y MOUTH DAILY Oral for 90 Days Active Celecoxib 200 MG Oral for 14 Days Active Felodipine ER 10 MG TAKE 1 TABLET BY DARIUS TH DAILY Oral for 90 Days Active Immunizations Vaccine Route Administration Date Status Comme nts Influenza, high dose seasonal Unknown 03/21/2015 Admini stered Influenza, high dose seasonal Unknown 02/22/2016 Admini stered Influenza, high dose seasonal Unknown 02/26/2017 Admini stered Influenza, high dose seasonal Unknown 03/07/2019 Admini stered Influenza, seasonal, injecta ble, preservative free, 3 yrs and above Unknown 02/25/2013 Administered Influenza, seasonal, injecta ble, preservative free, 3 yrs and above Unknown 03/04/2014 Administered Influenza, unspecified formulation Unknown 03/05/2012 A dministered Infuenza, trivalent, recombi nant, preservative free Unknown 03/20/2018 Administered Pfizer Biontech Covid-19 Vac cine 2nd dose Unknown 06/22/2020 Administered Pfizer Biontech Covid-19 Vac cine 2nd dose Unknown 07/13/2020 Administered Pneumococcal conjugate PCV 13 Unknown 05/01/2015 Admini stered Pneumococcal polysaccharide PPV23 Unknown 03/07/2019 Ad ministered Zoster Unknown 03/07/2019 Administered Zoster Unknown 05/19/2019 Administered Social History Tobacco Use: Social History Observation Description Date Details (start date - stop date) Never Smoker NA - NA Sex Assigned At : Social History Observation Description Sex Assigned At Female Tobacco Control (Standard) Question Answer Notes Tobacco use: Nonsmoker Vital Signs Heart Rate 94 /min 01/20/2024 Height-cm 162.61 cm 01/20/2024 Blood pressure diastolic 89 mm Hg 01/20/2024 Weight-kg 57.24 kg 01/20/2024 Height 64.02 in 01/20/2024 Blood pressure systolic 186 mm Hg 01/20/2024 Weight 126.2 lbs 01/20/2024 BMI 21.65 kg/m2 01/20/2024 Encounters Encounter Location Date Provider Diagnosis [facility] [address] [facility] [address] [facility] [address] [place] [address] 01/20/2024 Sterling Gilbert ADELIA (generalized anxiety disorder) F41.[address] [facility] [address] [place] [address] 11/02/2023 Provider Migration [address] [facility] [address] [place] [address] 11/03/2023 Provider Migration [address] [address] 11/19/2023 Sterling Gilbert Assessments Encounter Date Diagnosis (ICD Code) Assessment Notes Treatment Notes Treatment Clinical Notes Section Notes 01/20/2024 ADELIA (generalized anxiety disorder) (ICD-10 - F41.1) History of UTI and Stroke - Assessment: Patient has a history of UTI in July and a stroke in October, which led to hospitalizations and a transition to assisted living. Patient reports possible TIA during the UTI episode in July, with significant confusion at that time. - Plan: Continue monitoring her overall health and ensure appropriate follow-up with primary care and specialists as needed. Anxiety - Assessment: The patient is currently on BuSpar 15 mg twice a day for anxiety management. She reports ongoing anxiety and occasional shakiness. Patient reports feeling feverish and shaky at times, which may be related to anxiety or medication side effects. - Plan: Consider reducing the dosage of BuSpar to 20 mg daily, as 30 mg might be high for her age. Monitor her response to the adjusted dosage and reassess in three months or sooner if needed. She wish Dr Ge's office to handle all the medication changes. Overactive Bladder - Assessment: The patient discontinued Gemtesa due to suspected UTI and side effects. - Plan: Monitor her bladder symptoms and consider alternative treatments if necessary, in consultation with her primary care provider or a urologist. Visual Hallucinations (resolved) - Assessment: The patient experienced visual hallucinations after her stroke, which were possibly related to low sodium levels. No recent episodes have been reported. Hallucinations included seeing crazy looking animals and lasted for a couple of days. - Plan: Continue monitoring for any recurrence and address any underlying causes if they reappear. Mobility and Pain - Assessment: The patient reports difficulty walking and pain in her hips and legs. - Plan: Encourage her to continue physical therapy and consider pain management options if necessary. Monitor her progress and reassess in three months or sooner if needed. Social Engagement and Depression - Assessment: The patient has experienced a decrease in social activities and confidence since moving to assisted living. Patient has recently started participating in some activities, such as shopping trips and dining out. - Plan: Encourage her to gradually reintegrate into activities such as attending mandaen and engaging with fellow residents. Monitor her mood and consider additional interventions if depressive symptoms persist or worsen. Night Sweats - Assessment: The patient experiences night sweats, which could be a side effect of her medication. - Plan: Monitor her symptoms after adjusting the BuSpar dosage and consider further evaluation if the night sweats persist or worsen. Cognitive Function - Assessment: Patient's memory and cognitive function appear to be relatively intact, with no significant concerns noted during the assessment. Medication Management - Assessment: Patient is no longer managing her own medications in assisted living. - Plan: Encourage coordination with assisted living staff to ensure timely medication administration, especially for planned activities like mandaen attendance. Follow-up - Plan: Schedule a follow-up appointment in three months to assess the patient's progress and response to the adjusted BuSpar dosage, as well as her overall health and well-being. Encourage her to contact the clinic if any concerns arise before the scheduled follow-up. Communicate the medication change recommendation to Dr. Benoit (primary care physician) for implementation. 01/20/2024 Other Learning About Depression Screening material was printed referral to the local chapter or national office of the Alzheimer's Association (6-493-556-107 0; http://www.alz .org), the Alzheimer's Disease Education and Referral Center (ADEAR) (6-866-792-477 0; http://www.tobin .nih.gov/Alzhe imers/), History of UTI and Stroke - Assessment: Patient has a history of UTI in July and a stroke in October, which led to hospitalizations and a transition to assisted living. Patient reports possible TIA during the UTI episode in July, with significant confusion at that time. - Plan: Continue monitoring her overall health and ensure appropriate follow-up with primary care and specialists as needed. Anxiety - Assessment: The patient is currently on BuSpar 15 mg twice a day for anxiety management. She reports ongoing anxiety and occasional shakiness. Patient reports feeling feverish and shaky at times, which may be related to anxiety or medication side effects. - Plan: Consider reducing the dosage of BuSpar to 20 mg daily, as 30 mg might be high for her age. Monitor her response to the adjusted dosage and reassess in three months or sooner if needed. She wish Dr Ge's office to handle all the medication changes. Overactive Bladder - Assessment: The patient discontinued Gemtesa due to suspected UTI and side effects. - Plan: Monitor her bladder symptoms and consider alternative treatments if necessary, in consultation with her primary care provider or a urologist. Visual Hallucinations (resolved) - Assessment: The patient experienced visual hallucinations after her stroke, which were possibly related to low sodium levels. No recent episodes have been reported. Hallucinations included seeing crazy looking animals and lasted for a couple of days. - Plan: Continue monitoring for any recurrence and address any underlying causes if they reappear. Mobility and Pain - Assessment: The patient reports difficulty walking and pain in her hips and legs. - Plan: Encourage her to continue physical therapy and consider pain management options if necessary. Monitor her progress and reassess in three months or sooner if needed. Social Engagement and Depression - Assessment: The patient has experienced a decrease in social activities and confidence since moving to assisted living. Patient has recently started participating in some activities, such as shopping trips and dining out. - Plan: Encourage her to gradually reintegrate into activities such as attending mandaen and engaging with fellow residents. Monitor her mood and consider additional interventions if depressive symptoms persist or worsen. Night Sweats - Assessment: The patient experiences night sweats, which could be a side effect of her medication. - Plan: Monitor her symptoms after adjusting the BuSpar dosage and consider further evaluation if the night sweats persist or worsen. Cognitive Function - Assessment: Patient's memory and cognitive function appear to be relatively intact, with no significant concerns noted during the assessment. Medication Management - Assessment: Patient is no longer managing her own medications in assisted living. - Plan: Encourage coordination with assisted living staff to ensure timely medication administration, especially for planned activities like mandaen attendance. Follow-up - Plan: Schedule a follow-up appointment in three months to assess the patient's progress and response to the adjusted BuSpar dosage, as well as her overall health and well-being. Encourage her to contact the clinic if any concerns arise before the scheduled follow-up. Communicate the medication change recommendation to Dr. Benoit (primary care physician) for implementation. Plan Of Treatment No Information Insurance Providers Payer Name Payer Address Payer Phone Subscriber Number Group Number Insured Name Patient Relationship to Insured Coverage Start Date Coverage End Date Medicare-I l Medicare [address] [place] [address] [id number] LINETTE MONTALVO Self - patient is the insured [facility] [address] [place] [address] [id number] YOGESH MONTALVO Spouse - patient is the spouse of the insured Medical (General) History Medical History History ICD Code Problems: Gastroesophageal reflux diseas e without esophagitis Generalized anxiety disorder Severe recurrent major depression withou t psychotic features ,
--- OUTSIDE RECORDS SUMMARY | 2024-10-31 20:15 | XMS_ITS | Clinical Summary ---
Author Organization [facility] Address [address] [place] [address] Phone Care Team Providers Care Timber Grader Name Role Phone Colton Osullivan MD Primary Care Provider [phone] Rick Mcqueen DO Unavailable [phone] Allergies Active Allergy Reactions Criticality Noted Date Comments Pregabalin Unknown 05/30/2016 Neomycin Unknown 05/30/2016 Medications ALPRAZolam (XANAX) 0.25 MG Tablet Take 1 Tab by mouth 3 times daily as needed. 0 6 Active DYMISTA 137-50 MCG/ACT Suspension take 1 [place] by inhalation 2 times daily. 6 6 Active felodipine (PLENDIL) 5 MG TABLET SR 24 HR Take 1 Tab by mouth daily. 0 6 Active polyethylene glycol (GLYCOLAX) Powder Take 17 g by mouth daily. 0 6 Active potassium chloride SA (K-DUR) 20 MEQ Tablet Controlled Release Take 1 Tab by mouth 3 times daily. 0 6 Active naproxen sodium (ALEVE) 220 MG Tablet Take 440 mg by mouth as needed. Active Aspirin 81 MG Tablet Take 81 mg by mouth daily. Active Calcium Carbonate-Vitam in D (CALCIUM 500 + D PO) Take 1 Tab by mouth 2 times daily. Active Waves-3 Fatty Acids (FISH OIL PO) Take 300 mg by mouth 2 times daily. Active oxybutynin (DITROPAN-XL) 10 MG TABLET SR 24 HR Take 10 mg by mouth daily. Active pravastatin (PRAVACHOL) 20 MG Tablet Take 20 mg by mouth daily. Active raloxifene (EVISTA) 60 MG Tablet Take 60 mg by mouth daily. Active B Complex Vitamins (VITAMIN B COMPLEX PO) Take 1 Tab by mouth daily. Active biotin 300 MCG Tablet Take 300 mcg by mouth daily. Active Probiotic Product (PROBIOTIC DAILY PO) Take 1 Cap by mouth daily. Active FIBER, CORN DEXTRIN, PO Take 1 Cap by mouth daily. Active simethicone (MYLICON) 125 MG Chewable Tablet Take 80 mg by mouth every 6 hours as needed for Flatulence. Active LOSARTAN POTASSIUM PO Take 25 mg by mouth daily. Active Benzonatate 200 MG Capsule Take 200 mg by mouth 3 times daily as needed for Cough. Active diphenhydrAMINE (BENADRYL) 25 MG Capsule Take 25 mg by mouth every 6 hours as needed. Active cetirizine (ZYRTEC) 10 MG Tablet Take 10 mg by mouth daily. Active LORAZEPAM PO Take by mouth. Ac tive venlafaxine (EFFEXOR) 75 MG Tablet Take 75 mg by mouth 2 times daily. Active lubiprostone (AMITIZA) 24 MCG Capsule Take by mouth 2 times daily (with meals). Active Docusate Sodium (COLACE PO) Take by mouth 3 times daily. Active Acetaminophen (TYLENOL EXTRA STRENGTH PO) Take by mouth as needed. Active AMITIZA 24 MCG Capsule TAKE ONE CAPSULE BY MOUTH TWICE DAILY WITH MEALS 60 Cap 6 9 Active esomeprazole (NEXIUM) 20 MG CAPSULE DELAYED RELEASE TAKE ONE CAPSULE BY MOUTH DAILY 90 Cap 3 0 Active Immunizations Immunization Administration Dates Next Due Covid-19, Mrna, Lnp-s, Pf, 30 Mcg/0.3 Ml Dose (P fizer) 07/13/2020,06/22/2020 Family History Medical History Relation Name Comments Colon Cancer Father Relation Name Status Comments Father Social History Tobacco Use Types Packs/Day Years [...] file Not on file Not on file Last Filed Vital Signs Vital Sign Reading Time Taken Comments Blood Pressure 120/62 01/24/2018 10:06 AM CDT Pulse 78 01/24/2018 10:06 AM CDT Temperature 36.6 C (97.9 F) 01/24/2018 10:06 AM CDT Respiratory Rate 16 01/24/2018 10:06 AM CDT Oxygen Saturation 95% 01/24/2018 10:06 AM CDT Inhaled Oxygen Concentration - - Weight 57.6 kg (127 lb) 01/24/2018 10:06 AM CDT Height 154.9 cm (5' 1 ) 01/24/2018 10:06 AM CDT Body Mass Index 24 01/24/2018 10:06 AM CDT Plan of Treatment Health Maintenance Due Date Last Done Comments DEXA Bone Density 1935 Hepatitis C Virus (HCV) Screening 1935 Mammogram Unilateral 1935 TdaP Immunization 1935 Respiratory Syncytial Virus (RSV) Immunization (Adult) (1 - 1-dose 75+ series) 2010 Influenza Immunization (#1) 02/16/202402/16, 03/20/2018, 02/26/2017, Additional history exists SARS-COV-2 Immunization ( season) 2024 03/29/2021, 07/13/2020, 06/22/2020 Pneumococcal Immunization (50+ years) Completed 03/07/2019, 05/01/2015 Pneumococcal Immunization Combined Discontinued 03/07/2019, 05/01/2015 Zoster Immunization Completed 05/19/2019, 9 Hepatitis B Immunization Aged Out No longer eligible based on patient's age to complete this topic Meningococcal Immunization (ACWY) Aged Out No longer eligible based on patient's age to complete this topic Rotavirus Immunization Aged Out No lo nger eligible based on patient's age to complete this topic Insurance MEDICARE [facility] Care Teams Timber Grader Relationship Specialty Start Date End Date Colton Osullivan MD PCP - General Internal Medicine 05/29/16 Rick Mcqueen DO Gastroenterology 05/29/16
[2024-10-31 21:01] VITALS: BP 145/59; PULSE 56; RESP 17; O2SAT 97
[2024-10-31 22:06] LABS: Troponin I < 0.012 ng/mL (0.000-0.034)
[2024-10-31 22:08] VITALS: BP 154/64; PULSE 62; RESP 19; O2SAT 98
== END 2024-10-31 22:59 ==
PROVIDERS: Emergency Medicine; Emergency Provider Emergency Medicine; PCP Family Medicine
DX: R07.9 Chest pain, unspecified (principal); I10 Essential (primary) hypertension; E78.2 Mixed hyperlipidemia; G62.9 Polyneuropathy, unspecified; R73.03 Prediabetes; K21.9 Gastro-esophageal reflux disease without esophagitis; F32.A Depression, unspecified; F41.9 Anxiety disorder, unspecified; Z66 Do not resuscitate; Z85.3 Personal history of malignant neoplasm of breast; Z86.73 Personal history of transient ischemic attack (TIA), and cerebral infarction without residual deficits; Z96.652 Presence of left artificial knee joint; Z90.12 Acquired absence of left breast and nipple; Z79.82 Long term (current) use of aspirin; Z79.899 Other long term (current) drug therapy; R94.31 Abnormal electrocardiogram [ECG] [EKG]
CPT/HCPCS: 36415; 71045; 80053; 83690; 84484; 85025; 85610; 85730; 93005; 99284

== ENCOUNTER 2024-12-27 10:57 | Emergency (ER) | payer MEDICARE, BC, SELFPAY ==
--- NOTE | ~2024-12-27 | CT_ITS ---
CT of the Abdomen and Pelvis: Indication: Abdominal pain Technique: 2.5 mm axial scans were obtained through the abdomen and pelvis following intravenous adm inistration of 100 cc of Omnipaque 350. Dose reduction technique was used on this scan by utilizing a utomated exposure control and iterative reconstruction technique. The dose-length product (DLP) was 1 69.82 mGy-cm. COMPARISON: 08/03/2023 Findings: Scans through the lung bases demonstrates stable right lower lobe pulmonary nodules measur ing 6 mm and 10 mm in size (axial images 20, 24). Stable focal peripheral density at the right middle lobe (axial image 14). Moderate hiatal hernia present. The liver, spleen, pancreas, gallbladder, adrenals and kidneys are within normal limits. There are at herosclerotic calcifications of the aorta. No lymphadenopathy. No bowel obstruction or bowel wall thickening. There is no evidence to suggest acute appendicitis. Images through the pelvis were performed. Urinary bladder unremarkable. No pelvic mass seen. No ascit es. Impression: No acute abnormality. Moderate hiatal hernia. Stable right lower lobe pulmonary nodules, as detailed above, largest measuring 10 mm. Reviewed, dictated and finalized at location . Impression: No acute abnormality. Moderate hiatal hernia. Stable right lower lobe pulmonary nodules, as detailed above, largest measuring 10 mm.
[2024-12-27 11:01] VITALS: BP 152/57; PULSE 60; RESP 16; TEMP 36.4; O2SAT 99
[2024-12-27 11:28] LABS: Hematocrit 39.8 % (37.0-47.0); Hemoglobin 13.6 g/dL (12.0-15.0); Immature Granulocyte Percent A 0.2 % (0-0.5); Lymphocytes Absolute Auto 1.39 K/mm3 (0.9-3.2); Mean Corpuscular HGB Conc 34.2 g/dl (32-36); Mean Corpuscular Hemoglobin 31.6 pg (26-34); Mean Corpuscular Volume 92.3 fl (80-100); Nucleated Red Blood Cells Absolute Auto 0.000 K/mm3 (0.0-0.012); Nucleated Red Blood Cells Perc 0.0 % (0.0-0.2); Platelet Count Result 294 k/mm3 (150-375); Red Blood Count 4.31 M/mm3 (4.2-5.4); White Blood Count 6.3 K/mm3 (4.5-10.0)
[2024-12-27 11:39] LABS: Alanine Aminotransferase 17 U/L (6-35); Albumin Level 4.1 g/dL (3.5-5.1); Alkaline Phosphatase 60 U/L (38-126); Anion Gap 9 mmol/L (4-12); Aspartate Amino Transferase 27 U/L (14-36); Bilirubin,Total 0.7 mg/dL (0.2-1.3); Blood Urea Nitrogen 12 mg/dL (7-17); Calcium 9.5 mg/dL (8.4-10.2); Carbon Dioxide 24 mmol/L (22-30); Chloride 94 mmol/L (98-107); Estimated CRCL calculation 43 ml/min; Estimated Glomerular Filt Rate > 60; Glucose 111 mg/dL (65-110); Lipase 302 U/L (23-300); Potassium 4.0 mmol/L (3.4-5.0); Sodium 127 mmol/L (137-145); Total Protein 6.9 g/dL (6.3-8.2)
--- OUTSIDE RECORDS SUMMARY | 2024-12-27 11:39 | XMS_ITS | Patient Health Record ---
Author Organization [facility] [employer] Address [address] [place] [address] Care Team Providers Care Rigger Supervisor Name Role Phone HERNAN SANFORD MD Primary Care Provider Unavail able Sterling Gilbert Unavailable [phone] Allergies Allergen (clinical drug ingredient) Drug/Non Drug [...] Oxazepam (BZO) N 0 - 300 ng/ml 4-rjlablujrg-2,2-oakqbens-0,3-diphenylpyrrolidine (DINO P) N 0 - 300 ng/ml Methamphetamine (MET) N 0 - 1000 ng/ml Methylenedioxymethamphetamine (MDMA) N 0 - 500 ng/ml Morphine (MOP 300/[id number]) N 0 - 300 ng/ml Methadone (MTD) [...] 100 MG TAKE 1 CAPSULE BY MO UTH THREE TIMES DAILY NEEDED FOR COUGH Oral; Duration: 10 Days Active busPIRone HCl 15 MG 1 tablet Oral Twice a day Active Melatonin 5 MG 1 tablet in the even ing Orally Once a day Active Rosuvastatin Calcium 20 MG TAKE 1 TABLET BY MOUTH EVERY MORNING Oral; Duration: 90 Days Active Aspirin Low Dose 81 MG TAKE 1 TABLET BY MOUTH EVERY MORNING Oral; Duration: 90 Days Active Esomeprazole Magnesium 20 MG TAKE 1 CAPSULE BY MOUTH DAILY Oral; Duration: 90 Days Active Losartan Potassium 50 MG TAKE 1 TABLET B Y MOUTH DAILY Oral; Duration: 90 Days Active Celecoxib 200 MG Oral; Duration: 14 Days Active Felodipine ER 10 MG TAKE 1 TABLET BY DARIUS TH DAILY Oral; Duration: 90 Days Active Immunizations Vaccine Route Administration Date Status Comme nts Zoster Unknown 03/07/2019 Administered Zoster Unknown 05/19/2019 Administered Pneumococcal polysaccharide PPV23 Unknown 03/07/2019 Ad ministered Pneumococcal conjugate PCV 13 Unknown 05/01/2015 Admini stered Pfizer Biontech Covid-19 Vac cine 2nd dose Unknown 06/22/2020 Administered Pfizer Biontech Covid-19 Vac cine 2nd dose Unknown 07/13/2020 Administered Infuenza, trivalent, recombi nant, preservative free Unknown 03/20/2018 Administered Influenza, unspecified formulation Unknown 03/05/2012 A dministered Influenza, seasonal, injecta ble, preservative free, 3 yrs and above Unknown 02/25/2013 Administered Influenza, seasonal, injecta ble, preservative free, 3 yrs and above Unknown 03/04/2014 Administered Influenza, high dose seasonal Unknown 03/21/2015 Admini stered Influenza, high dose seasonal Unknown 02/22/2016 Admini stered Influenza, high dose seasonal Unknown 02/26/2017 Admini stered Influenza, high dose seasonal Unknown 03/07/2019 Admini stered Social History Tobacco Use: Social History Observation [...] 01/20/2024 Encounters Encounter Location Date Provider Diagnosis [facility] [address] [place] [address] 01/20/2024 Sterling Gilbert ADELIA (generalized anxiety disorder) F41.1 Assessments Encounter Date Diagnosis (ICD Code) Assessment [...] gradually reintegrate into activities such as attending latter day and engaging with fellow residents. Monitor her [...] medication administration, especially for planned activities like latter day attendance. Follow-up - Plan: Schedule a follow-up [...] or national office of the Alzheimer's Association (7-269-775-408 0; http://www.alz .org), the Alzheimer's Disease Education and Referral Center (ADEAR) (8-087-322-116 0; http://www.tobin .nih.gov/Alzhe imers/), History of UTI [...] gradually reintegrate into activities such as attending latter day and engaging with fellow residents. Monitor her [...] medication administration, especially for planned activities like latter day attendance. Follow-up - Plan: Schedule a follow-up [...] End Date Medicare-I l Medicare [address] [place] [address] [id number] LINETTE MONTALVO Self - patient is the insured [facility] [address] [place] [address] [id number] YOGESH MONTALVO Spouse - patient is the spouse of the insured Medical (General) History Medical History History ICD Code Problems: Gastroesophageal reflux diseas e without esophagitis Generalized anxiety disorder Severe recurrent major depression withou t psychotic features ,
--- OUTSIDE RECORDS SUMMARY | 2024-12-27 11:39 | XMS_ITS | Encounter Summary ---
Author Organization [facility] Address [address] [place] [address] Phone Care Team Providers Care Lab Nurse Name Role Phone Colton Osullivan MD Primary Care Provider Rick Mcqueen DO Unavailable [phone] Reason for Visit * Reason Comments Medication Refill Encounter Details Date Type Department Care Team (Late st Contact Info) Description 08/21/2020 Refill [facility] - [place] [address] [place] [id number] Rick Mcqueen, DO [address] [place] [address] [place] [address] Medication Refill Social History Tobacco Use Types [...] Rayna Vasquez CMA - 08/22/2020 8:23 AM LOCOMOTIVE OILER Patient notified on 08/25/2019 future refills to go through her primary, we have not seen patient since 01/24/2018 MOTIVE OILER documented in this encounter Plan of Treatment Not on file documented as of this encounter Visit Diagnoses Not on filedocumented in this encounter Care Teams Lab Nurse Relationship Specialty Start Date End Date Colton Osullivan MD PCP - General Internal Medicine 05/29/16 Rick Mcqueen DO Gastroenterology 05/29/16 documented as of this encounter
--- OUTSIDE RECORDS SUMMARY | 2024-12-27 11:39 | XMS_ITS | Clinical Summary ---
Author Organization [facility] Address [address] [place] [address] Phone Care Team Providers Care Credit Support Counselor Name Role Phone Colton Osullivan MD Primary Care Provider Rick Mcqueen DO Unavailable [phone] Allergies Active Allergy Reactions Criticality Noted Date Comments Pregabalin Unknown 05/30/2016 Neomycin Unknown 05/30/2016 Medications ALPRAZolam (XANAX) 0.25 MG Tablet Take 1 Tab by mouth 3 times daily as needed. 0 6 Active DYMISTA 137-50 MCG/ACT Suspension take 1 [place] by inhalation 2 times daily. 6 6 [...] Tab by mouth 2 times daily. Active Conklin-3 Fatty Acids (FISH OIL PO) Take 300 [...] 10:06 AM CDT Height 154.9 cm (5' 1) 01/24/2018 10:06 AM CDT Body Mass Index 24 01/24/2018 10:06 AM CDT Plan of Treatment Health Maintenance Due Date Last Done Comments Hepatitis C Virus (HCV) Screening 1935 TdaP Immunization 1935 Respiratory Syncytial Virus (RSV) Immunization (Adult) (1 - 1-dose 75+ series) 2010 SARS-COV-2 Immunization (2023- season) 2024 03/29/2021, 07/13/2020, 06/22/2020 Influenza Immunization (#1) 2025 092 06/2018, 03/20/2018, 02/26/2017, Additional history exists Pneumococcal Immunization (50+ years) Completed 03/07/2019, 05/01/2015 Pneumococcal Immunization Combined Discontinued 03/07/2019, 05/01/2015 Zoster Immunization Completed 05/19/2019, 9 Hepatitis B Immunization Aged Out No longer eligible based on patient's age to complete this topic Human Papillomavirus (HPV) Immunization Aged Out No longer eligible based on patient's age to complete this topic Meningococcal Immunization (ACWY) Aged Out No longer eligible based on patient's age to complete this topic Rotavirus Immunization Aged Out No lo nger eligible based on patient's age to complete this topic Insurance MEDICARE [facility] Care Teams Credit Support Counselor Relationship Specialty Start Date End Date Colton Osullivan MD PCP - General Internal Medicine 05/29/16 Rick Mcqueen DO Gastroenterology 05/29/16
[2024-12-27 11:55] LABS: Add Urine Microscopic? YES; Appearance Urine Clear (Clear); Glucose Urine UA Negative (Negative); Leukocyte Esterase Ur Trace LEU/UL (Negative); Need Manual Microscopic Reviewed; Nitrate Urine Negative (Negative); Non Pathogenic Casts 0-2; Specific Grav Ur 1.015 (1.001-1.035)
--- NOTE | 2024-12-27 12:54 | ED.GENADULT ---
HPI - General Adult General Chief complaint: Abdominal Pain Stated complaint: abd pain Time Seen by Provider: 12/27/24 11:29 History of Present Illness HPI narrative: This is an 89-year-old female presenting ED for chief complaint of abdominal burning. Patient has been having URI symptoms over the last several days including cough congestion. Then today she burning in the suprapubic region that is associated with nonbloody loose stools. She does not have any dysuria urgency or frequency. She does not have any fevers nausea or vomiting. 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 Sibling Neuropathy Brain tumor Other Malignant neoplasm of prostate Social History Social History Social History: Surrogate medical decision maker: Nate Fabian, son. Code status: DNR. Smoking status: Never smoker Second hand tobacco smoke exposure: Yes Alcohol intake: never Drinks per week: 1 Substance use: never Do You Feel Safe in your Home?: Yes Lack of Transportation: No Lack of Food: Never True Current Housing: I Have Housing Concerned About Future Housing: No Difficulty Paying Gas/Electric Bills: No Difficulty Paying for Meds: No Currently Unemployed: No Education: High School Diploma/GED Difficulty w/ Childcare or Family Care: No Living arrangements: [facility] Additional living arrangements comments: Independent living at [facility] 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 Spiritual care concerns: No Exam Narrative: APPEARANCE: No apparent distress. Head: atraumatic. EYES: EOMI, NOSE: Atraumatic NECK: Trachea midline RESPIRATORY: No increased rate of breathing clear to auscultation CARDIOVASCULAR: RRR, ABDOMINAL: Non-distended soft nontender no guarding or rebound MUSCULOSKELETAl: No obvious deformities NEURO: Alert. Moving 4/4 extremities SKIN:: Warm, dry. Normal color PSYCHIATRIC: Normal affect Course Vital Signs Vital signs: Vital Signs Temperature 97.6 F 12/27/24 11:01 Pulse Rate 60 12/27/24 11:01 Respiratory Rate 16 12/27/24 11:01 Blood Pressure 152/57 H 12/27/24 11:01 Pulse Oximetry 99 12/27/24 11:01 Temperature 97.6 F 12/27/24 11:01 Pulse Rate 60 12/27/24 11:01 Respiratory Rate 16 12/27/24 11:01 Blood Pressure 152/57 H 12/27/24 11:01 Pulse Oximetry 99 12/27/24 11:01 Medical Decision Making MDM Narrative Medical decision making narrative: -Course: A 9-year-old female presenting with suprapubic pain and loose stools. Abdominal exam is benign. Vital signs are stable. Patient has declined all pain medication appears to be resting comfortably. Urine not indicative infection. CT abdomen pelvis with no acute findings. Laboratory studies within normal limits. Sodium is 127 although that is a chronic issue for her. I suspect her suprapubic discomfort is due to colonic spasm/inflammation from her viral illness and loose stools. Patient denied any pain medication. The patient will be discharged home with return precautions. -DDX includes but is not limited to: UTI, colitis, diverticulitis, appendicitis, viral illness Vital Signs Vital Signs: Vital Signs Temperature 97.6 F 12/27/24 11:01 Pulse Rate 60 12/27/24 11:01 Respiratory Rate 16 12/27/24 11:01 Blood Pressure 152/57 H 12/27/24 11:01 Pulse Oximetry 99 12/27/24 11:01 Temperature 97.6 F 12/27/24 11:01 Pulse Rate 60 12/27/24 11:01 Respiratory Rate 16 12/27/24 11:01 Blood Pressure 152/57 H 12/27/24 11:01 Pulse Oximetry 99 12/27/24 11:01 Lab Data 12/27/24 11:18 12/27/24 11:18 Labs: Lab Results 12/27/24 12/27/24 Range/Units 11:18 11:36 WBC 6.3 (4.5-10.0) K/mm3 RBC 4.31 (4.2-5.4) M/mm3 Hgb 13.6 (12.0-15.0) g/dL Hct 39.8 (37.0-47.0) % MCV 92.3 (80-100) fl MCH 31.6 (26-34) pg MCHC 34.2 (32-36) g/dl RDW 11.8 (11.5-14.5) % Plt Count 294 (150-375) k/mm3 MPV 8.5 (7.4-10.4) fl Immature Gran % (Auto) 0.2 (0-0.5) % Neut % (Auto) 67.9 (45.5-73.1) % Lymph % (Auto) 22.1 (18.3-44.2) % [place] % (Auto) 8.9 H (2.6-8.5) % Eos % (Auto) 0.6 (0-4.4) % Baso % (Auto) 0.3 (0.2-1.2) % Lymph # (Auto) 1.39 (0.9-3.2) K/mm3 [place] # (Auto) 0.6 (0.1-0.6) K/mm3 Eos # (Auto) 0.0 (0-0.3) K/mm3 Baso # (Auto) 0.0 (0.0-0.1) K/mm3 Abs Immat Gran (auto) 0.01 (0.00-0.031) K/mm3 Absolute Neuts (auto) 4.3 (1.3-6.7) K/mm3 Absolute Nucleated RBC 0.000 (0.0-0.012) K/mm3 Nucleated RBC % 0.0 (0.0-0.2) % Sodium 127 L (137-145) mmol/L Potassium 4.0 (3.4-5.0) mmol/L Chloride 94 L (98-107) mmol/L Carbon Dioxide 24 (22-30) mmol/L Anion Gap 9 (4-12) mmol/L BUN 12 D (7-17) mg/dL Creatinine 0.59 L (0.7-1.0) mg/dL Estim Creat Clear Calc 43 ml/min Estimated GFR > 60 (59 - ) Glucose 111 H (65-110) mg/dL Lactic Acid 1.1 (0.7-2.0) mmol/L Calcium 9.5 (8.4-10.2) mg/dL Total Bilirubin 0.7 (0.2-1.3) mg/dL AST 27 (14-36) U/L ALT 17 (6-35) U/L Alkaline Phosphatase 60 (38-126) U/L Total Protein 6.9 (6.3-8.2) g/dL Albumin 4.1 (3.5-5.1) g/dL Lipase 302 H (23-300) U/L Urine Color Yellow (Yellow) Urine Appearance Clear (Clear) Urine pH 7.0 (5.0-9.0) Ur Specific [place] 1.015 (1.001-1.035) Urine Protein Trace (Negative) mg/dL Urine Glucose (UA) Negative (Negative) mg/dL Urine Ketones Negative (Negative) mg/dL Ur Blood (Man) Negative (Negative) Urine Nitrate Negative (Negative) Urine Bilirubin Negative (Negative) Urine Urobilinogen 1.0 (<2.0) mg/dL Add Ur Microanalysis Reviewed Leukocyte Esterase Rfl Trace H (Negative) IRAIS/UL Urine RBC 6-10 H (0-2) /hpf Urine WBC 0-5 (0-3) /hpf Ur Squamous Epith Cells None seen (Few) /hpf Urine Bacteria None seen /hpf Urine Casts 0-2 Discharge Plan Discharge Clinical Impression: Abdominal pain, Loose stools Patient Disposition: Home Condition: Stable Instructions: Antibiotic Form, Abdominal Pain (ED) Additional Instructions: He was seen emergency department for abdominal pain. Your laboratory studies, urinalysis and CT abdomen pelvis were unremarkable. I suspect her pain is due to the loose stools you been having from your viral illness. You can use Imodium as needed. Please return if you develop fevers severe abdominal pain or bloody stools. Patient Language: Maldivian Prescriptions: New loperamide [Imodium A-D] 2 mg capsule 2 mg PO Q6H PRN (Reason: loose stool) Qty: 30 0RF No Action losartan 100 mg tablet 100 mg PO DAILY Qty: 90 0RF duloxetine 20 mg capsule,delayed release(DR/EC) 20 mg PO DAILY Qty: 30 6RF Rx Instructions: 1 capsule daily morning. May be increased to 1 capsule twice a day if necessary clonidine HCl 0.1 mg tablet 0.1 mg PO ONCE PRN (Reason: hypertensive emergency) Qty: 30 0RF Rx Instructions: TAKE 1 TABLET NEEDED FOR SYSTOLIC BLOOD PRESSURE 170 AND ABOVE MAXIMUM 2 TABLETS A DAY. aspirin 81 mg Tablet,Delayed Release (Dr/Ec) 81 mg PO QAM Qty: 90 3RF esomeprazole magnesium 20 mg capsule,delayed release(DR/EC) 20 mg PO DAILY Qty: 90 2RF felodipine 10 mg tablet extended release 24 hr 10 mg PO DAILY Qty: 90 1RF rosuvastatin 20 mg tablet 20 mg PO QAM Qty: 90 3RF biotin 1 mg tablet See Rx Instructions .ROUTE .COMPLEX Qty: 90 3RF Dose Instruction: TAKE ONE TABLET BY MOUTH EVERY DAY IN THE EVENING DIRECTED Rx Instructions: TAKE ONE TABLET BY MOUTH EVERY DAY IN THE EVENING DIRECTED PreserVision AREDS 4,296 mcg-226 mg-90 mg capsule 1 cap PO BID Qty: 60 5RF mirabegron [Myrbetriq] 25 mg tablet extended release 24 hr 25 mg PO DAILY Qty: 30 4RF biotin 1,000 mcg tablet,chewable 1,000 mcg PO DAILY Qty: 90 0RF meloxicam 15 mg tablet 15 mg PO DAILY Qty: 90 0RF vitamin B complex Capsule 1 cap PO DAILY Qty: 1 0RF Rx Instructions: OTC ferrous sulfate [FeroSul] 325 mg (65 mg iron) tablet 325 mg PO DAILY Qty: 90 0RF buspirone 15 mg tablet 15 mg PO BID Qty: 60 2RF nebivolol [Bystolic] 20 mg tablet 20 mg PO DAILY Qty: 90 0RF docusate sodium 100 mg capsule 100 mg PO DAILY Qty: 90 0RF senna 8.6 mg capsule 8.6 mg PO DAILY PRN (Reason: constipation) Qty: 90 0RF guaifenesin [Mucinex] 600 mg tablet extended release 12hr 600 mg PO Q12H Qty: 20 0RF dextromethorphan polistirex [Robitussin ER] 30 mg/5 mL suspension,extended rel 12 hr 10 ml PO Q12H PRN (Reason: cough) Qty: 89 0RF loratadine [Claritin] 10 mg tablet 10 mg PO DAILY Qty: 30 0RF Follow-up/Referrals: Abelino Rock MD [Primary Care Provider] -
[2024-12-27 13:23] VITALS: BP 152/57; PULSE 78; RESP 16; O2SAT 96
== END 2024-12-27 13:28 | disposition home or self-care (01) ==
PROVIDERS: Emergency Medicine; Emergency Provider Emergency Medicine; PCP Family Medicine
DX: R10.30 Lower abdominal pain, unspecified (principal); R19.7 Diarrhea, unspecified; I10 Essential (primary) hypertension; E78.2 Mixed hyperlipidemia; K21.9 Gastro-esophageal reflux disease without esophagitis; G62.9 Polyneuropathy, unspecified; R73.03 Prediabetes; F41.9 Anxiety disorder, unspecified; Z96.652 Presence of left artificial knee joint; Z85.3 Personal history of malignant neoplasm of breast; Z86.73 Personal history of transient ischemic attack (TIA), and cerebral infarction without residual deficits; Z98.49 Cataract extraction status, unspecified eye; Z90.12 Acquired absence of left breast and nipple; Z66 Do not resuscitate; Z79.82 Long term (current) use of aspirin; Z79.899 Other long term (current) drug therapy
CPT/HCPCS: 36415; 74177; 80053; 81001; 83605; 83690; 85025; 99284; Q9967